=== PATIENT | female | born 1970 | race Caucasian/White ===

== ENCOUNTER 2020-03-28 04:04 | Inpatient (IN) | payer OTHER ==
[2020-03-28 04:45] LABS: INR-International Normal Ratio 1.4; PTT 37.1 sec (22.9-36.1); Prothrombin Time 17.5 sec (12.0-14.7)
[2020-03-28 05:16] LABS: Band 14 % (5-11); Hemoglobin 13.3 g/dL (12.0-16.0); Lymphocytes 2 % (21-51); MDiff Complete? YES; Mean Corpuscular HGB CONC 31.9 g/dL (32.0-36.0); Mean Corpuscular Hemoglobin 36.9 pg (27.0-31.0); Mean Platelet Volume 9.7 fL (7.4-10.4); Monocytes 4 % (0-10); Neutrophil 80 % (42-75); Platelet Count 227 thou/uL (130-400); Platelet Morphology Comment Appears Adequate; RBC Distribution Width 15.7 % (11.5-14.5); White Blood Cell (WBC) Count 28.8 thou/uL (4.8-10.8)
[2020-03-28 05:53] LABS: Albumin 2.8 g/dL (3.5-5.0)
[2020-03-28 05:54] LABS: Chloride 87 mmol/L (98-107); Potassium 3.4 mmol/L (3.5-5.1); Sodium 129 mmol/L (136-145)
[2020-03-28 05:55] LABS: Calcium 8.6 mg/dL (7.8-10.44)
[2020-03-28 05:56] LABS: Globulin 4.1 g/dL (2.4-3.5); Glucose 75 mg/dL (70-105); Protein, Total 6.9 g/dL (6.0-8.3)
[2020-03-28 05:57] LABS: Anion Gap 26 mmol/L (10-20); Bilirubin, Total 11.4 mg/dL (0.2-1.2); Carbon Dioxide 19 mmol/L (22-29)
[2020-03-28 05:59] LABS: Alkaline Phosphatase 451 U/L (40-110); Calc. Creatinine Clearance 0 mL/min (70-130); Estimated GFR-MDRD 71
[2020-03-28 06:00] LABS: BUN (Urea Nitrogen) 15 mg/dL (7.0-18.7)
[2020-03-28 06:01] LABS: AST (SGOT) 165 U/L (5-34)
[2020-03-28 06:02] LABS: ALT (SGPT) 93 U/L (8-55); Lipase 211 U/L (8-78)
--- NOTE | 2020-03-28 07:26 | RAD ---
RADIOGRAPH CHEST 1 VIEW: DATE: 03/28/2020 HISTORY: 49-year-old female with dyspnea and chest pain FINDINGS: There are no airspace densities, pulmonary edema, pneumothorax, or cardiomegaly. The lateral costophr enic angles are sharp. IMPRESSION: No acute cardiopulmonary findings.
--- NOTE | 2020-03-28 07:52 | CT ---
PRELIMINARY REPORT/[facility]/EMERGENCY AFTER HOURS PROCEDURE Receipt of this report by the clinical staff was confirmed with Lydia Rodriguez MD by Laura Yin on Mar 28, 2020 05:11:00 CDT. Addendum electronically signed by Beryl Yin on March 28, 2020 5:16:31 AM CDT EXAM: CT Abdomen and Pelvis with Intravenous Contrast CLINICAL HISTORY: Patient reports she has been having nausea and vomiting for over a month. Patient reports today she a lso has chest pain and shortness of breath today. Patient's abdomen is distended and skin appears jaundiced. Surgical history of cholecystectomy TECHNIQUE: Axial computed tomography images of the abdomen and pelvis with intravenous contrast. Coronal and sa gittal reformatted images provided. CONTRAST: With; ISOVUE 370, 95 ML intravenous. COMPARISON: CT\SR - CT ABDOMEN W WO CON - 10/05/2005 11:58 AM KETTLE HAND FINDINGS: LUNG BASES: No basilar airspace consolidation or pleural effusion. The heart is normal size. No pericardial eff usion. LIVER: Heterogeneous low attenuation of the liver with enlargement. The liver measures 22.6 cm in the right hepatic lobe. Portal vein is patent. No intrahepatic biliary dilation. GALLBLADDER AND BILE DUCTS: Surgical clips in the gallbladder fossa from prior cholecystectomy. No biliary duct dilation. PANCREAS: Unremarkable. No mass or ductal dilation. SPLEEN: Unremarkable. ADRENAL GLANDS: Unremarkable. KIDNEYS, URETERS, AND BLADDER: Unremarkable. No hydronephrosis or nephrolithiasis. No ureteral or bladder calculi. STOMACH AND BOWEL: No obstruction. No wall thickening. No CT evidence of colitis or acute diverticulitis. APPENDIX: No CT evidence for appendicitis. PERITONEUM: Intra-abdominal ascites and perihepatic ascites. No abscess. No intra-abdominal free air. LYMPH NODES: No lymphadenopathy. REPRODUCTIVE: Enhancing left adnexal mass measuring up to 6.2 cm. Enhancing uterine masses likely representing fibr oids which measure 3.9 cm and 3.7 cm respectively. VASCULATURE: No aortic aneurysm. BONES: No fracture or suspicious osseous abnormality. ABDOMINAL WALL AND SOFT TISSUES: Diffuse subcutaneous edema. IMPRESSION: 1. 6.2 cm left adnexal mass. 2. Intra-abdominal ascites and subcutaneous edema. Correlate for volume overload status, portal hyper tension or malignant ascites. 3. Hepatomegaly with heterogeneous low density. While nonspecific, this could represent acute hepatit is with edema, multiple intrahepatic masses, or less likely hepatic steatosis. Correlate with laboratory values. Further evaluation with ultrasound may be useful. 4. Uterine masses, which most commonly represent uterine fibroids. ELECTRONICALLY SIGNED BY: Paco Cronin M.D. Mar 28, 2020 5:07:40 AM CDT This report is intended for review by the ordering physician only, in accordance of law. If you recei ve this report in error, please call [facility] at [phone]. FINAL REPORT EXAM: CT ABDOMEN AND PELVIS HISTORY: Nausea and vomiting x1 month. Chest pain. Abdominal distention. Jaundice. COMPARISON: 07/06/2016, 10/05/2005 Procedure: Multiple contiguous axial images were obtained and a CT of the abdomen and pelvis with IV contrast. C oronal reformats were performed. FINDINGS: Lower Chest: within normal limits. Vessels: Normal caliber aorta Heart: Normal heart size. No significant pericardial fluid Abdomen: Portal vein:Patent Gallbladder: Surgically absent Liver: Enlarged heterogeneous liver with areas of fatty infiltration and fatty sparing. Better interr ogation of the hepatic parenchyma with an abdomen MRI is recommended. Pancreas: within normal limits. Spleen: within normal limits. Adrenals: within normal limits. Kidneys: Symmetric enhancement. No obstructive uropathy. Peritoneum: No free air or masses. There is extensive free fluid in the pelvis and abdomen. Bowel: Limited evaluation due to the lack of oral contrast administration. No evidence of bowel obstr uction. Ileocecal junction is unremarkable. Appendix is not appreciated. Nonspecific fluid adjacent to the cecal apex.. Scattered fecal material in a nondistended, nondilated colon. Mesentery and Retroperitoneum: No enlarged mesenteric or retroperitoneal lymph nodes. Abdominal Wall: Extensive edema in the subcutaneous fat suggesting anasarca Pelvis: Reproductive Organs: Heterogeneous appearing uterus with exophytic masses in the left adnexa, incompl etely evaluated. Additional exophytic mass is noted in the anterior aspect of the uterus. Pelvis: There is free fluid in the pelvis. Bladder: within normal limits. Bones: within normal limits. IMPRESSION: 1. This report is in agreement with initial report by [facility]. 2. Enlarged heterogeneous liver with areas of fat attenuation. Correlate clinically. Liver MRI would be beneficial for further interrogation. 2. Multiple uterine masses likely representing exophytic uterine leiomyomas. Confirmation pelvic MRI is recommended. The left adnexal lesion may be of ovarian origin. Better interrogation with pelvic MRI is recommended. 4. Nonvisualization of the appendix. Correlate clinically. Results of study conveyed to Dr. Du via [employer] connect 03/28/2020 at 8:06 AM code CR Transcribed Date/Time: 03/28/2020 7:58 AM
--- NOTE | 2020-03-28 07:57 | HP ---
PRIMARY CARE PROVIDER: Ebony Mccormick MD CHIEF COMPLAINT: Abdominal pain and distention. HISTORY OF PRESENT ILLNESS: This is a 49-year-old female, who presents to [facility] Emergency Department complaining of a several-month history of progressive abdominal distention, bloating with progressive decreased oral intake, intermittent nausea and lower extremity swelling. The patient noticed the symptoms earlier in the year of 2019; however, due to the COVID pandemic, was unable to secure timely followup and evaluation for her symptoms. The patient was previously taking antihypertensive medications as well as sertraline, which she states she is currently not taking due to inadequate followup with her primary care provider. The patient denied any trauma injury, travel history, family members with similar symptoms or strong family history of cancer. The patient states even though her abdomen is growing in size and feels uncomfortable, she continues to lose weight. She admits to decreased appetite and frequently has nausea and emesis. The patient also admits to loose stool consistently several times daily. The patient admits to decreased exercise or activity tolerance, becoming fatigued with minimal exertion. The patient denies taking any specific medication or therapy to alleviate her symptoms. The patient states she had some anxiety about following up and seeking a workup for her issues subsequently causing the delay and late presentation. In the emergency room, the patient underwent general evaluation including CT of the abdomen and pelvis showing massive hepatomegaly with evidence of likely metastatic process including a left adnexal mass with associated ascites. Metabolic screening revealed transaminitis with elevated total bilirubin of 11.4. PAST MEDICAL HISTORY: 1. Hypertension. 2. Fibromyalgia. 3. Migraine headaches. PAST SURGICAL HISTORY: 1. Status post cholecystectomy. 2. Status post tonsillectomy. ACCOUNTING SUPERVISOR HISTORY: Three prior miscarriages. Last Pap smear several years prior to this evaluation, but no history of abnormal Pap smears. Last menstrual period in August 2019, previous to this time was one year prior. CURRENT MEDICATIONS: Previously taking, 1. Losartan. 2. Metoprolol. 3. Clonidine. 4. Sertraline. None currently. ALLERGIES: NO KNOWN DRUG ALLERGIES. FAMILY HISTORY: Father with Alzheimer dementia. SOCIAL HISTORY: Resides in the [facility]. Self-employed. No current alcohol, tobacco or illicit drug use. Functional of all activities of daily living. REVIEW OF SYSTEMS: CONSTITUTIONAL: Negative for weight loss or gain, ability to conduct usual activities. SKIN: Negative for rash, itching. EYES: Negative for double vision, pain. ENT/MOUTH: Negative for nose bleeding, neck stiffness, pain, tenderness. CARDIOVASCULAR: Negative for palpitations, dyspnea on exertion, orthopnea. RESPIRATORY: Negative for shortness of breath, wheezing, cough, hemoptysis, fever or night sweats. GASTROINTESTINAL: Negative for poor appetite, abdominal pain, heartburn, nausea, vomiting, constipation, or diarrhea. GENITOURINARY: Negative for urgency, frequency, dysuria, nocturia. MUSCULOSKELETAL: Negative for pain, swelling. NEUROLOGIC/PSYCHIATRIC: Negative for anxiety, depression. ALLERGY/IMMUNOLOGIC: Negative for skin rash, bleeding tendency. Otherwise negative except as stated per HPI. PHYSICAL EXAMINATION: VITAL SIGNS: On admission, blood pressure 137/96, pulse 115, respiratory rate 20, temperature 98.2 degrees Fahrenheit, and O2 saturation 100% on room air. GENERAL APPEARANCE: This is a 49-year-old female, alert and oriented x3, pleasant, in mild distress. HEENT: Pupils are equal, round, reactive to light and accommodation. Extraocular muscles are intact. Bilateral scleral icterus noted. No conjunctival injection. Nares patent. OP is clear. Teeth in fair repair. NECK: Supple. No cervical adenopathy. No thyromegaly. No carotid bruits. No JVD appreciated. Cervical spine with full active and passive range of motion. No meningeal signs noted. CHEST: Diminished breath sounds in the bases bilaterally, otherwise clear. CARDIOVASCULAR EXAM: S1, S2 with tachycardia. No murmur, rub or gallop appreciated. ABDOMEN: Distended with tenderness to palpation diffusely. Hepatomegaly noted with liver margin 6 cm below the costal margin on the right and midline. Bowel sounds are positive in all 4 quadrants. There is no rebound or guarding noted. No CVA tenderness appreciated. EXTREMITIES: Warm and dry with fair turgor. Pitting edema to the knees bilaterally. Pulses palpable distally at the dorsalis pedis, posterior tibial, and popliteal arteries bilaterally. Capillary refill less than 2 seconds. NEUROLOGIC: Cranial nerves 2 through 12 are grossly intact. No focal or lateralizing signs appreciated. PERTINENT LABORATORY AND X-RAY FINDINGS: Sodium 129, potassium 3.4, chloride 87, CO2 of 19, anion gap 26, BUN 15, creatinine 0.86, estimated GFR 71, glucose 75, calcium 8.6. Total bilirubin 11.4, AST 165, ALT 93, and alkaline phosphatase 451. BNP 72. Albumin 2.8. Lipase 211. CBC showed a white blood cell count of 28.8, hemoglobin 13, hematocrit 42, MCV 116, platelet count 227 with 80% neutrophils and 14% bands. PT 17.5, INR 1.4, and PTT 37.1. CT of the abdomen and pelvis by my interpretation shows massive hepatomegaly with evidence of likely metastatic process. Ascites noted. Left adnexal mass in the 6 cm range. Scattered lymphadenopathy appreciated. Portable chest x-ray dated 03/28/2020 showed no acute cardiopulmonary process. EKG dated 03/28/2020 by my interpretation shows sinus tachycardia with heart rates in the 110 to 115. Normal R-wave progression noted in the precordial leads. Normal axis. No acute ST-T wave changes appreciated. ASSESSMENT AND PLAN: 1. Abdominal pain with ascites. The patient will be admitted to the medical floor. Suspect underlying metastatic process with questionable ovarian etiology. See workup as outlined below. Symptomatic and supportive management. 2. Liver masses. We will obtain CT-guided biopsy of the liver to further delineate and obtain pathological analysis. Consult Medical Oncology Service for any further recommendations. 3. Left adnexal mass. Suspicion for potential ovarian carcinoma. Consult STEAM STATION SUPERVISOR service for further evaluation and recommendations for management. Check CA-19-9, CA-125, and AFP. 4. Ascites. Suspect secondarily to problems listed previously. Supportive management. 5. Transaminitis with hyperbilirubinemia. Suspect metastatic process given above findings. Check hepatitis A, B, and C panel. Check abdominal ultrasound to confirm size and morphology of the liver and left adnexal region. 6. Hyponatremia. Suspect secondary to volume overload in addition to poor oral intake. 7. Hypokalemia. Potassium chloride supplementation with serial potassium monitoring. 8. Prophylaxis. SCDs while in bed. Pepcid 20 mg p.o. b.i.d. 9. Code status is full. Surrogate medical decision maker not identified. Job ID: [id number]
[2020-03-28 09:42] VITALS: BMI 26.5
[2020-03-28] MEDS ORDERED: Famotidine 20 MG TAB PO SCH (09:42)
[2020-03-28] MEDS ORDERED: hydrALAZINE 20 MG/ML VIAL SLOW IVP PRN (09:42)
[2020-03-28] MEDS ORDERED: Loperamide HCl 2 MG CAP PO PRN (09:42)
[2020-03-28] MEDS ORDERED: Acetaminophen 500 MG TAB PO PRN (09:42)
[2020-03-28] MEDS ORDERED: Ondansetron PF 4 MG/2 ML Vial IVP PRN (09:42)
[2020-03-28] MEDS: Famotidine 20 MG TAB PO SCH ×3 (10:40→20:19)
[2020-03-28 11:07] LABS: Alpha-Fetoprotein,Tumor Marker 3.6 ng/mL (0.89-8.78)
[2020-03-28 11:10] LABS: HBCM Index 0.14 S/CO (0-0.79); HBSAg Index 0.16 S/CO (0-0.99); Hep A IgM AB Non-Reactive (NonReactive); Hep A IgM S/CO 0.34 S/CO (0-0.79); Hep B Surf Ag Non-Reactive S/CO (NonReactive); Hep C IgG Ab Non-Reactive (NonReactive); Hep C Index 0.18 S/CO (0-0.79); Hepatitis B Core IgM Abs Non-Reactive (NonReactive)
[2020-03-28] MEDS ORDERED: Iopamidol 370 76% 100 ML VIAL ONE (11:56)
--- NOTE | 2020-03-28 12:32 | MRI ---
EXAM: MRI of the abdomen without and with contrast COMPARISON: None HISTORY: Abdominal pain with nausea and vomiting. History of cholecystectomy. TECHNIQUE: Multiplanar multi sequence MR images were taken of the abdomen without and with IV contras t. FINDINGS: Liver: The liver is enlarged. The liver demonstrates a smooth contour without sclerosis. No focal serjio er lesions or intrahepatic ductal dilatation. There is loss of signal on out of phase images in the liver consistent with fatty infiltration.. No suspicious enhancement. A trace amount of ascites is s een in the abdomen. Gallbladder: Absent Common bile duct: Normal caliber without filling defects Adrenal glands: Unremarkable. Kidneys: No hydronephrosis or focal renal lesions. No abnormal areas of enhancement. Spleen: Unremarkable. Pancreas: Unremarkable. No abnormal enhancement. Retroperitoneum: No enlarged lymph nodes Bones: No marrow signal abnormality. IMPRESSION: 1. Enlarged fatty liver 2. Trace ascites
[2020-03-28 12:59] LABS: SARS-CoV-2 MS2 Positive; SARS-CoV-2 N Gene Negative; SARS-CoV-2 S Gene Negative; SARS-CoV-2 by NAA Not Detected (NotDetected); SARS-CoV-2 orf1ab Negative
--- NOTE | 2020-03-28 13:34 | ULT ---
ULTRASOUND ABDOMEN: Date: 03/28/2020 HISTORY: Hepatomegaly. FINDINGS: The liver demonstrates increased echogenicity consistent with fatty infiltration. The liver length me asures 19.6 cm. There is free fluid consistent with ascites. The patient is post cholecystectomy. The common duct measures 7.0 mm in diameter. The spleen is enlarged measuring 14.0 cm in length. The kid neys are normal. The pancreas, aorta, and IVC are obscured by overlying bowel gas. IMPRESSION: 1. Hepatomegaly with fatty liver. 2. Splenomegaly. 3. Ascites. POS: AH
[2020-03-28] MEDS ORDERED: HYDROcodone/Acetaminophen 10/325 mg Tablet PO PRN (15:31)
--- NOTE | 2020-03-28 15:36 | PDOC.EVN ---
Event Note - Event Note Event Note: inherited patient this morning. presented with abdominal distention for 1 year, pain for 2 weeks. Imaging studies c/w fatty liver, uterine and adnexal mass, CA- 125 grossly elevated. . Started on opioids for severe pain. May require surgical exploration in context of adnexal mass so holding on paracentesis. Pending evaluation by Onc and ARTIST COLOR SEPARATION
[2020-03-28] MEDS ORDERED: oxyCODONE ER 10 MG TAB PO SCH (15:45)
--- NOTE | 2020-03-28 18:56 | CON ---
DATE OF CONSULTATION: REASON FOR CONSULT: Adnexal mass. HISTORY OF PRESENT ILLNESS: Ms. Montanez is a 49-year-old female, who presented to the emergency room with progressive abdominal distention, bloating, and worsening pain. She has had intermittent nausea, early satiety, and occasional diarrhea. In the emergency room, she had a chemistry drawn, which showed a bilirubin of 11.4, AST of 65, ALT of 93, and alkaline phosphatase of 451. Her lipase was elevated at 211. She underwent an abdominal and pelvis CT scan, which showed a 6.2 cm left adnexal mass. There was intraabdominal ascites and subcutaneous edema. She had hepatomegaly. There were also uterine masses. She was admitted for treatment and further workup. She had a CA-125 drawn, which was greater than 3300. She underwent an abdominal MRI. The liver had smooth contour without sclerosis. There were no focal liver lesions or intrahepatic ductal dilatation. It was consistent with fatty infiltration. There was trace ascites. Abdominal ultrasound confirmed the same findings. The patient has a history of hypertension. She has had a cholecystectomy. She has had three prior miscarriages and her last gynecological exam was several years ago. Her periods have been intermittent with the last one being in August. She complains of abdominal pain and bloating. Otherwise, denies shortness of breath or chest pain. She states that she did not notice that her sclera were icteric. PAST MEDICAL HISTORY: 1. Hypertension. 2. Fibromyalgia. 3. Migraine headaches. PAST SURGICAL HISTORY: 1. Cholecystectomy. 2. Tonsillectomy. ALLERGIES: NO KNOWN DRUG ALLERGIES. HOME MEDICATIONS: 1. Clonidine. 2. Losartan. 3. Metoprolol. 4. Prilosec. 5. Zoloft. FAMILY HISTORY: No history of breast or cervical cancer. SOCIAL HISTORY: Single, lives locally, works from home. No alcohol, tobacco, or illicit drug use. REVIEW OF SYSTEMS: A 12-point review of systems is negative except for noted in HPI. PHYSICAL EXAMINATION: VITAL SIGNS: Temperature is 98.5, pulse is 101, respiratory rate 18, BP is 131/ 84. She is 98% on room air. GENERAL: A well-developed, well-nourished female, in no acute distress. HEENT: Normocephalic and atraumatic. Pupils are equal and reactive to light. Her sclerae are icteric. NECK: Supple. CV: Regular rate and rhythm. LUNGS: Clear anterior. ABDOMEN: Distended and tender to palpation. Unable to palpate liver secondary to pain and ascites. EXTREMITIES: No clubbing or cyanosis. SKIN: No rash, but positive jaundice. HEMATOLOGICAL: No petechiae or purpura. NEUROLOGIC: Nonfocal. PERTINENT LABORATORY DATA AND X-RAYS: WBCs 28.8, hemoglobin 13.3, hematocrit 41.6, MCV is 116, platelet count 227,000. She has 80% neutrophils, 14% bands, and 2% lymphocytes. PT 7.5, INR is 1.4, and PTT is 37.4. Sodium is 129, potassium 3.4 , chloride 87, CO2 is 19, BUN is 15, creatinine 0.86, calcium 8.6, bilirubin is 11.4, AST is 165, ALT is 93, alkaline phosphatase is 451. Troponin is negative. BNP is normal. Serum total protein is 6.9, albumin 2.8, globulin 4.1. Lipase is 211. AFP is 3.6. CA-125 3317. COVID is negative. Hepatitis panel is negative. Radiology per HPI. ASSESSMENT: 1. Hepatomegaly with hyperbilirubinemia. 2. Left adnexal mass with elevated CA-125. 3. Ascites. DISCUSSION: The patient's pain has been controlled with oxycodone. On MRI, there is no evidence of liver lesions, there appears to be fatty infiltration. I spoke with Dr. Du, who will trend her bilirubin. She needs a GI referral. She will also likely need a paracentesis prior to discharge. This can be sent for cytology. Gynecology has been consulted for her adnexal mass. Pelvic MRI has been ordered. She will likely need to see Gynecology Oncology, which is in [place] for biopsy and possible debulking. Case has been discussed with Dr. Ruelas. Thank you for the consult. We will follow along with her hospital course. Job ID: [id number] [facility]
[2020-03-28] MEDS ORDERED: Sodium Chloride 0.9% 1,000 ML IV SCH (19:45)
[2020-03-28] MEDS: oxyCODONE ER 10 MG TAB PO SCH (20:19)
[2020-03-28] MEDS: Senokot S 8.6-50 MG TAB PO SCH (20:21)
--- NOTE | 2020-03-28 22:01 | ULT ---
PELVIC ULTRASOUND: 03/28/20 Transabdominal and endovaginal ultrasound of pelvis performed. INDICATIONS: Left adnexal mass is demonstrated on CT abdomen and pelvis of 03/28/20. FINDINGS: Uterus is enlarged and heterogeneous. Possible large fibroid measuring up to 3.5 cm. Endometrial stripe appears normal. The right ovary not identified. In the left adnexa, there is a mass measuring 3.0 x 3.5 cm. Color Doppler and spectral analysis demon strates flow to this mass. This corresponds to CT findings. No additional information by ultrasound. Ascites is again noted. IMPRESSION: Left adnexal mass as noted on CT. Further evaluation with pelvic MRI is recommended as recommended fr om the CT exam of 03/28/20. POS: AGW
[2020-03-28] MEDS: HYDROcodone/Acetaminophen 10/325 mg Tablet PO PRN (23:52)
[2020-03-29] MEDS: HYDROcodone/Acetaminophen 10/325 mg Tablet PO PRN ×3 (05:52→19:28)
[2020-03-29 07:21] LABS: ALT (SGPT) 88 U/L (8-55); AST (SGOT) 142 U/L (5-34); Albumin 2.8 g/dL (3.5-5.0); Alkaline Phosphatase 403 U/L (40-110); Anion Gap 15 mmol/L (10-20); BUN (Urea Nitrogen) 18 mg/dL (7.0-18.7); Bilirubin, Total 9.7 mg/dL (0.2-1.2); Calc. Creatinine Clearance 109 mL/min (70-130); Calcium 8.5 mg/dL (7.8-10.44); Carbon Dioxide 32 mmol/L (22-29); Chloride 87 mmol/L (98-107); Estimated GFR-MDRD 85; Globulin 4.1 g/dL (2.4-3.5); Glucose 116 mg/dL (70-105); Protein, Total 6.9 g/dL (6.0-8.3); Sodium 131 mmol/L (136-145)
[2020-03-29 07:24] LABS: Potassium 2.5 mmol/L (3.5-5.1)
[2020-03-29 07:55] LABS: Hemoglobin 10.8 g/dL (12.0-16.0); Mean Corpuscular HGB CONC 32.3 g/dL (32.0-36.0); Mean Corpuscular Hemoglobin 37.2 pg (27.0-31.0); Mean Platelet Volume 8.8 fL (7.4-10.4); Platelet Count 163 thou/uL (130-400); RBC Distribution Width 15.2 % (11.5-14.5); Red Blood Cell (RBC) Count 2.89 mill/uL (4.20-5.40); White Blood Cell (WBC) Count 20.7 thou/uL (4.8-10.8)
[2020-03-29] MEDS ORDERED: Potassium Chloride 20 MEQ TAB PO SCH ×2 (08:15→12:45)
[2020-03-29 09:06] LABS: Anisocytosis SLIGHT = 6-15 cells (100X) (0-5/hpf); Band 9 % (5-11); Eosinophils 4 % (0-10); Lymphocytes 10 % (21-51); MDiff Complete? YES; Monocytes 5 % (0-10); Myelocyte 1 % (0-0); Neutrophil 69 % (42-75); Platelet Morphology Comment Appears Adequate
[2020-03-29] MEDS: Famotidine 20 MG TAB PO SCH ×2 (09:09→21:11)
[2020-03-29] MEDS: Metoprolol Tartrate 50 MG TAB PO SCH (09:10)
[2020-03-29] MEDS: oxyCODONE ER 10 MG TAB PO SCH ×2 (09:11→21:12)
[2020-03-29] MEDS: Senokot S 8.6-50 MG TAB PO SCH ×2 (09:13→21:11)
--- NOTE | 2020-03-29 10:08 | CON ---
DATE OF CONSULTATION: 03/28/2020 CHIEF COMPLAINT: Adnexal mass. HISTORY OF PRESENT ILLNESS: The patient is a 49-year-old female who presented to the emergency room complaining of a several month history of progressive abdominal distention, bloating, and progressively decreased oral intake. Her evaluation included COVID, CT scan, and was noted to have a 6.2 cm left adnexal mass, intra-abdominal ascites, portal hypertension, hepatomegaly with a heterogeneous low-density, and uterine masses, likely fibroids. Laboratory findings were significant for negative COVID testing. CA-125 of 3400. A CA 15-3 of 81.1. Elevated LFTs, leukocytosis, and hyponatremia. The patient was admitted to the hospital. At time of my evaluation, the patient had understanding that she has the potential of having cancer that this left adnexal mass may represent ovarian cancer. She had seen an oncologist and primary provider up to this point. In our conversation last night, the patient shared with me that she began having symptoms about a year ago and due to a combination of circumstances did not seek attention sooner. She reports severe anxiety in presence of crowds as her primary concern, Earlier in the spring when she initially attempted to get seen for her symptoms, had difficulty attending followup due to the onset of the gallo pandemic. The patient does report she has difficulty traveling. She also reports she has no family or friends or support here in the community. She primarily lives stays home, ordering all of her needed supplies by mail, and works out of her house. She does have a sister in [place] that she is connected with who is a nurse there at [facility] [employer]. As we were discussing her next steps in management, i.e. connection with gynecology-oncologist for diagnosis, staging, and management, we did discuss Dr. Isamar Wilcox out of the [place] as a great option however Given her total circumstances sending her to [facility] may prove more beneficial as she has support there in [place], i.e. her sister who can give her a place to stay in the short interim while she needs more intensive care. The patient is going to be considering these options and talk to her sister. Also in consideration of her insurance, she is concerned where her insurance may not cover one or both of the proposed hospitals and providers. We made some attempts trying to identify her insurance and network providers in hospitals and we were just unable to navigate the website. PHYSICAL EXAMINATION: VITAL SIGNS: At the time of my visit with her, blood pressure is 129/80, O2 sats 97%, respiratory rate 17, pulse of 101, temperature 98.3. GENERAL: She appeared to be comfortable, supine in the bed, was alert and oriented, cooperative, and pleasant to interact with. ASSESSMENT AND PLAN: We spent about 30 minutes reviewing her history and her laboratory findings, her concerns, and management options. At this time, we have no firm recommendations as where to send her as the patient's social circumstances may dictate much of this, but we would recommend either [facility] or Dr. Isamar Wilcox out of the [place] and also given the patient's overall medical condition, should the patient be stable for discharge home, she can follow up as an outpatient with either these groups. If she is sick enough that requires in- house transfer that also can be arranged through the transfer center. Contact information for Dr. Isamar Wilcox, her mobile #[phone], her work #[phone], her fax #[phone]. Addendum: Pt will prefer transfer to [facility] where her sister lives. Job ID: [id number] MTDD
[2020-03-29 12:23] LABS: Anion Gap 15 mmol/L (10-20); BUN (Urea Nitrogen) 19 mg/dL (7.0-18.7); Calc. Creatinine Clearance 117 mL/min (70-130); Carbon Dioxide 27 mmol/L (22-29); Chloride 90 mmol/L (98-107); Estimated GFR-MDRD Greater than 90; Glucose 131 mg/dL (70-105); Sodium 129 mmol/L (136-145)
[2020-03-29 12:30] LABS: Potassium 2.7 mmol/L (3.5-5.1)
[2020-03-29 14:55] LABS: Bacteria/HPF None Seen HPF (None Seen); Bilirubin 3+ (Negative); Blood, Urine Trace (Negative); Clarity Turbid (Clear); Glucose, Urine (Dipstick) Normal (Negative); Ketone, Urine Trace mg/dL (Negative); Leukocyte 75 Leu/uL (Negative); Nitrite Negative (Negative); Protein, Urine (Dipstick) 50 mg/dL (Neg-Trace); Renal Epithelial 0-3 HPF (None Seen); Specific Gravity, Urine 1.045 (1.002-1.036); Transitional Epithelial 0-3 HPF (None Seen); Urobilinogen 6 mg/dL (Less than 2)
--- NOTE | 2020-03-29 16:57 | MRI ---
MR OF THE PELVIS WITH AND WITHOUT CONTRAST: 03/29/20 INDICATION: History of abdominal pain and adnexal mass. COMPARISON: CT of the abdomen and pelvis dated 03/28/20 and pelvic ultrasound dated 03/28/20. FINDINGS: 14 mL of Multihance is utilized for the exam. The lobulated mass seen within the region of the left adnexa on the comparison examinations measures 3.7 x 6.4 x 5.1 cm and has a similar signal intensity as multiple additional fibroids within the uter us. This lesion is contiguous with the left superolateral aspect of the uterine fundus which is consi stent with a large pedunculated subserosal fibroid. There is an additional subserosal fibroid involvi ng the left aspect of the uterine body measuring 3.6 cm. Prominent intramural fibroid seen involving the right uterine fundus measuring 4.9 cm. There is a 1.3 cm intramural fibroid within the uterine fundus. The left adnexa is normal appearing measuring 1.7 x 1.1 cm on image 20 of series 6. The right adnexa is normal appearing measuring 1.9 x 1.6 cm on the same image series. No enlarged lymph node i s evident. There is moderate free fluid involving the pelvis. Small Nabothian cysts are seen within t he cervix. No bone marrow signal abnormality is noted. There is scattered diverticula involving the c olon. IMPRESSION: 1. Multifibroid uterus. The suspected left adnexal lesion is a large pedunculated subserosal fib roid. The left adnexa is normal appearing. 2. Colonic diverticulosis. 3. Moderate free fluid in the pelvis. 4. Multiple Nabothian cysts. POS: MARILU
--- NOTE | 2020-03-29 16:59 | PDOC.HOSPP ---
- Subjective Encounter Date: 03/29/20 Encounter Time: 07:00 Subjective: The patient reports having recurrent nausea, stated she was vomiting clear liquid for days. Also reports increasing abdominal distension/pain/swelling. Some SOB present also from abdominal distension - Objective Vital Signs & Weight: Vital Signs (12 hours) Temp Pulse Resp BP BP Pulse Ox 03/29/20 16:26 98.0 F 79 18 117/76 99 03/29/20 07:33 98.2 F 97 16 144/86 H 97 03/29/20 05:35 98.4 F 97 17 123/74 98 Weight Admit Weight 159 lb Weight 159 lb 9.6 oz I&O: 03/28/20 03/29/20 03/30/20 06:59 06:59 06:59 Intake Total 480 1250 Output Total 350 300 Balance 130 950 Result Diagrams: 03/29/20 06:19 03/29/20 11:46 Hospitalist ROS - Review of Systems Constitutional: denies: fever, chills - Medication Medications: Active Medications Generic Name Dose Route Start Last Admin Trade Name Freq PRN Reason Stop Dose Admin Hydrocodone Bitart/Acetaminophen 1 tab 03/28/20 15:38 03/29/20 14:22 [place] 10/325 PO 1 tab Q4H PRN Administration Breakthrough Pain Famotidine 20 mg 03/28/20 21:00 03/29/20 09:09 Pepcid PO 20 mg BID SHUKRI Administration Metoprolol Tartrate 50 mg 03/29/20 09:00 03/29/20 09:10 Lopressor PO 50 mg DAILY SHUKRI Administration Oxycodone HCl 10 mg 03/28/20 21:00 03/29/20 09:11 Oxycontin PO 10 mg Q12HR SHUKRI Administration Pantoprazole Sodium 40 mg 03/29/20 09:00 03/29/20 09:09 Protonix PO 40 mg DAILY SHUKRI Administration Senna/Docusate Sodium 1 tab 03/28/20 21:00 03/29/20 09:13 Senokot S PO Not Given BID SHUKRI Sertraline HCl 50 mg 03/29/20 09:00 03/29/20 09:09 Zoloft PO 50 mg DAILY SHUKRI Administration Sodium Chloride 10 ml 03/28/20 09:00 03/29/20 09:09 Flush - Normal Saline IVF 10 ml Q12HR SHUKRI Administration - Exam General Appearance: NAD, awake alert Eye: PERRL, anicteric sclera ENT: normocephalic atraumatic, no oropharyngeal lesions Neck: no JVD Heart: RRR, no murmur, no gallops, no rubs Respiratory: CTAB, no wheezes, no rales, no ronchi Gastrointestinal: soft, non-tender, non-distended, normal bowel sounds Extremities: no cyanosis, no clubbing, no edema Skin: normal turgor, no lesions, no rashes Neurological: cranial nerve grossly intact, normal sensation to touch, no focal deficits, no new deficit Musculoskeletal: normal tone, normal strength, no muscle wasting Psychiatric: normal affect, normal behavior, A&O x 3, oriented to person Hosp A/P - Plan CT abdomen: 6.2 cm left adnexal mass. Intra-abdominal ascites and subcutaneous edema. Hepatomegaly. Uterine masses representing fibroids Possible acute hepatitis. Chest X ray 03/28: no acute cardiopulmonary findings MRI abdomen 03/28: liver is enlarged. Fatty liver. Trace ascites US abdomen: hepatomegaly with fatty liver. Splenomegaly . Ascites This is a 49 year old female with past medical history of hypertension, GERD who presented with worsening abdominal pain/swelling/ nausea, vomiting, found to have ovarian mass suspicious for cancer 6.2 cm left adnexal mass with mild ascites - noted on CT abdomen - gynecology consulted, recommended tumor debulking surgery, but cannot be done here. Spoke to gynecology at [facility], Dr. Rohit Lux has recommended outpatient surgery. Patient will need diagnostic paracentesis. Spoke with Dr. Head, will schedule this for Tuesday - oncology consulted given CA-125 >3000, recommended surgical management first Hyponatremia - worsening to 129. . I spoke to IR regarding US results, not enough ascites ( only 500 cc) to do a therapeutic paracentesis - will do gentle IV hydration for a few hours given recurrent nausea/vomiting Hypokalemia - potassium 2.5, replaced will give 60 meq - repeat potassium 2.7, will give another 60 meq #Transaminitis - improving #Fatty liver - noted on US. MRI shows no metastatic lesions. Hepatitis panel negative - GI was Leukocytosis - likely from ovarian cancer - WBC improving without antibiotics. Will hold off for now, no signs of sepsis - UA shows 11-20 WBC. Will send urine culture DVT prophylaxis: SCDS, hold anticoagulation in anticipation of paracentesis Code status: full code
[2020-03-29] MEDS: Sodium Chloride 0.9% 1,000 ML IV SCH (18:12)
[2020-03-29] MEDS: Ondansetron ODT 4 MG TAB PO PRN (19:31)
--- NOTE | 2020-03-29 19:31 | ULT ---
BILATERAL LOWER EXTREMITY VENOUS DUPLEX EXAM: 03/29/20 HISTORY: Bilateral leg edema and pain. Real time color Doppler evaluation of the right and left lower extremities was performed. This includ ed evaluation of the common femoral, superficial and profunda femoral, saphenous, popliteal, and post erior tibial veins. This shows patent deep venous systems bilaterally. There is normal compressibilit y and augmentation. There is no evidence of DVT. IMPRESSION: No evidence of DVT of either lower extremity. POS: JUVENTINO
[2020-03-29] MEDS ORDERED: Clotrimazole 1 % Cream 30 GM TUBE TOP SCH (21:15)
[2020-03-30] MEDS: Sodium Chloride 0.9% 1,000 ML IV SCH ×2 (06:09→20:53)
[2020-03-30 07:01] LABS: Hemoglobin 10.7 g/dL (12.0-16.0); Mean Corpuscular HGB CONC 32.4 g/dL (32.0-36.0); Mean Platelet Volume 9.3 fL (7.4-10.4); Platelet Count 141 thou/uL (130-400); RBC Distribution Width 15.3 % (11.5-14.5); Red Blood Cell (RBC) Count 2.83 mill/uL (4.20-5.40)
[2020-03-30 07:18] LABS: Anion Gap 14 mmol/L (10-20); BUN (Urea Nitrogen) 17 mg/dL (7.0-18.7); Calc. Creatinine Clearance 135 mL/min (70-130); Carbon Dioxide 26 mmol/L (22-29); Chloride 95 mmol/L (98-107); Estimated GFR-MDRD Greater than 90; Glucose 95 mg/dL (70-105); Potassium 3.7 mmol/L (3.5-5.1); Sodium 131 mmol/L (136-145)
[2020-03-30] MEDS: oxyCODONE ER 10 MG TAB PO SCH ×2 (08:08→21:07)
[2020-03-30] MEDS: Famotidine 20 MG TAB PO SCH ×2 (08:08→20:42)
[2020-03-30] MEDS: Senokot S 8.6-50 MG TAB PO SCH ×2 (08:09→21:10)
[2020-03-30] MEDS: Metoprolol Tartrate 50 MG TAB PO SCH (08:34)
[2020-03-30] MEDS: HYDROcodone/Acetaminophen 10/325 mg Tablet PO PRN ×2 (10:13→14:58)
--- NOTE | 2020-03-30 11:37 | PDOC.HOSPP ---
- Subjective Encounter Date: 03/30/20 Encounter Time: 11:25 non-verbal Subjective: chills, sweats, RUQ pain, jaundice - Objective Vital Signs & Weight: Vital Signs (12 hours) Temp Pulse Resp BP BP Pulse Ox 03/30/20 10:09 93 123/82 03/30/20 08:08 97 03/30/20 07:48 98.4 F 93 20 98/63 97 03/30/20 05:03 98.2 F 93 20 124/82 99 Weight Admit Weight 159 lb Weight 159 lb 9.6 oz I&O: 03/29/20 03/30/20 03/31/20 06:59 06:59 06:59 Intake Total 480 3000 Output Total 350 600 Balance 130 2400 Result Diagrams: 03/30/20 06:12 03/30/20 06:12 Additional Labs: Accuchecks 03/29/20 19:51 POC Glucose 114 H Hospitalist ROS - Medication Medications: Active Medications Generic Name Dose Route Start Last Admin Trade Name Freq PRN Reason Stop Dose Admin Hydrocodone Bitart/Acetaminophen 1 tab 03/28/20 15:38 03/30/20 10:13 [place] 10/325 PO 1 tab Q4H PRN Administration Breakthrough Pain Famotidine 20 mg 03/28/20 21:00 03/30/20 08:08 Pepcid PO 20 mg BID SHUKRI Administration Sodium Chloride 1,000 mls @ 75 mls/hr 03/29/20 17:00 03/30/20 06:09 Normal Saline 0.9% IV 1,000 mls .[id number] SHURKI Administration Metoprolol Tartrate 50 mg 03/29/20 09:00 03/30/20 08:34 Lopressor PO Not Given DAILY SHUKRI Ondansetron HCl 4 mg 03/28/20 09:42 03/29/20 19:31 Zofran Odt PO 4 mg Q6H PRN Administration Nausea/Vomiting Oxycodone HCl 10 mg 03/28/20 21:00 03/30/20 08:08 Oxycontin PO 10 mg Q12HR SHUKRI Administration Pantoprazole Sodium 40 mg 03/29/20 09:00 03/30/20 08:08 Protonix PO 40 mg DAILY SHUKRI Administration Senna/Docusate Sodium 1 tab 03/28/20 21:00 03/30/20 08:09 Senokot S PO Not Given BID SHUKRI Sertraline HCl 50 mg 03/29/20 09:00 03/30/20 08:08 Zoloft PO 50 mg DAILY SHUKRI Administration Sodium Chloride 10 ml 03/28/20 09:00 03/30/20 08:10 Flush - Normal Saline IVF Not Given Q12HR SHUKRI - Exam General Appearance: awake alert Eye: scleral icterus Neck: no JVD Heart: RRR, no murmur Respiratory: CTAB Gastrointestinal: soft, normal bowel sounds Gastrointestinal - other findings: hepatomegaly, RUQ tenderness Extremities: 1+ LE edema Hosp A/P (1) Ascending cholangitis Code(s): K83.09 - OTHER CHOLANGITIS Status: Acute (2) Adnexal mass Code(s): N94.89 - OTH COND ASSOC W FEMALE GENITAL ORGANS AND MENSTRUAL CYCLE Status: Acute (3) Ascites Code(s): R18.8 - OTHER ASCITES Status: Acute Qualifiers: Ascites type: other type Qualified Code(s): R18.8 - Other ascites (4) Hyponatremia Code(s): E87.1 - HYPO-OSMOLALITY AND HYPONATREMIA Status: Acute (5) HTN (hypertension) Code(s): I10 - ESSENTIAL (PRIMARY) HYPERTENSION Status: Acute - Plan RIQ pain, abnormal liver fcn test, leukocytosis suggest ascending cholangitis Start ceftriaxone, GI consult etc
[2020-03-30] MEDS ORDERED: cefTRIAXone Sodium 2 MG in Syringe 0 ML IVPB SCH (11:45)
[2020-03-30] MEDS: cefTRIAXone\\ROCEPHIN 2 GM in Sodium Chloride 0.9% 100 ML IVPB SCH (12:41)
[2020-03-30] MEDS: Ondansetron ODT 4 MG TAB PO PRN ×2 (12:46→20:43)
--- NOTE | 2020-03-30 16:48 | CON ---
DATE OF CONSULTATION: 03/30/2020 REASON FOR CONSULTATION: Abnormal LFTs and history of chills off and on, and possibility of ascending cholangitis. HISTORY OF PRESENT ILLNESS: Ms. Olivia Montanez is a very pleasant 49-year-old female, hospitalized with abdominal distention, abdominal bloating, abdominal pain, occasional nausea, generalized weakness. Since admission, she has had extensive workup done. She had abdominal sonogram, which revealed normal sized common bile duct measuring 7 mm. No liver mass seen. The liver is enlarged and shows evidence of fatty liver. Abdominal and pelvic CAT scan, the pelvic CAT scan showed a left adnexal mass, the possibility of malignancy cancer. Her CA-125 level is markedly elevated, more than 3000. She was seen by Ms. Tracie Garcia from Oncology service and also by Dr. Luo from the Gynecology service. The patient has had an abdominal sonogram and abdominal CAT scan and also an MRI. The MRI shows normal caliber common bile duct and no filling defects seen. The same findings are noted by CT scan of the abdomen and also the sonogram. The patient has had previous cholecystectomy in 2005. Besides the right liver, left adnexal mass and also fibroid, she also had mild minimal ascites. As per the progress note from the hospitalist service, there is some indication of possible diagnostic paracentesis tomorrow. Apparently, claims adjuster crop has recommended the patient to go to the [facility] for biopsy and removal of the left adnexal mass. The patient had no prior history related to tumor disease. Abdominal pain is more generalized and not localized. She actually feels more sore abdomen. She also feels bloated and swollen. She has a history of weight loss of nearly about 20 pounds over the last 3 or 4 months. She also complains of edema of the legs and also facial swelling further. Since admission, she has had no fever. Although she has history of feeling cold and shaking, there is no documented fever. Again, her symptoms are going on for a while, there is nothing acute. The patient has no right upper quadrant pain although she feels full and bloated. Her admitting lab shows bilirubin level of 11 and has been dropping down slowly to 9.7 yesterday with direct bilirubin of 7.4. Her AST is 142, ALT 88, alkaline phosphatase is 403. Albumin level is 2.8. Her CA-125 is 3417. level is normal at 3.6. No relevant history. ALLERGIES: NONE. SOCIAL HISTORY: The patient does not smoke. She drinks alcohol at least 2 to 3 shots of vodka with Sprite three times a week ago. She denies excessive alcohol drinking. Her MCV is very high at 117, possibly represents more alcohol intake than what she admits to. MEDICAL ILLNESS: 1. Hypertension. 2. Migraine. SURGERIES: 1. She has had a tonsillectomy. 2. Cholecystectomy for gallstones in 2005. FAMILY HISTORY: No family history of any cancer, heart attack, stroke, etc. Positive for dementia, Alzheimer disease. MEDICATIONS: Reviewed. REVIEW OF SYSTEMS: 10 point system reviewed. CONSTITUTIONAL: History of fatigue, poor energy, abdominal bloating, weight loss. HEAD: History of migraine headaches. At the present time, no headache. EYES: No diplopia, no impaired vision. EARS: Some mild hearing impairment. NOSE: No nose bleeding. THROAT: No sore throat, no dysphagia. NECK: No stiffness or any limitation of movement. LUNGS: No chronic coughing, hemoptysis. CARDIOVASCULAR: No chest pain, no palpitation. No dyspnea, orthopnea, PND. GI: Abdominal pain is more generalized than localized, abdominal bloating, abdominal swelling. : No dysuria, but the urine appears darker than usual. No hematuria. MUSCULOSKELETAL: Not known. NEUROLOGIC: Not known. ENDOCRINE: Not known. HEMATOLOGICAL: Not known. PHYSICAL EXAMINATION: GENERAL: She is a very pleasant female, appears very comfortable. She is jaundiced. VITAL SIGNS: Stable. Temperature 98.4 degrees Fahrenheit, pulse is 93, blood pressure is 124/82. NECK: Supple. No adenitis or thyromegaly noted. CARDIOVASCULAR: Normal heart sounds. LUNGS: Clear to auscultation. ABDOMEN: Mildly distended and protuberant. Abdomen is minimally tender more diffusely than localized. She has enlarged liver. There are no other masses felt. Bowel sounds are normal. EXTREMITIES: Reveal 2+ edema. LABORATORY DATA: On admission, sodium 135, potassium 2.5, which has come back normal at 3.7, chloride is back to normal at 95, bicarb 24, BUN is 17, creatinine 0.59, glucose 114, calcium 8.5. Bilirubin 9.7 yesterday, target bilirubin 7.4. AST is 142, ALT 88, alkaline phosphatase 403. Albumin 2.8. CA 125 of 33,417. CBC from today, WBC 23,000, hemoglobin is 10.7, hematocrit 33.1, MCV is 117, which is remarkably elevated. Differential count, polymorphs 69, bands 9, lymphocytes 10, platelet count 163,000. Abdominal sonogram shows fatty liver. The liver is enlarged. The CBD measures about 7 mm. The CAT scan shows the same findings and also shows the left adnexal mass and also uterine fibroids. MRI abdomen shows a normal caliber bile duct and there was no filling defects or any stricture seen. IMPRESSION: 1. A 49-year-old female with abdominal bloating, abdominal swelling, and mild ascites on CAT scan and abdominal sonogram. She has enlarged liver on scan and sonogram. Her common bile duct is of normal caliber and also the MRI does not show any filling defects. 2. Abnormal LFTs with very high MCV, possibly represents chronic alcohol liver disease-fatty liver. Her liver function elevation is consistent with alcoholic liver disease, fatty liver. 3. Left adnexal mass. 4. Uterine fibroids. Based on the lab data and clinical history, I do not feel that she has ascending cholangitis. In anyway she has an MRI which shows normal caliber bile duct and no filling defects seen. Her abnormal LFTs are most likely from alcohol intake and chronic liver disease. The adnexal findings could very well be due to alcohol liver disease versus malignant ascites because of the left ovarian mass. RECOMMENDATIONS: 1. I agree with diagnostic paracentesis. 2. Followup liver function tests. 3. Consider transferring her to tertiary care for her left adnexal mass and for proper therapy. Job ID: [id number]
[2020-03-30] MEDS: Clotrimazole 1 % Cream 30 GM TUBE TOP SCH (20:44)
[2020-03-31] MEDS: HYDROcodone/Acetaminophen 10/325 mg Tablet PO PRN ×2 (06:36→14:01)
[2020-03-31] MEDS: Famotidine 20 MG TAB PO SCH ×2 (08:45→20:50)
[2020-03-31] MEDS: oxyCODONE ER 10 MG TAB PO SCH ×2 (08:46→20:51)
[2020-03-31] MEDS: Metoprolol Tartrate 50 MG TAB PO SCH (08:48)
[2020-03-31] MEDS: Senokot S 8.6-50 MG TAB PO SCH ×2 (08:58→20:50)
[2020-03-31] MEDS: Sodium Chloride 0.9% 1,000 ML IV SCH (08:58)
--- NOTE | 2020-03-31 10:28 | PDOC.HOSPP ---
- Subjective Encounter Date: 03/31/20 Encounter Time: 10:25 Subjective: f/u for L adnexal mass, ascites, hepatomegaly and concern for intra-abdominal neoplasm. Elevated CA-125, CA 19-9 noted. Plan for paracentesis today. - Objective Vital Signs & Weight: Vital Signs (12 hours) Temp Pulse Resp BP Pulse Ox 03/31/20 07:59 98.6 F 99 18 130/83 99 Weight Admit Weight 159 lb Weight 159 lb 9.6 oz I&O: 03/30/20 03/31/20 04/01/20 06:59 06:59 06:59 Intake Total 3000 2200 Output Total 600 600 Balance 2400 1600 Result Diagrams: 03/30/20 06:12 03/30/20 06:12 Additional Labs: Microbiology 03/29/20 19:00 Urine clean catch Urine Culture - Preliminary Escherichia coli Laboratory Tests 03/28/20 03/28/20 03/28/20 04:25 05:29 06:30 WBC 28.8 H Potassium Total Bilirubin 11.4 H AST 165 H Tumor Marker AFP CA 15-3 Antigen CA 19-9 Antigen CA 125 ([facility]) COVID- PCR Not Detected Hepatitis A IgM Ab Hep Bs Antigen Hep B Core IgM Ab Hepatitis C Antibody 03/28/20 03/28/20 03/28/20 10:09 10:10 10:10 WBC Potassium Total Bilirubin AST Tumor Marker AFP 3.6 CA 15-3 Antigen 81.1 H CA 19-9 Antigen 1580 H CA 125 ([facility]) 3413.1 H 3417.0 H COVID- PCR Hepatitis A IgM Ab Hep Bs Antigen Hep B Core IgM Ab Hepatitis C Antibody 03/28/20 03/29/20 03/29/20 10:10 06:19 06:19 WBC 20.7 H Potassium 2.5 L* Total Bilirubin 9.7 H AST 142 H Tumor Marker AFP CA 15-3 Antigen CA 19-9 Antigen CA 125 ([facility]) COVID- PCR Hepatitis A IgM Ab Non-Reactive Hep Bs Antigen Non-Reactive Hep B Core IgM Ab Non-Reactive Hepatitis C Antibody Non-Reactive 03/29/20 11:46 WBC Potassium 2.7 L* Total Bilirubin AST Tumor Marker AFP CA 15-3 Antigen CA 19-9 Antigen CA 125 ([facility]) COVID-19 PCR Hepatitis A IgM Ab Hep Bs Antigen Hep B Core IgM Ab Hepatitis C Antibody Radiology Reviewed by me: Yes (Pelvic MRI - L adnexa with pedunculated fibroid, mod ascites) Hospitalist ROS - Medication Medications: Active Medications Generic Name Dose Route Start Last Admin Trade Name Freq PRN Reason Stop Dose Admin Hydrocodone Bitart/Acetaminophen 1 tab 03/28/20 15:38 03/31/20 06:36 [place] 10/325 PO 1 tab Q4H PRN Administration Breakthrough Pain Clotrimazole 0 gm 03/30/20 21:00 03/30/20 20:44 Lotrimin 1% Cream TOP 1 applic HS SHUKRI Administration Famotidine 20 mg 03/28/20 21:00 03/31/20 08:45 Pepcid PO 20 mg BID SHUKRI Administration Sodium Chloride 1,000 mls @ 75 mls/hr 03/29/20 17:00 03/31/20 08:58 Normal Saline 0.9% IV Not Given .[id number] SHUKRI Ceftriaxone Sodium 2 gm/ 100 mls @ 200 mls/hr 03/30/20 12:00 03/30/20 12:41 Sodium Chloride IVPB 100 mls 1200 SHUKRI Administration Metoprolol Tartrate 50 mg 03/29/20 09:00 03/31/20 08:48 Lopressor PO 50 mg DAILY SHUKRI Administration Ondansetron HCl 4 mg 03/28/20 09:42 03/30/20 20:43 Zofran Odt PO 4 mg Q6H PRN Administration Nausea/Vomiting Oxycodone HCl 10 mg 03/28/20 21:00 03/31/20 08:46 Oxycontin PO 10 mg Q12HR SHUKRI Administration Pantoprazole Sodium 40 mg 03/29/20 09:00 03/31/20 08:48 Protonix PO 40 mg DAILY SHUKRI Administration Senna/Docusate Sodium 1 tab 03/28/20 21:00 03/31/20 08:58 Senokot S PO Not Given BID SHUKRI Sertraline HCl 50 mg 03/29/20 09:00 03/31/20 08:45 Zoloft PO 50 mg DAILY SHUKRI Administration Sodium Chloride 10 ml 03/28/20 09:00 03/31/20 08:58 Flush - Normal Saline IVF Not Given Q12HR SHUKRI - Exam General Appearance: NAD, awake alert Eye: PERRL, scleral icterus ENT: normocephalic atraumatic, no oropharyngeal lesions Neck: supple, symmetric, no JVD, no thyromegaly, no lymphadenopathy Heart: RRR, no murmur, no gallops, no rubs, normal peripheral pulses Heart - other findings: S1, S2 Respiratory: CTAB, no wheezes, no rales, no ronchi, normal chest expansion Gastrointestinal: normal bowel sounds, no guarding, distended Gastrointestinal - other findings: distended, mild TTP Extremities: no cyanosis, no clubbing, no edema Skin: normal turgor, no lesions Neurological: cranial nerve grossly intact, no new deficit Musculoskeletal: normal tone, generalized weakness Psychiatric: normal affect, A&O x 3 Hosp A/P (1) Adnexal mass Code(s): N94.89 - OTH COND ASSOC W FEMALE GENITAL ORGANS AND MENSTRUAL CYCLE Status: Acute Plan: L adnexal mass with associated pedunculated fibroid, plan for outpt ADVERTISER Onc referral for further evaluation (2) Hepatic steatosis Code(s): K76.0 - FATTY (CHANGE OF) LIVER, NOT ELSEWHERE CLASSIFIED Status: Chronic Plan: Severe fatty liver disease and no evidence of ascending cholangitis, outpt follow up with GI for surveillance (3) Uterine fibroid Code(s): D25.9 - LEIOMYOMA OF UTERUS, UNSPECIFIED Status: Chronic Plan: Multiple fibroids and likely L adnexa with pedunculated fibroid (4) Ascites Code(s): R18.8 - OTHER ASCITES Status: Acute Qualifiers: Ascites type: other type Qualified Code(s): R18.8 - Other ascites Plan: US guided paracentesis today (5) E. coli UTI Code(s): N39.0 - URINARY TRACT INFECTION, SITE NOT SPECIFIED; B96.20 - UNSP ESCHERICHIA COLI THE CAUSE OF DISEASES CLASSD ELSWHR Status: Acute Plan: Continue Rocephin IV (6) HTN (hypertension) Code(s): I10 - ESSENTIAL (PRIMARY) HYPERTENSION Status: Chronic Qualifiers: Hypertension type: essential hypertension Qualified Code(s): I10 - Essential (primary) hypertension Plan: Continue Losartan/Metoprolol, serial BP monitoring (7) Hyponatremia Code(s): E87.1 - HYPO-OSMOLALITY AND HYPONATREMIA Status: Acute Plan: Multifactorial including liver dz and decreased po intake, serial monitoring - Plan continue antibiotics, social service director, out of bed/ambulate, DVT proph w/SCDs Stable currently Plan for US guided paracentesis today OOB/ambulate Continue Rocephin Saline lock IVF's Check B12/Folate AM lab: CMP, CBC
[2020-03-31] MEDS: cefTRIAXone\\ROCEPHIN 2 GM in Sodium Chloride 0.9% 100 ML IVPB SCH (11:27)
[2020-03-31] MEDS ORDERED: Folic Acid 1 MG TAB PO SCH (13:30)
[2020-03-31] MEDS ORDERED: Lidocaine 1% PF 5 ML VIAL ONE (15:26)
[2020-03-31] MEDS ORDERED: Sodium Bicarbonate 2.5 MEQ/5 ML VIAL ONE (15:26)
--- NOTE | 2020-03-31 16:02 | ULT ---
Exam: Ultrasound guided diagnostic paracentesis HISTORY: Ascites COMPARISON: MR the pelvis dated March 29, 2020 FINDINGS: Successful ultrasound-guided diagnostic paracentesis. Total of 40 cc of normal appearingasc ites was aspirated. TECHNIQUE: Consent obtained reformatory ultrasound-guided paracentesis. Right upper quadrantwas deeme d appropriate. Skin was prepped and draped in a sterile fashion. 1% lidocaine, buffered with sodium bicarbonate was used for local anesthesia. Under ultrasound guidance, a 5 [place] 7 cm [place] catheter i s advanced in the peritoneal space. A total of 40 cc of normal appearingascites was aspirated. No immediate or postprocedural complications IMPRESSION: Successful ultrasound-guided diagnostic paracentesis.
[2020-03-31 17:49] LABS: BF Color Yellow; Body Fluid Source Ascites Body Fluid; Clarity Hazy (Clear); Tube # EDTA
[2020-03-31 17:50] LABS: BF RBC Count - Manual 52 /cu.mm; BF WBC/Nonhematics Ct.-Manual 69 /cu.mm
[2020-03-31 18:12] LABS: BF Segmented Neutrophils 15 %; Cell Count Non Hematic 53 %; Lymphocytes 32 %
--- NOTE | 2020-03-31 20:28 | PRG ---
DATE OF SERVICE: 03/31/2020 SUBJECTIVE: This is a 49-year-old , hospitalized with abdominal bloating, abdominal distention, and abdominal pain. She was found to have abnormal LFTs on admission and was sent for an abdominal sonogram. The sonogram showed fatty liver. Otherwise, exam was normal. Subsequently had abdominal CAT scan and MRI. MRI shows normal common bile duct. No intrahepatic filling defects seen. The patient's liver function is consistent with alcoholic liver disease-alcoholic hepatitis. Her MCV is very high at 115 to 117 indicative of probably chronic alcohol intake. The patient had abdominal CAT scan and pelvic CAT scan revealing a left adnexal mass and fibroid uterus. Gynecology Services. Plan is being made to refer to outpatient center for possible hysterectomy and biopsy of the left adnexal mass. The patient is on pain medication and she is comfortable. No nausea, no vomiting. The patient underwent diagnostic paracentesis today and is also pending at the present time. Only 40 mL of fluid aspirated. OBJECTIVE: GENERAL: Appears comfortable, in no acute distress. VITAL SIGNS: Afebrile, pulse is 99, blood pressure 130/83. She is icteric. NECK: Supple. CARDIOVASCULAR: Normal heart sounds. LUNGS: Clear to auscultation. ABDOMEN: Soft and mildly distended. Abdomen is mildly tender more diffusely. She has no rebound or guarding. She has a large liver. LABORATORY DATA: Nothing was drawn today except for the vitamin B12, which is normal at 1300, folate is slightly low at 3.20. RECOMMENDATIONS: 1. Folic acid supplement. 2. Avoid paracentesis of the throat and see whether she has any in the fluid. I believe she [facility], possible hysterectomy. Job ID: [id number]
[2020-03-31] MEDS: Clotrimazole 1 % Cream 30 GM TUBE TOP SCH (20:51)
[2020-04-01 06:49] LABS: ALT (SGPT) 90 U/L (8-55); AST (SGOT) 145 U/L (5-34); Albumin 2.3 g/dL (3.5-5.0); Alkaline Phosphatase 308 U/L (40-110); Anion Gap 15 mmol/L (10-20); BUN (Urea Nitrogen) 11 mg/dL (7.0-18.7); Bilirubin, Total 6.9 mg/dL (0.2-1.2); Calc. Creatinine Clearance 153 mL/min (70-130); Calcium 7.7 mg/dL (7.8-10.44); Carbon Dioxide 25 mmol/L (22-29); Chloride 99 mmol/L (98-107); Estimated GFR-MDRD Greater than 90; Globulin 3.4 g/dL (2.4-3.5); Glucose 90 mg/dL (70-105); Potassium 3.5 mmol/L (3.5-5.1); Protein, Total 5.7 g/dL (6.0-8.3); Sodium 135 mmol/L (136-145)
[2020-04-01 07:52] LABS: Band 9 % (5-11); Eosinophils 2 % (0-10); Hemoglobin 10.1 g/dL (12.0-16.0); Lymphocytes 14 % (21-51); MDiff Complete? YES; Macrocytosis MODERATE=16-30 cells (100X) (0-5/hpf); Mean Platelet Volume 8.6 fL (7.4-10.4); Monocytes 8 % (0-10); Neutrophil 67 % (42-75); Platelet Count 159 thou/uL (130-400); Platelet Morphology Comment Appears Adequate; Polychromasia MODERATE = 3-4 cells (100X) (0-2/hpf); RBC Distribution Width 16.7 % (11.5-14.5); Red Blood Cell (RBC) Count 2.71 mill/uL (4.20-5.40); Target Cells SLIGHT = 2-5 cells (100X) (0-1/hpf); White Blood Cell (WBC) Count 17.8 thou/uL (4.8-10.8)
[2020-04-01] MEDS: Bisacodyl 10 MG SUPP PR SCH ×2 (09:32→16:39)
[2020-04-01] MEDS: oxyCODONE ER 10 MG TAB PO SCH ×2 (09:32→20:44)
[2020-04-01] MEDS: Folic Acid 1 MG TAB PO SCH (09:35)
[2020-04-01] MEDS: Famotidine 20 MG TAB PO SCH ×2 (09:37→20:44)
[2020-04-01] MEDS: Metoprolol Tartrate 50 MG TAB PO SCH (09:37)
[2020-04-01] MEDS: Senokot S 8.6-50 MG TAB PO SCH ×2 (09:40→20:44)
[2020-04-01] MEDS: HYDROcodone/Acetaminophen 10/325 mg Tablet PO PRN ×2 (11:52→23:00)
[2020-04-01] MEDS: cefTRIAXone\\ROCEPHIN 2 GM in Sodium Chloride 0.9% 100 ML IVPB SCH (11:53)
--- NOTE | 2020-04-01 13:37 | PDOC.HOSPP ---
- Subjective Encounter Date: 04/01/20 Encounter Time: 13:30 Subjective: f/u for abd pain, ascites and hepatic steatosis with L adnexal mass. s/p paracentesis with final cx and pathology/cytology pending. Still with abd discomfort improved with current pain meds. No BM in about a week. - Objective Vital Signs & Weight: Vital Signs (12 hours) Temp Pulse Resp BP Pulse Ox 04/01/20 07:32 98.5 F 96 20 129/83 99 04/01/20 05:20 98.2 F 92 20 118/77 98 Weight Admit Weight 159 lb Weight 159 lb 9.6 oz I&O: 03/31/20 04/01/20 04/02/20 06:59 06:59 06:59 Intake Total 2200 1330 Output Total 600 Balance 1600 1330 Result Diagrams: 04/01/20 05:47 04/01/20 05:47 Additional Labs: Accuchecks 03/31/20 20:03 POC Glucose 124 H Microbiology 03/31/20 15:50 Ascites Fluid Body Fluid Culture - Preliminary 03/29/20 19:00 Urine clean catch Urine Culture - Preliminary Escherichia coli Laboratory Tests 03/28/20 03/28/20 03/28/20 04:25 05:29 06:30 WBC 28.8 H Potassium Total Bilirubin 11.4 H AST 165 H Tumor Marker AFP CA 15-3 Antigen CA 19-9 Antigen CA 125 ([facility]) ID- PCR Not Detected Hepatitis A IgM Ab Hep Bs Antigen Hep B Core IgM Ab Hepatitis C Antibody 03/28/20 03/28/20 03/28/20 10:09 10:10 10:10 WBC Potassium Total Bilirubin AST Tumor Marker AFP 3.6 CA 15-3 Antigen 81.1 H CA 19-9 Antigen 1580 H CA 125 ([facility]) 3413.1 H 3417.0 H COVID-19 PCR Hepatitis A IgM Ab Hep Bs Antigen Hep B Core IgM Ab Hepatitis C Antibody 03/28/20 03/29/20 03/29/20 10:10 06:19 06:19 WBC 20.7 H Potassium 2.5 L* Total Bilirubin 9.7 H AST 142 H Tumor Marker AFP CA 15-3 Antigen CA 19-9 Antigen CA 125 ([facility]) COVID-19 PCR Hepatitis A IgM Ab Non-Reactive Hep Bs Antigen Non-Reactive Hep B Core IgM Ab Non-Reactive Hepatitis C Antibody Non-Reactive 03/29/20 11:46 WBC Potassium 2.7 L* Total Bilirubin AST Tumor Marker AFP CA 15-3 Antigen CA 19-9 Antigen CA 125 ([facility]) COVID-19 PCR Hepatitis A IgM Ab Hep Bs Antigen Hep B Core IgM Ab Hepatitis C Antibody Hospitalist ROS - Medication Medications: Active Medications Generic Name Dose Route Start Last Admin Trade Name Freq PRN Reason Stop Dose Admin Hydrocodone Bitart/Acetaminophen 1 tab 03/28/20 15:38 04/01/20 11:52 [place] 10/325 PO 1 tab Q4H PRN Administration Breakthrough Pain Bisacodyl 10 mg 04/01/20 09:00 04/01/20 09:32 Dulcolax NE Not Given Q8H SHUKRI Clotrimazole 0 gm 03/30/20 21:00 03/31/20 20:51 Lotrimin 1% Cream TOP 1 applic HS SHUKRI Administration Famotidine 20 mg 03/28/20 21:00 04/01/20 09:37 Pepcid PO Not Given BID SHUKRI Folic Acid 1 mg 04/01/20 09:00 04/01/20 09:35 Folvite PO 1 mg DAILY SHUKRI Administration Ceftriaxone Sodium 2 gm/ 100 mls @ 200 mls/hr 03/30/20 12:00 04/01/20 11:53 Sodium Chloride IVPB 100 mls 1200 SHUKRI Administration Metoprolol Tartrate 50 mg 03/29/20 09:00 04/01/20 09:37 Lopressor PO 50 mg DAILY SHUKRI Administration Ondansetron HCl 4 mg 03/28/20 09:42 03/30/20 20:43 Zofran Odt PO 4 mg Q6H PRN Administration Nausea/Vomiting Oxycodone HCl 10 mg 03/28/20 21:00 04/01/20 09:32 Oxycontin PO 10 mg Q12HR SHUKRI Administration Pantoprazole Sodium 40 mg 03/29/20 09:00 04/01/20 09:36 Protonix PO 40 mg DAILY SHUKRI Administration Senna/Docusate Sodium 1 tab 03/28/20 21:00 04/01/20 09:40 Senokot S PO Not Given BID SHUKRI Sertraline HCl 50 mg 03/29/20 09:00 04/01/20 09:35 Zoloft PO 50 mg DAILY SHUKRI Administration Sodium Chloride 10 ml 07/24/20 09:00 04/01/20 09:41 Flush - Normal Saline IVF 10 ml Q12HR SHUKRI Administration - Exam General Appearance: NAD, awake alert Eye: PERRL, anicteric sclera ENT: normocephalic atraumatic, no oropharyngeal lesions Neck: supple, symmetric, no JVD, no thyromegaly Heart: RRR, no murmur, no gallops, no rubs, normal peripheral pulses Heart - other findings: S1, S2 Respiratory: CTAB, no wheezes, no rales, no ronchi Gastrointestinal: normal bowel sounds, no palpable masses, tender to palpation, distended Extremities: no cyanosis, no clubbing, no edema Skin: normal turgor, no lesions Neurological: cranial nerve grossly intact, no new deficit Musculoskeletal: normal tone, generalized weakness Psychiatric: normal affect, A&O x 3 Hosp A/P (1) Adnexal mass Code(s): N94.89 - OTH COND ASSOC W FEMALE GENITAL ORGANS AND MENSTRUAL CYCLE Status: Acute Plan: Etiology unclear, likely will need tissue bx for definitive diagnosis (2) Hepatic steatosis Code(s): K76.0 - FATTY (CHANGE OF) LIVER, NOT ELSEWHERE CLASSIFIED Status: Chronic Plan: custodial mgmt with outpt GI follow up (3) Uterine fibroid Code(s): D25.9 - LEIOMYOMA OF UTERUS, UNSPECIFIED Status: Chronic (4) Ascites Code(s): R18.8 - OTHER ASCITES Status: Acute Qualifiers: Ascites type: other type Qualified Code(s): R18.8 - Other ascites (5) E. coli UTI Code(s): N39.0 - URINARY TRACT INFECTION, SITE NOT SPECIFIED; B96.20 - UNSP ESCHERICHIA COLI THE CAUSE OF DISEASES CLASSD ELSWHR Status: Acute Plan: Continue Rocephin (6) HTN (hypertension) Code(s): I10 - ESSENTIAL (PRIMARY) HYPERTENSION Status: Chronic Qualifiers: Hypertension type: essential hypertension Qualified Code(s): I10 - Essential (primary) hypertension (7) Hyponatremia Code(s): E87.1 - HYPO-OSMOLALITY AND HYPONATREMIA Status: Acute - Plan continue antibiotics, nephrology social worker, out of bed/ambulate, DVT proph w/SCDs Stable currently Await paracentesis fluid evaluation/cytology OOB/ambulate Continue Rocephin Saline lock IVF's Consider [facility] referral for tissue bx of L adnexal mass Bowel regimen with Mag citrate/Senokot-S/Dulcolax AM lab: CBC
[2020-04-01] MEDS ORDERED: Magnesium Citrate 300 ML BOT PO SCH (14:30)
[2020-04-01] MEDS: Magnesium Citrate 300 ML BOT PO SCH ×2 (14:40→14:41)
[2020-04-01] MEDS: Clotrimazole 1 % Cream 30 GM TUBE TOP SCH (20:46)
[2020-04-01] MEDS: Ondansetron ODT 4 MG TAB PO PRN (23:01)
[2020-04-02] MEDS: Bisacodyl 10 MG SUPP PR SCH ×3 (00:37→18:42)
[2020-04-02 06:13] LABS: Band 3 % (5-11); Eosinophils 1 % (0-10); Hemoglobin 10.5 g/dL (12.0-16.0); Hypochromia SLIGHT = 6-15 cells (100X) (0-5/hpf); Lymphocytes 3 % (21-51); MDiff Complete? YES; Macrocytosis SLIGHT = 6-15 cells (100X) (0-5/hpf); Mean Corpuscular HGB CONC 30.1 g/dL (32.0-36.0); Mean Corpuscular Hemoglobin 36.1 pg (27.0-31.0); Mean Platelet Volume 8.6 fL (7.4-10.4); Metamyelocyte 2 % (0-0); Monocytes 14 % (0-10); Neutrophil 77 % (42-75); Platelet Count 174 thou/uL (130-400); Platelet Morphology Comment Appears Adequate; RBC Distribution Width 16.7 % (11.5-14.5); White Blood Cell (WBC) Count 21.9 thou/uL (4.8-10.8)
[2020-04-02] MEDS: Folic Acid 1 MG TAB PO SCH (08:53)
[2020-04-02] MEDS: Metoprolol Tartrate 50 MG TAB PO SCH (08:54)
[2020-04-02] MEDS: oxyCODONE ER 10 MG TAB PO SCH ×2 (08:54→20:10)
[2020-04-02] MEDS: Losartan 25 MG TAB PO SCH (08:55)
[2020-04-02] MEDS: Famotidine 20 MG TAB PO SCH ×2 (08:57→20:12)
[2020-04-02] MEDS: Senokot S 8.6-50 MG TAB PO SCH ×2 (08:58→20:12)
--- NOTE | 2020-04-02 09:59 | PDOC.MOPN ---
Interval History: complains of abdominal pain. - Vital Signs Vital Signs: Vital Signs (12 hours) Temp Pulse Resp BP Pulse Ox 04/02/20 07:34 98.5 F 86 16 126/82 98 04/02/20 00:18 98.2 F 86 20 127/83 97 Weight Admit Weight 159 lb Weight 159 lb 9.6 oz - Physical Exam HEENT: Atraumatic, PERRLA, EOMI, Mucous membr. moist/pink Lungs: Clear to auscultation, Normal air movement Abdomen: Other (distended) Neurological: Normal speech Psych/Mental Status: Mental status NL - Labs Result Diagrams: 04/02/20 05:22 04/01/20 05:47 Lab results: Laboratory Results - last 24 hr 04/02/20 05:22: WBC 21.9 H, RBC 2.90 L, Hgb 10.5 L, Hct 34.7 L, MCV 120.0 H, MCH 36.1 H, MCHC 30.1 L, RDW 16.7 H, Plt Count 174, MPV 8.6, Neutrophils % ( Manual) 77 H, Band Neuts % (Manual) 3 L, Lymphocytes % (Manual) 3 L, Monocytes % (Manual) 14 H, Eosinophils % (Manual) 1, Metamyelocytes % (Man) 2 H, Hypochromia SLIGHT = 6-15 cells, Plt Morphology Comment Appears Adequate, Macrocytosis SLIGHT = 6-15 cells 03/31/20 15:50: Fluid Diff Path Review Status: lab reviewed by me A/P - Problem (1) Adnexal mass Current Visit: Yes Code(s): N94.89 - OTH COND ASSOC W FEMALE GENITAL ORGANS AND MENSTRUAL CYCLE Status: Acute (2) Ascites Current Visit: Yes Code(s): R18.8 - OTHER ASCITES Status: Acute Qualifiers: Ascites type: other type Qualified Code(s): R18.8 - Other ascites - Plan Plan: patient needs follow-up with [facility] for adnexal mass spoke with porter sample case about in network providers as patient has medicaid. likely will need referral to [facility] from primary care. cytology pending from ascitic fluid.
[2020-04-02] MEDS: Ondansetron ODT 4 MG TAB PO PRN (11:01)
[2020-04-02] MEDS: cefTRIAXone\\ROCEPHIN 2 GM in Sodium Chloride 0.9% 100 ML IVPB SCH (11:01)
[2020-04-02] MEDS: HYDROcodone/Acetaminophen 10/325 mg Tablet PO PRN (11:02)
--- NOTE | 2020-04-02 12:04 | PDOC.HOSPP ---
- Subjective Encounter Date: 04/02/20 Encounter Time: 09:10 Subjective: Patient seen and examined. No new complaints. No overnight events - Objective Vital Signs & Weight: Vital Signs (12 hours) Temp Pulse Resp BP Pulse Ox 04/02/20 08:00 98 04/02/20 07:34 98.5 F 86 16 126/82 98 04/02/20 00:18 98.2 F 86 20 127/83 97 Weight Admit Weight 159 lb Weight 159 lb 9.6 oz I&O: 04/01/20 04/02/20 04/03/20 06:59 06:59 06:59 Intake Total 1330 480 660 Output Total 600 2 Balance 1330 -120 658 Result Diagrams: 04/02/20 05:22 04/01/20 05:47 Radiology Reviewed by me: Yes EKG Reviewed by me: Yes Hospitalist ROS - Review of Systems ENT: denies: ear pain, ear discharge, nose pain, nose discharge, nose congestion , mouth pain, mouth swelling, throat pain, throat swelling, other Respiratory: denies: cough, dry, shortness of breath, hemoptysis, SOB with excertion, pleuritic pain, sputum, wheezing, other Cardiovascular: denies: chest pain, palpitations, orthopnea, paroxysmal noc. dyspnea, edema, light headedness, other Gastrointestinal: denies: nausea, vomiting, abdominal pain, diarrhea, constipation, melena, hematochezia, other Genitourinary: denies: dysuria, frequency, incontinence, hematuria, retention, other Musculoskeletal: denies: neck pain, shoulder pain, arm pain, back pain, hand pain, leg pain, foot pain, other - Medication Medications: Active Medications Generic Name Dose Route Start Last Admin Trade Name Freq PRN Reason Stop Dose Admin Hydrocodone Bitart/Acetaminophen 1 tab 03/28/20 15:38 04/02/20 11:02 [place] 10/325 PO 1 tab Q4H PRN Administration Breakthrough Pain Bisacodyl 10 mg 04/01/20 09:00 04/02/20 08:56 Dulcolax CO Not Given Q8H SHUKRI Clotrimazole 0 gm 03/30/20 21:00 04/01/20 20:46 Lotrimin 1% Cream TOP 1 applic HS SHUKRI Administration Famotidine 20 mg 03/28/20 21:00 04/02/20 08:57 Pepcid PO Not Given BID [facility] Folic Acid 1 mg 04/01/20 09:00 04/02/20 08:53 Folvite PO 1 mg DAILY SHUKRI Administration Ceftriaxone Sodium 2 gm/ 100 mls @ 200 mls/hr 03/30/20 12:00 04/02/20 11:01 Sodium Chloride IVPB 100 mls 1200 SHUKRI Administration Losartan Potassium 100 mg 03/29/20 09:00 04/02/20 08:55 Cozaar PO 100 mg DAILY SHUKRI Administration Metoprolol Tartrate 50 mg 03/29/20 09:00 04/02/20 08:54 Lopressor PO 50 mg DAILY SHUKRI Administration Ondansetron HCl 4 mg 03/28/20 09:42 04/02/20 11:01 Zofran Odt PO 4 mg Q6H PRN Administration Nausea/Vomiting Oxycodone HCl 10 mg 03/28/20 21:00 04/02/20 08:54 Oxycontin PO 10 mg Q12HR SHUKRI Administration Pantoprazole Sodium 40 mg 03/29/20 09:00 04/02/20 08:54 Protonix PO 40 mg DAILY SHUKRI Administration Senna/Docusate Sodium 1 tab 03/28/20 21:00 04/02/20 08:58 Senokot S PO 1 tab BID SHUKRI Administration Sertraline HCl 50 mg 03/29/20 09:00 04/02/20 08:54 Zoloft PO 50 mg DAILY SHUKRI Administration Sodium Chloride 10 ml 03/28/20 09:00 04/02/20 08:59 Flush - Normal Saline IVF 10 ml Q12HR SHUKRI Administration - Exam General Appearance: NAD, awake alert Eye: PERRL, anicteric sclera ENT: normocephalic atraumatic, no oropharyngeal lesions Neck: supple, symmetric, no JVD Heart: RRR, no murmur, no gallops, no rubs Respiratory: CTAB, no wheezes, no rales, no ronchi Gastrointestinal: soft, non-tender, non-distended, normal bowel sounds Extremities: no cyanosis, no clubbing Skin: normal turgor, no lesions Neurological: no focal deficits Musculoskeletal: normal tone, normal strength Psychiatric: normal affect, normal behavior Hosp A/P (1) Adnexal mass Code(s): N94.89 - OTH COND ASSOC W FEMALE GENITAL ORGANS AND MENSTRUAL CYCLE Status: Acute (2) Ascites Code(s): R18.8 - OTHER ASCITES Status: Acute Qualifiers: Ascites type: other type Qualified Code(s): R18.8 - Other ascites (3) HTN (hypertension) Code(s): I10 - ESSENTIAL (PRIMARY) HYPERTENSION Status: Chronic Qualifiers: Hypertension type: essential hypertension Qualified Code(s): I10 - Essential (primary) hypertension (4) Uterine fibroid Code(s): D25.9 - LEIOMYOMA OF UTERUS, UNSPECIFIED Status: Chronic (5) Folate deficiency Code(s): E53.8 - DEFICIENCY OF OTHER SPECIFIED B GROUP VITAMINS Status: Chronic (6) Macrocytic anemia Code(s): D53.9 - NUTRITIONAL ANEMIA, UNSPECIFIED Status: Chronic - Plan old records reviewed/req, clinical social work aide I spoke with oncology and they recommends that if cytology is negative then patient will need to be discharged and she will need outpatient referral Patient is going to make appointment with [facility] by herself and if she is not able to make her appointment with a [facility] oncology then she will contact her PCP or oncology to assist with that. Patient is overall medically stable for discharge and further work-up will be ongoing after discharge.
--- NOTE | 2020-04-02 13:59 | PQF ---
CLINICAL DOCUMENTATION CLARIFICATION FORM: Dear Dr. Walter BURDICK Date: 04/02/2020 [id number] Please exercise your independent, professional judgment in responding to the clarification form. Clinical indicators are provided on the bottom of this form for your review. Please check appropriate box(es): [ ] Protein Calorie Malnutrition: [ ] Mild [ ] Moderate [ ] Severe [ ] Other Malnutrition (please specify) __ [ ] Underweight without malnutrition [ ] Cachexia [ x ] Other diagnosis _No proten calory malnutrition [ ] Unable to determine In addition, please specify: Present on Admission (POA): [ ] Yes [ x ] No [ ] Unable to determine For continuity of documentation, please document condition throughout progress notes and discharge summary. Thank You. To be completed by CDI/Coding staff for physician review: CLINICAL INDICATORS - SIGNS / SYMPTOMS / LABS / RESULTS AND LOCATION IN MR 03/29 DIETARY CONSULT MALNUTRITION EVIDENCED BY: 13% WEIGHT LOSS IN 2-3 MONTHS ; ASCITES NOTED; 1+ PITTING EDEMA PRESENT SUGGESTIVE OF SEVERE MALNUTRITION IN THE CONTEXT OF ACUTE ILLNESS. RISK FACTORS / RESULTS AND LOCATION IN MR LEFT ADNEXAL MASS WITH MILD ASCITES ( DAMI/ PN 03/29) TREATMENT / RESULTS AND LOCATION IN MR Dietary consult 03/29 Recommended Ensure Enlive TID 03/29 Moderate Malnutrition (in acute illness) Energy Intake: <75% of estimated energy requirement for > 7 days Weight Loss: 1-2%/1 week; 5%/ 1 month; 7.5%/3 months Other: mild body fat loss; mild muscle mass loss; mild fluid accumulation; Severe Malnutrition (in acute illness) Energy Intake: = 50% of estimated energy requirement for = 5 days Weight Loss: >2%/1 week; >5%/1 month; >7.5%/3 months Other: moderate body fat loss; moderate muscle mass loss; moderate- severe fluid accumulation; measurably reduced cloud systems architect strength Moderate Malnutrition (in chronic illness) Energy Intake: <75% of estimated energy requirement for =1 month Weight Loss: 5%/1 month; 7.5%/3 months; 10%/6 months; 20%/1 year Other: mild body fat loss; mild muscle mass loss; mild fluid accumulation Severe Malnutrition (in chronic illness) Energy Intake: =75% of estimated energy requirement for =1 month Weight Loss: >5%/1 month; >7.5%/3 months; >10%/6 months; >20%/1 year Other: severe body fat loss; severe muscle mass loss; severe fluid accumulation; measurably reduced cloud systems architect strength THANK YOU! FABIAN RUSSELL Signature: FABIAN ZIMMERMAN RN Phone #: [phone] Date: DEANDRE
--- NOTE | 2020-04-02 15:44 | PRG ---
DATE OF SERVICE: SUBJECTIVE: This is a 49-year-old female, hospitalized with abnormal LFTs, abdominal pain, abdominal bloating and swelling. The patient had abnormal LFTs and a CAT scan and sonogram showed fatty liver. She has a left adnexal mass and also fibroid uterus. The patient had diagnostic paracentesis 2 days ago. The fluid is a transudate. The ascitic fluid cytology was negative. The patient continued to complain of abdominal bloating, abdominal swelling, and upper abdominal pain. She is tolerating diet. There is no nausea, no vomiting. OBJECTIVE: GENERAL: Appears comfortable. She is obese. VITAL SIGNS: Afebrile. Pulse is 86, blood pressure . CARDIOVASCULAR: Lungs within normal limits. ABDOMEN: Mildly distended, but soft. She is mildly tender across the abdomen. There is no rebound or guarding. IMPRESSION: 1. Alcoholic liver disease with ascites. 2. The adnexal mass is pending further evaluation. I had a long talk with Ms. Olivia Montanez and I explained to her that she should not be taking any more alcohol because of possibility of chronic liver disease. She says she only drinks 3 times a week and her quantity is not advised. However, MCV is very high except for alcohol intake, which would result in folate deficiency. I had advised to come back and see me in a month's time. I believe she should take care of her gynecologic problems first and she will come back as outpatient in the future. I will sign off from today. If you have any questions, please call me back. Job ID: [id number]
[2020-04-02] MEDS: Clotrimazole 1 % Cream 30 GM TUBE TOP SCH (20:13)
[2020-04-03] MEDS: Bisacodyl 10 MG SUPP PR SCH ×3 (02:01→16:34)
[2020-04-03] MEDS: HYDROcodone/Acetaminophen 10/325 mg Tablet PO PRN ×3 (02:32→17:10)
[2020-04-03] MEDS: oxyCODONE ER 10 MG TAB PO SCH ×2 (09:08→20:15)
[2020-04-03] MEDS: Metoprolol Tartrate 50 MG TAB PO SCH (09:08)
[2020-04-03] MEDS: Losartan 25 MG TAB PO SCH (09:08)
[2020-04-03] MEDS: Folic Acid 1 MG TAB PO SCH (09:08)
[2020-04-03] MEDS: Senokot S 8.6-50 MG TAB PO SCH ×2 (09:09→20:17)
[2020-04-03] MEDS: Famotidine 20 MG TAB PO SCH ×2 (09:11→20:16)
[2020-04-03] MEDS ORDERED: Furosemide 20 MG/2 ML VIAL SLOW IVP SCH (12:15)
[2020-04-03] MEDS: cefTRIAXone\\ROCEPHIN 2 GM in Sodium Chloride 0.9% 100 ML IVPB SCH (13:15)
--- NOTE | 2020-04-03 13:19 | ULT ---
Ultrasound abdomen limited: 04/03/2020 HISTORY: 49-year-old female with abdominal distention. TECHNIQUE: Four-quadrant survey of abdomen. FINDINGS: There is a small amount of free fluid in each quadrant. IMPRESSION: Small volume of ascites.
--- NOTE | 2020-04-03 16:17 | PDOC.FMACP ---
Advance Care Planning - Problem (1) Palliative care encounter Status: Acute Code(s): Z51.5 - ENCOUNTER FOR PALLIATIVE CARE (2) Adnexal mass Status: Acute Code(s): N94.89 - OTH COND ASSOC W FEMALE GENITAL ORGANS AND MENSTRUAL CYCLE (3) Ascites Status: Acute Code(s): R18.8 - OTHER ASCITES Qualifiers: Ascites type: other type Qualified Code(s): R18.8 - Other ascites (4) HTN (hypertension) Status: Chronic Code(s): I10 - ESSENTIAL (PRIMARY) HYPERTENSION Qualifiers: Hypertension type: essential hypertension Qualified Code(s): I10 - Essential (primary) hypertension (5) Macrocytic anemia Status: Chronic Code(s): D53.9 - NUTRITIONAL ANEMIA, UNSPECIFIED - Note Participants: patient, palliative care Summary: Palliative Care introduced Advanced Care Planning, allowed an opportunity to decline. The diagnosis, prognosis and goals of care were discussed. Appropriate forms and documentation to accomplish the goals of care were discussed. All questions were answered. Ms Montanez elected to complete a MPOA. Original and copy was given to patient as well as copy placed on the chart. Directive to physician left for patient to review. The Palliative Care Team will continue to assist with completion of any outstanding forms as identified. Please also refer to Darnell Lawson notes in note section. Time Spent (mins): 20
--- NOTE | 2020-04-03 17:30 | PDOC.HOSPP ---
- Subjective Encounter Date: 04/03/20 Encounter Time: 11:55 Subjective: pt up in bed has multiple complains. She feels nauseated, abdomen pain, mild diarrhea. - Objective Vital Signs & Weight: Vital Signs (12 hours) Temp Pulse Resp BP Pulse Ox 04/03/20 08:00 98.5 F 86 18 142/88 H 97 Weight Admit Weight 159 lb Weight 159 lb 9.6 oz I&O: 04/02/20 04/03/20 04/04/20 06:59 06:59 06:59 Intake Total 480 660 Output Total 600 2 Balance -120 658 Result Diagrams: 04/02/20 05:22 04/01/20 05:47 Hospitalist ROS - Review of Systems Respiratory: denies: cough, dry, shortness of breath, hemoptysis, SOB with excertion, pleuritic pain, sputum, wheezing, other Cardiovascular: denies: chest pain, palpitations, orthopnea, paroxysmal noc. dyspnea, edema, light headedness, other Gastrointestinal: reports: vomiting, abdominal pain Genitourinary: denies: dysuria, frequency, incontinence, hematuria, retention, other Musculoskeletal: denies: neck pain, shoulder pain, arm pain, back pain, hand pain, leg pain, foot pain, other - Medication Medications: Active Medications Generic Name Dose Route Start Last Admin Trade Name Freq PRN Reason Stop Dose Admin Hydrocodone Bitart/Acetaminophen 1 tab 03/28/20 15:38 04/03/20 17:10 [place] 10/325 PO 1 tab Q4H PRN Administration Breakthrough Pain Bisacodyl 10 mg 04/01/20 09:00 04/03/20 16:34 Dulcolax NE Not Given Q8H SHUKRI Clotrimazole 0 gm 03/30/20 21:00 04/02/20 20:13 Lotrimin 1% Cream TOP 1 applic HS SHUKRI Administration Famotidine 20 mg 03/28/20 21:00 04/03/20 09:11 Pepcid PO Not Given BID SHUKRI Folic Acid 1 mg 04/01/20 09:00 04/03/20 09:08 Folvite PO 1 mg DAILY SHUKRI Administration Ceftriaxone Sodium 2 gm/ 100 mls @ 200 mls/hr 03/30/20 12:00 04/03/20 13:15 Sodium Chloride IVPB 100 mls 1200 SHUKRI Administration Losartan Potassium 100 mg 03/29/20 09:00 04/03/20 09:08 Cozaar PO 100 mg DAILY SHUKRI Administration Metoprolol Tartrate 50 mg 03/29/20 09:00 04/03/20 09:08 Lopressor PO 50 mg DAILY SHUKRI Administration Ondansetron HCl 4 mg 03/28/20 09:42 04/02/20 11:01 Zofran Odt PO 4 mg Q6H PRN Administration Nausea/Vomiting Oxycodone HCl 10 mg 03/28/20 21:00 04/03/20 09:08 Oxycontin PO 10 mg Q12HR SHUKRI Administration Pantoprazole Sodium 40 mg 03/29/20 09:00 04/03/20 09:08 Protonix PO 40 mg DAILY SHUKRI Administration Senna/Docusate Sodium 1 tab 03/28/20 21:00 04/03/20 09:09 Senokot S PO 1 tab BID SHUKRI Administration Sertraline HCl 50 mg 03/29/20 09:00 04/03/20 09:08 Zoloft PO 50 mg DAILY SHUKRI Administration Sodium Chloride 10 ml 03/28/20 09:00 04/03/20 09:11 Flush - Normal Saline IVF 10 ml Q12HR SHUKRI Administration - Exam Eye: scleral icterus Neck: negative: supple, symmetric, no JVD, no thyromegaly, no lymphadenopathy, no carotid bruit, JVD Heart: negative: RRR, no murmur, no gallops, no rubs, normal peripheral pulses, irregular, diminshed peripheral pulses, murmur present, II/IV, III/IV Respiratory: negative: CTAB, no wheezes, no rales, no ronchi, normal chest expansion, no tachypnea, normal percussion, rales, rhonchi, tachypneic, wheezes Gastrointestinal: soft, normal bowel sounds Gastrointestinal - other findings: significant abdomen distention, distended veins Extremities: 2+ LE edema Hosp A/P (1) UTI (urinary tract infection) Status: Acute (2) Elevated LFTs Code(s): R79.89 - OTHER SPECIFIED ABNORMAL FINDINGS OF BLOOD CHEMISTRY Status : Acute (3) Ascites Code(s): R18.8 - OTHER ASCITES Status: Acute Qualifiers: Ascites type: other type Qualified Code(s): R18.8 - Other ascites (4) Hyponatremia Code(s): E87.1 - HYPO-OSMOLALITY AND HYPONATREMIA Status: Acute (5) Alcoholic liver disease Code(s): K70.9 - ALCOHOLIC LIVER DISEASE, UNSPECIFIED Status: Acute - Plan pt continues to have a elevated wbc, urine cx indicates ecoli she is on abx. ascites fluid no sbp noted predominant lymphocytes. spoke with pt and pt's sister about her disease and explained in details about her plan. will check abdomen ultrasound and see if any drainable fluid. will give her Lasix. will put her on spironolactone. spoke with nursing staff she was constipated and was given laxative. pt denied drinking alcohol, however her AST is greater than her ALT.
[2020-04-03] MEDS: Clotrimazole 1 % Cream 30 GM TUBE TOP SCH (20:21)
[2020-04-04] MEDS: Bisacodyl 10 MG SUPP PR SCH ×2 (00:32→08:12)
[2020-04-04 06:54] LABS: ALT (SGPT) 80 U/L (8-55); AST (SGOT) 105 U/L (5-34); Albumin 2.2 g/dL (3.5-5.0); Alkaline Phosphatase 295 U/L (40-110); Anion Gap 11 mmol/L (10-20); BUN (Urea Nitrogen) 9 mg/dL (7.0-18.7); Bilirubin, Total 6.1 mg/dL (0.2-1.2); Calc. Creatinine Clearance 120 mL/min (70-130); Calcium 7.6 mg/dL (7.8-10.44); Carbon Dioxide 29 mmol/L (22-29); Chloride 99 mmol/L (98-107); Estimated GFR-MDRD Greater than 90; Globulin 3.6 g/dL (2.4-3.5); Glucose 110 mg/dL (70-105); Potassium 3.2 mmol/L (3.5-5.1); Protein, Total 5.8 g/dL (6.0-8.3); Sodium 136 mmol/L (136-145)
[2020-04-04 07:00] LABS: Band 7 % (5-11); Eosinophils 3 % (0-10); Hemoglobin 11.3 g/dL (12.0-16.0); Lymphocytes 7 % (21-51); MDiff Complete? YES; Macrocytosis MODERATE=16-30 cells (100X) (0-5/hpf); Mean Corpuscular Hemoglobin 36.8 pg (27.0-31.0); Mean Platelet Volume 8.5 fL (7.4-10.4); Metamyelocyte 1 % (0-0); Monocytes 5 % (0-10); Myelocyte 1 % (0-0); Neutrophil 76 % (42-75); Platelet Count 176 thou/uL (130-400); Platelet Morphology Comment Appears Adequate; Red Blood Cell (RBC) Count 3.07 mill/uL (4.20-5.40); White Blood Cell (WBC) Count 18.8 thou/uL (4.8-10.8)
[2020-04-04 07:15] VITALS: BP 133/84; TEMP 98.2
[2020-04-04] MEDS ORDERED: Spironolactone 25 MG TAB PO SCH (08:00)
[2020-04-04] MEDS: Metoprolol Tartrate 50 MG TAB PO SCH (08:10)
[2020-04-04] MEDS: Famotidine 20 MG TAB PO SCH (08:10)
[2020-04-04] MEDS: Senokot S 8.6-50 MG TAB PO SCH (08:10)
[2020-04-04] MEDS: Losartan 25 MG TAB PO SCH (08:10)
[2020-04-04] MEDS: Folic Acid 1 MG TAB PO SCH (08:11)
[2020-04-04] MEDS: oxyCODONE ER 10 MG TAB PO SCH (08:11)
[2020-04-04] MEDS ORDERED: Furosemide 20 MG/2 ML VIAL SLOW IVP SCH (09:00)
[2020-04-04] MEDS: Ondansetron ODT 4 MG TAB PO PRN ×2 (09:51→13:22)
[2020-04-04] MEDS: cefTRIAXone\\ROCEPHIN 2 GM in Sodium Chloride 0.9% 100 ML IVPB SCH (12:59)
--- NOTE | 2020-04-05 03:50 | DIS ---
DATE OF ADMISSION: 03/28/2020 DATE OF DISCHARGE: 04/04/2020 DISCHARGE DIAGNOSES: As of the followin. Urinary tract infection. 2. Elevated liver function tests. 3. Ascites. 4. Hyponatremia. 5. Alcoholic liver disease. 6. Uterine fibroid. 7. Adnexal mass. 8. Elevated CA-125. HOSPITAL COURSE: The patient is a 49-year-old female, who initially presented to the hospital on 03/28 with complaints of abdominal pain and distention. The patient at that time was found to have ascites. Her CT of abdomen and pelvis indicated 6.2 cm left adnexal mass. She also had intraabdominal ascites and hepatomegaly with heterogeneous low-density, could represent acute hepatitis with edema versus mild intrahepatic masses versus hepatic steatosis. She also had a uterine mass, which most likely was consistent with a fibroid. Given this finding, Oncology was consulted and so was PERINATOLOGY PHYSICIAN. The patient underwent an abdominal MRI, which indicated enlarged fatty liver and trace ascites. She then had an abdominal ultrasound, which indicated hepatomegaly with fatty liver, splenomegaly and ascites. When she had her pelvic MRI, it indicated multi fibroid uterus, also multiple nabothian cysts and she had a left adnexal lesion with large pedunculated subserosal fibroid. At this time, she was also seen by GI for her elevated LFTs. Her elevated LFTs were thought to be most likely secondary to alcoholic hepatitis. The patient had lower extremity Dopplers, which were negative for DVT. The patient was seen by PERINATOLOGY PHYSICIAN, who recommended the patient to be transferred to a LABEL DESIGNER/ONC given her findings. She also had her ascites fluid sent for cytology, which indicated no atypia or malignant cells that was noted in her ascitic fluid. The patient had no significantly drainable ascitic fluid also. She continued also to have significant leukocytosis. Her blood cultures were negative. Her urine culture only indicated E. coli, which she was treated for appropriately. Her studies fluids were negative for any bacteria. She had no SBP that was noted per her ascitic fluid analysis. Given the fact the patient's ascitic fluid was negative for cytology, she had other studies done, which included the CA-125, CA 99 and CA-15-3. Her CA-125 was significantly high at 3417. Her CA-19-9 was 1580 and her CA-15-3 was 81, most likely consistent with some sort of underlying malignancy. The patient was not a candidate for transferring due to her insurance issues. At this time, we had recommended the patient to be discharged home to call the LABEL DESIGNER/ONC for an appointment. The patient at this time was discharged home. She will follow up with her primary and also with LABEL DESIGNER/ONC. I have relayed all of this to the patient's sister and also I did speak with the patient's sister on the day of discharge and updated her. HOME MEDICATIONS: 1. Furosemide 20 mg daily. 2. Folic acid 1 mg p.o. daily. 3. Spironolactone 25 mg daily. 4. Metoprolol 50 mg daily. 5. Losartan 100 mg daily. 6. Sertraline 50 mg daily. 7. Omeprazole 1 cap p.o. daily. 8. Also, I will start her on lactulose. PHYSICAL EXAMINATION: VITAL SIGNS: On discharge, temperature 98.2, 82, 20, 96% on room air, 133/84. GENERAL: She is awake, alert, and oriented x3. ABDOMEN: She still has significant abdominal distention. Bowel sounds are present x2. EXTREMITIES: Lower extremity edema. She was given 2 doses of Lasix IV and she will be started on oral diuretics, which she is going to be spironolactone. The patient will follow up with her primary care doctor for followup and also with her LABEL DESIGNER/ONC for further evaluation. Greater than 30 minutes was used to discharge this patient. Job ID: [id number]
--- NOTE | 2020-04-05 08:38 | DIS ---
DATE OF ADMISSION: 03/28/2020 DATE OF DISCHARGE: 04/04/2020 PRIMARY CARE PHYSICIAN: Ebony Mccormick MD DISCHARGE DISPOSITION: Home. PRIMARY DISCHARGE DIAGNOSES: 1. Folate deficiency, macrocytic anemia. 2. Ascites, under investigation, rule out gynecologic cancer. 3. Adrenal mass, rule out metastasis. 4. Abnormal liver function test due to liver mass. 5. Urinary tract infection, treated in hospital. SECONDARY DISCHARGE DIAGNOSES: 1. Hypertension. 2. Gastroesophageal reflux disease. 3. Anxiety and depression. DISCHARGE MEDICATION: 1. Clonidine 0.1 mg daily. 2. Losartan 100 mg daily. 3. Metoprolol 50 mg daily. 4. Omeprazole 40 mg daily. 5. Zoloft 50 mg daily. 6. Folic acid 1 mg p.o. daily. SIGNIFICANT LABORATORY DATA: WBC 21.9, hemoglobin 10.5, platelet 174. INR 1.4. Sodium 135, creatinine 0.52, AST 144, ALT 90, alkaline phosphatase 308, folic acid 3.20. CA-125 3417. CA 19-9 1580. CA 15-3 81. Urinalysis suggestive of UTI. Urine culture grew E coli. COVID-19 negative. Hepatitis profile negative. Ascitic fluid cytology came back negative. CONTRAINDICATION: None. CODE STATUS: Full code. INPATIENT MANAGEMENT ARCHITECT: Oncology was consulted while in hospital and they recommended that if cytology negative, then the patient will need [facility] reference as an outpatient basis for further evaluation. Gastroenterology was consulted. TEST RESULTS PENDING ON DISCHARGE: None. ALLERGIES: NO KNOWN DRUG ALLERGIES. DISCHARGE PLAN: Post hospital, the patient is instructed to make appointment with primary care physician within few days and subsequently, the patient will need referral to [facility]. RADIOLOGIST INVESTIGATION: Pelvic ultrasound showed uterine fibroid and left adnexal mass. Abdomen and pelvis CT scan showed heterogeneous liver with enlargement of liver, 6.2 cm left adnexal mass, abdominal ascites and subcutaneous edema. Abdomen MRI showed enlarged liver, trace ascites. Pelvic MRI showed multi-fibroid uterus, diverticulosis. Ultrasound negative for DVT. Paracentesis was performed. HOSPITAL COURSE: A 49-year-old female, who came to the emergency room on March 28, 2020. Please see Dr. Deleon's H and P for further detail. The patient was complaining of abdominal pain and distention. The patient was found with ascites and suspected liver mass. The patient was also found with a left adnexal mass. The patient was found with significantly abnormal tumor marker. Oncology was consulted while in hospital and they are suspecting ovarian cancer. Cytology came back negative. This patient will need debulking surgery as well as further investigation with specialist [facility] either in [place] or [place]. At this point, we do not have any further special expertise to take care of this patient and the patient is overall medically stable, and the rest of the workup can be done as an outpatient basis. The patient is in the process of getting followup appointment with [facility] in [place] or [place]. We have instructed to follow up with Oncology here in [facility] as well as primary care physician to get reference to [facility]. The patient is overall medically stable for discharge today. Job ID: [id number]
== END 2020-04-04 14:34 | disposition home or self-care (01) | DRG 433 ==
LOC: ERS 04:04 → T4-B 06:55
PROVIDERS: ADMIT Family Medicine; ATTEND Family Medicine
PROC: 0W9G3ZX Drainage of Peritoneal Cavity, Percutaneous Approach, Diagnostic (ICD-10-PCS; principal; 2020-03-31)
DX: K70.11 Alcoholic hepatitis with ascites (principal); C56.2 Malignant neoplasm of left ovary; N39.0 Urinary tract infection, site not specified; E87.1 Hypo-osmolality and hyponatremia; B96.20 Unspecified Escherichia coli [E. coli] as the cause of diseases classified elsewhere; D25.2 Subserosal leiomyoma of uterus; K70.0 Alcoholic fatty liver; G43.909 Migraine, unspecified, not intractable, without status migrainosus; F41.9 Anxiety disorder, unspecified; I10 Essential (primary) hypertension; M79.7 Fibromyalgia; E87.70 Fluid overload, unspecified; D52.9 Folate deficiency anemia, unspecified; K21.9 Gastro-esophageal reflux disease without esophagitis; F32.9 Major depressive disorder, single episode, unspecified; Z11.59 Encounter for screening for other viral diseases; Z90.49 Acquired absence of other specified parts of digestive tract; Z79.899 Other long term (current) drug therapy
CPT/HCPCS: 36415; 36416; 36600; 49083; 71045; 72197; 74177; 74183; 76856; 80048; 80053; 80074; 81001; 82105; 82150; 82248; 82607; 82746; 83615; 83690; 83880; 84157; 84484; 85007; 85025; 85027; 85060; 85610; 85730; 86300; 86301; 86304; 87070; 87077; 87086; 87186; 87205; 87635; 88112; 88305; 89051; 93005; 93970; 93975; J0696; J1940; J3490; Q0162; Q9967; U0003

== ENCOUNTER 2020-05-03 14:48 | Inpatient (IN) | payer OTHER ==
[~2020-05-03 14:48] MED LIST: Iopamidol-370 76% 500 ML 1 ML ONE
[2020-05-03] MEDS ORDERED: Morphine 4 MG/ML VIAL ONE (15:38)
[2020-05-03 15:41] LABS: Hemoglobin 11.2 g/dL (12.0-16.0); Mean Corpuscular HGB CONC 32.9 g/dL (32.0-36.0); Mean Corpuscular Hemoglobin 35.3 pg (27.0-31.0); Platelet Count 279 thou/uL (130-400); RBC Distribution Width 13.7 % (11.5-14.5); Red Blood Cell (RBC) Count 3.18 mill/uL (4.20-5.40); White Blood Cell (WBC) Count 22.6 thou/uL (4.8-10.8)
[2020-05-03 15:49] LABS: ALT (SGPT) 34 U/L (8-55); AST (SGOT) 62 U/L (5-34); Albumin 2.5 g/dL (3.5-5.0); Alkaline Phosphatase 199 U/L (40-110); Anion Gap 15 mmol/L (10-20); BUN (Urea Nitrogen) 25 mg/dL (7.0-18.7); Bilirubin, Total 7.2 mg/dL (0.2-1.2); Calc. Creatinine Clearance 0 mL/min (70-130); Carbon Dioxide 27 mmol/L (22-29); Chloride 94 mmol/L (98-107); Estimated GFR-MDRD 58; Globulin 4.3 g/dL (2.4-3.5); Glucose 159 mg/dL (70-105); Lipase 85 U/L (8-78); Protein, Total 6.8 g/dL (6.0-8.3); Sodium 134 mmol/L (136-145)
[2020-05-03 15:53] LABS: INR-International Normal Ratio 2.6; Prothrombin Time 27.6 sec (12.0-14.7)
[2020-05-03 15:55] LABS: Band 4 % (5-11); Lymphocytes 6 % (21-51); MDiff Complete? YES; Macrocytosis SLIGHT = 6-15 cells (100X) (0-5/hpf); Monocytes 2 % (0-10); Neutrophil 88 % (42-75); Platelet Morphology Comment Appears Adequate
[2020-05-03] MEDS ORDERED: Magnesium 2 GM/50 ML BAG (IN WATER) ONE (16:05)
[2020-05-03] MEDS ORDERED: Potassium Chloride 20 MEQ TAB ONE (16:06)
[2020-05-03] MEDS ORDERED: Cefepime 2 GM VIAL ONE (16:06)
[2020-05-03 16:11] LABS: CKMB 1.2 ng/mL (0-6.6)
[2020-05-03] MEDS ORDERED: Potassium Chloride 40 MEQ in Sodium Chloride 0.9% 250 ML 250 ML IVPB SCH ×2 (16:30→23:00)
[2020-05-03 17:34] LABS: Bilirubin Large (Negative); Blood, Urine Large (Negative); Glucose, Urine (Dipstick) Negative (Negative); Ketone, Urine Trace mg/dL (Negative); Leukocyte Negative (Negative); Nitrite Positive (Negative); Protein, Urine (Dipstick) 30 mg/dL (Neg-Trace); pH, Urine 5.5 (5.0-9.0)
[2020-05-03 17:35] LABS: Clarity Hazy (Clear)
[2020-05-03 17:36] LABS: Pregnancy Test - Urine (BHCG) Negative (Negative); Pregu Control Background? CLEAR/WHITE (CLR/WHITE); Pregu Control Bar Appear? YES (CONTROL BAR)
[2020-05-03 17:44] LABS: Bacteria/HPF 4+ HPF (None Seen)
[2020-05-03 18:56] LABS: Lactic Acid 2.5 mmol/L (0.5-2.2)
[2020-05-03] MEDS ORDERED: metroNIDAZOLE 500 MG/100 ML BAG ONE (19:09)
[2020-05-03 19:19] LABS: Troponin I 0.022 ng/mL (< 0.028)
--- NOTE | 2020-05-03 19:41 | CT ---
CT ABDOMEN AND PELVIS WITH IV CONTRAST: 05/03/20 PROVIDED CLINICAL HISTORY: Abdominal pain. FINDINGS: Comparison is made with the examination dated 03/28/20. The visualized lung bases are free of significant opacity. The liver, spleen, pancreas, kidneys and adrenal glands demonstrate an unremarkable CT appearance. There is moderate free intraperitoneal fluid present. There is no localized inflammatory fat strandin g or free air apparent. There is no evidence for bowel obstruction. There is mural thickening seen involving the cecum and pr oximal ascending colon. The appendix is not distinctly identified. Conspicuous fibroid changes are again seen involving the uterus. Changes of prior cholecystectomy are seen. The osseous structures demonstrate no concerning lytic or blastic lesions. IMPRESSION: 1. Mural thickening involving the cecum and ascending colon, suggesting colitis. 2. Conspicuous free intraperitoneal fluid. POS: SMITHA
--- NOTE | 2020-05-03 19:48 | PDOC.HOSPP ---
- Objective Result Diagrams: 05/03/20 15:20 05/03/20 15:20 Hosp A/P - Plan This is a 49-year-old female patient recently admitted and discharged on 2019 with hepatitis with ascites and a left ovarian mass was just retained with ongoing abdominal distention and worsening pain which had never really resolved since her last discharge. Problems Severe sepsis secondary to colitis Lactic acidosis Ascites with possible SBP Hepatitis Urinary tract infection Elevated troponin INR 2.6 Anemia Hyponatremia Severe hypokalemia Hyperbilirubinemia Hyperglycemia
[2020-05-03 20:24] LABS: RBC Count-Automated (BF) 1178 /cu.mm; WBC/Nucleated-Auto (BF) 374 uL
[2020-05-03 20:28] LABS: BF Color Yellow; Body Fluid Source Ascites Body Fluid; Clarity Hazy (Clear); Tube # 1
--- NOTE | 2020-05-03 20:34 | PDOC.HHP ---
Hospitalist HPI - History of Present Illness Abdominal pain History of Present Illness: This is a 49-year-old female patient with a history of hypertension, left ovarian mass who was recently diagnosed with hepatitis with ascites and discharged on 04/04/2020 and presents again today with worsening abdominal pain and distention. On her previous admission she was noted to have mild ascites and hepatitis which was thought to be secondary to alcohol abuse however patient knows to do that she does not drink alcohol. Left ovarian mass which was noted on admission and extensively evaluated was followed up on outpatient basisshe notes and was deemed to be nonmalignant. Ascitic fluid cytology showed no malignancy on her last admission. Patient notes that the pain never really subsided ever since she got discharged however this has become progressively worsened especially in the right upper quadrant regionleading her to come to the ED for further evaluation. Pain is severe 9/10 in intensity worsened by movement, constant and nonradiating. She denies any associated nausea or vomiting at the moment. She also denies any chest pain or dysuria. Of note she has had a cholecystectomy in the past. On arrival to the ED Blood pressure was renal normal is however she had significant tachycardia of 110, she was afebrile satting at 100% on room air. Her lactic was elevated at 3.8 and reduced to 2.5 on repeat 3-hour check. Urinalysis was positive for nitrites and positive for WBCs. INR was elevated at 2.6. She had significant leukocytosis of 22.6 with neutrophilia. She had a mild hyponatremia of 134 and severe hypokalemia of 2.0. Liver function of note had bilirubin elevated at 7.2 with alkaline phosphatase at 199 and AST of 62. A CT scan of the abdomen interestingly did not note any acute hepatic changes however was positive for colitis and moderate ascites. Paracentesis was done in the ED prior to transfer to the [facility] Hospitalist ROS - Review of Systems Constitutional: reports: malaise. denies: fever, chills, weakness Respiratory: denies: cough, shortness of breath, SOB with excertion, pleuritic pain Cardiovascular: reports: palpitations, paroxysmal noc. dyspnea. denies: chest pain, orthopnea Gastrointestinal: reports: abdominal pain. denies: nausea, vomiting, diarrhea Genitourinary: denies: dysuria, frequency Neurological: denies: weakness, numbness, incoordination, change in speech Hospitalist History - Past Medical History Cardiac: reports: HTN Hepatobiliary: reports: Other (Hepatitis) - Past Surgical History Past Surgical History: reports: Cholecystectomy, Tonsillectomy, Other - Family History Family History: reports: Other (Reviewednone of significance) - Social History Smoking Status: Never smoker (She knows she does not drink alcohol) Alcohol: reports: None Living Situation: Alone - Exam General Appearance: awake alert Eye: PERRL, scleral icterus Respiratory: no wheezes, no rales, no ronchi, rales Gastrointestinal: tender to palpation, distended, diminished bowl sounds, voluntary guarding Extremities: no cyanosis, no clubbing, 1+ LE edema Skin: normal turgor, no rashes Neurological: cranial nerve grossly intact, no weakness Musculoskeletal: normal tone Psychiatric: A&O x 3 Hospitalist Results - Labs Result Diagrams: 05/03/20 15:20 05/03/20 15:20 Lab results: WBC 22.6 thou/uL (4.8-10.8) H 05/03/20 15:20 Hgb 11.2 g/dL (12.0-16.0) L 05/03/20 15:20 Hct 34.2 % (36.0-47.0) L 05/03/20 15:20 MCV 107.0 fL (78.0-98.0) H 05/03/20 15:20 Plt Count 279 thou/uL (130-400) 05/03/20 15:20 Band Neuts % (Manual) 4 % (5-11) L 05/03/20 15:20 Sodium 134 mmol/L (136-145) L 05/03/20 15:20 Potassium 2.0 mmol/L (3.5-5.1) L* 05/03/20 15:20 Chloride 94 mmol/L (98-107) L 05/03/20 15:20 Carbon Dioxide 27 mmol/L (22-29) 05/03/20 15:20 BUN 25 mg/dL (7.0-18.7) H 05/03/20 15:20 Creatinine 1.02 mg/dL (0.6-1.1) 05/03/20 15:20 Glucose 159 mg/dL (70-105) H 05/03/20 15:20 Lactic Acid 2.5 mmol/L (0.5-2.2) H 05/03/20 18:32 Calcium 8.0 mg/dL (7.8-10.44) 05/03/20 15:20 Total Bilirubin 7.2 mg/dL (0.2-1.2) H 05/03/20 15:20 AST 62 U/L (5-34) H 05/03/20 15:20 ALT 34 U/L (8-55) 05/03/20 15:20 Alkaline Phosphatase 199 U/L (40-110) H 05/03/20 15:20 Ammonia 36 umol/L (18-72) 05/03/20 15:27 CK-MB (CK-2) 1.2 ng/mL (0-6.6) 05/03/20 15: Troponin I 0.022 ng/mL (< 0.028) 05/03/20 18:32 Serum Total Protein 6.8 g/dL (6.0-8.3) 05/03/20 15:20 Albumin 2.5 g/dL (3.5-5.0) L 05/03/20 15:20 Lipase 85 U/L (8-78) H 05/03/20 15:20 Urine Ketones Trace mg/dL (Negative) A 05/03/20 17:23 Urine Blood Large (Negative) A 05/03/20 17:23 Urine Nitrite Positive (Negative) A 05/03/20 17:23 Ur Leukocyte Esterase Negative (Negative) 05/03/20 17:23 Urine RBC 4-6 HPF (0-3) A 05/03/20 17:23 Urine WBC 4-6 HPF (0-3) A 05/03/20 17:23 Ur Squamous Epith Cells 4-6 HPF (0-3) A 05/03/20 17:23 Urine Bacteria 4+ HPF (None Seen) A 05/03/20 17:23 Hospitalist H&P A/P - Plan Plan: This is a 49-year-old female patient recently admitted and discharged on 2019 with hepatitis with ascites and a left ovarian mass was just retained with ongoing abdominal distention and worsening pain which had never really resolved since her last discharge. Her presentation is concerning for severe sepsis secondary to colitis and possible SBP. We will admitted to IM for close monitoring overnight Problems Severe sepsis secondary to colitis She has a leukocytosis of tachycardia with colitis noted on CT scan. Started on cefepime and metronidazole IVwe will continue Received 1500 mils bolus of IV fluids in the ED Lactate trending down from 3.8-2.5 We will follow-up on culturesblood, and urine Ascites with possible SBP Unclear the source of ascites. Liver on CT today does not note any concerns for cirrhosis or nonalcoholic fatty liver. She also subserosal uterine mass and ovarian tumor which is otherwise benign so far Remote possibility of [place]/pseudomeigs syndrome Paracentesis done will await cell count and culture We will continue on cefepime and metronidazole for now She is on Lasix and Aldactone according to her list she presentswe will hold given potential for hypotension and sepsis Hepatitis This is carried on from previous admission Bilirubin remains elevated, INR is elevated above 2 Hepatitis panel was not checkedwe will order Patient notes no significant use of alcohol We will monitor CMP. Consult GI if liver function worsens Coagulopathy with elevated INR INR is above 2 We will monitor in a.m. Urinary tract infection Urine is positive for nitrates and WBCs Has diffuse abdominal pain however no obvious dysuria Given a septic picture we will culture and urine and monitor. Elevated troponinlikely type II NSTEMI Denies any chest pain and has minimal risk factors Troponin trended down from 0.03-0.22 Continue monitoring Hyponatremia This is mild We will monitor Severe hypokalemia Potassium was 2.0 at presentation. Unclear cause of hypokalemia however may be due to Lasix although she is on Aldactone at home as well We will check magnesium and replace accordingly. Hyperglycemia This may be reaction to sepsis We will however check A1c VTE prophylaxisSCD for now given her elevated INR
--- NOTE | 2020-05-03 20:51 | RAD ---
PORTABLE CHEST: 05/03/20 PROVIDED CLINICAL HISTORY: Abdominal pain. FINDINGS: Comparison 03/28/20. Cardiac and mediastinal silhouette is unchanged in appearance. No focal consolidation, pleural fluid , or pneumothorax apparent. IMPRESSION: No evidence for an acute cardiopulmonary process. POS: SMITHA
[2020-05-03 20:54] LABS: BF Segmented Neutrophils 23 %; Cell Count Non Hematic 74 %; Lymphocytes 3 %
[2020-05-03 21:05] LABS: Hemoglobin A1c 4.1 % (4.0-6.0)
[2020-05-03 21:23] VITALS: BMI 25.2
[2020-05-03 22:10] LABS: Band 9 % (5-11); Hemoglobin 10.1 g/dL (12.0-16.0); Lymphocytes 4 % (21-51); MDiff Complete? YES; Mean Corpuscular HGB CONC 32.1 g/dL (32.0-36.0); Mean Corpuscular Hemoglobin 35.1 pg (27.0-31.0); Mean Platelet Volume 8.7 fL (7.4-10.4); Monocytes 5 % (0-10); Neutrophil 82 % (42-75); Platelet Count 205 thou/uL (130-400); RBC Distribution Width 13.6 % (11.5-14.5); Red Blood Cell (RBC) Count 2.89 mill/uL (4.20-5.40); White Blood Cell (WBC) Count 19.3 thou/uL (4.8-10.8)
[2020-05-03 22:12] LABS: ALT (SGPT) 29 U/L (8-55); AST (SGOT) 62 U/L (5-34); Alkaline Phosphatase 157 U/L (40-110); Anion Gap 17 mmol/L (10-20); BUN (Urea Nitrogen) 22 mg/dL (7.0-18.7); Bilirubin, Total 5.6 mg/dL (0.2-1.2); Calc. Creatinine Clearance 102 mL/min (70-130); Calcium 7.2 mg/dL (7.8-10.44); Carbon Dioxide 21 mmol/L (22-29); Chloride 101 mmol/L (98-107); Estimated GFR-MDRD 87; Globulin 3.8 g/dL (2.4-3.5); Glucose 116 mg/dL (70-105); Protein, Total 5.8 g/dL (6.0-8.3); Sodium 136 mmol/L (136-145)
[2020-05-03 22:15] LABS: Troponin I 0.022 ng/mL (< 0.028)
[2020-05-03 22:16] LABS: Potassium 2.8 mmol/L (3.5-5.1)
[2020-05-03 23:01] LABS: HBCM Index 0.09 S/CO (0-0.79); HBSAg Index 0.19 S/CO (0-0.99); Hep A IgM AB Non-Reactive (NonReactive); Hep A IgM S/CO 0.25 S/CO (0-0.79); Hep B Surf Ag Non-Reactive S/CO (NonReactive); Hep C IgG Ab Non-Reactive (NonReactive); Hep C Index 0.19 S/CO (0-0.79); Hepatitis B Core IgM Abs Non-Reactive (NonReactive)
[2020-05-04] MEDS ORDERED: Phytonadione 10 MG/ML AMP SC SCH (00:15)
--- NOTE | 2020-05-04 00:43 | CON ---
DATE OF CONSULTATION: 05/03/2020 CHIEF COMPLAINT: Abdominal pain. HISTORY OF PRESENT ILLNESS: Ms. Montanez is a 49-year-old woman who was admitted to the hospital a month ago with abdominal pain and distention. She had imaging that showed the adnexal mass and she was found to have markedly elevated tumor markers with CA-125 and CA 19-9. She was also found to have ascites and elevated liver tests. She was evaluated by Dr. Sprague. At that time, she had indicated to him that she was drinking alcohol, which was consistent with the pattern of her liver tests and her elevated MCV. However, currently she says she has not had any alcohol in the last 10 years. She had paracentesis performed and cytology was negative. She saw Gynecology/Oncology in [place] and it sounds like that appointment was left as that doctor was going to obtain the records regarding her previous lab tests and imaging. Over the last few days, she has had progressive worsening of her right-sided diffuse abdominal pain. She has had increased abdominal distention with ascites. She came to the emergency room and in the ER, the ER physician performed paracentesis with a couple of liters removed. She did not have marked improvement in her pain after the paracentesis. She was noted to have elevated white blood cell count and was started on broad-spectrum antibiotics. Her fluid studies were negative for spontaneous bacterial peritonitis. She also reports diarrhea with 6-12 liquidy stools per day over the last couple of weeks. She had a CT scan repeated in the emergency room today that showed increased ascites and mural thickening involving the cecum and ascending colon. PAST MEDICAL HISTORY: Cirrhosis of the liver. Pelvic mass with elevated tumor markers, hypertension. PAST SURGICAL HISTORY: Cholecystectomy, tonsillectomy. FAMILY HISTORY: Negative for GI malignancy. SOCIAL HISTORY: No tobacco. She reports no alcohol in the last 10 years. No drugs. ALLERGIES: NO KNOWN DRUG ALLERGIES. MEDICATIONS: Prior to admission: 1. Tramadol. 2. Spironolactone 100 mg daily. 3. Furosemide 40 mg daily. 4. Folic acid. 5. Lactulose 30 mL twice daily. 6. Omeprazole. 7. Sertraline. REVIEW OF SYSTEMS: Negative x10 systems reviewed except as stated in the history of present illness. PHYSICAL EXAMINATION: VITAL SIGNS: Temperature 98.2, pulse 82, blood pressure 133/84. GENERAL: She is in no acute distress. She has jaundice. She has icteric sclerae. Her oropharynx is clear without lesions. No cervical or supraclavicular lymphadenopathy. LUNGS: Clear to auscultation bilaterally. HEART: Regular rate and rhythm without murmur. ABDOMEN: Soft, tender in the right lower abdomen without guarding. Her bowel sounds are present. ABDOMEN: Soft. EXTREMITIES: No lower extremity edema. She has no asterixis on neurological exam. LABORATORY DATA: Creatinine 0.72, bilirubin 5.6, AST 62, ALT 29, alkaline phosphatase 157, albumin 2.0. Previously CA 19-9 was 1580, CA-125 was 3417 and CA-15-3 was 81. Her INR has increased from 1.4 a month ago up to 2.6, now. White blood cell count is 9.3, hemoglobin 10.1, platelets 205. IMAGING: Abdomen and pelvis CT shows thickening of the right colon. The liver had an unremarkable CT appearance. IMPRESSION: 1. Abnormal liver function tests. The significantly elevated INR and pattern of AST greater than ALT and the low albumin and high bilirubin all suggest decompensated cirrhosis. Progressing acute alcoholic hepatitis could also cause this picture, but she denies any alcohol use in the last 10 years. This is inconsistent with what she told Dr. Sprague previously. Also the elevated MCV and pattern of liver tests would be consistent with alcohol use. Anyway, I will send additional blood work to check for other causes of liver disease including autoimmune markers and alpha-1 antitrypsin level, iron saturation and ceruloplasmin. 2. Adnexal mass with elevated tumor markers. This is concerning for a gynecologic malignancy. She will need to continue to follow with the Gynecologic Oncologist in [place]. The patient reports that she has called her back a couple of times, but she has not gotten back in touch with her as of yet. 3. Ascites. Her cell count is negative for SBP. She will need to maintain a low-salt diet and if her renal function remains normal, she could potentially restart the spironolactone and a lower dose of the furosemide. She did come in with significant hypokalemia. 4. Diarrhea and colon thickening in the right colon by CT scan. First and foremost, rule out Clostridium difficile. Additional stool studies will be sent as well. If she is confirmed to have Clostridium difficile, then we will need to discontinue the broader spectrum antibiotics. RECOMMENDATIONS: 1. Stool studies including Clostridium difficile. 2. We will send additional labs to further evaluate etiology of the liver disease. 3. dose of vitamin K. 4. Await input from Gynecologic Oncology. Job ID: [id number]
[2020-05-04] MEDS ORDERED: Electrolyte Replacement Protoc 1 EACH EACH FS SCH (01:15)
[2020-05-04] MEDS ORDERED: Electrolyte Replacement Protocol FS PRN (01:30)
[2020-05-04 03:14] LABS: INR-International Normal Ratio 2.6; Prothrombin Time 27.9 sec (12.0-14.7)
[2020-05-04 03:16] LABS: Lactic Acid 2.1 mmol/L (0.5-2.2)
[2020-05-04 03:26] LABS: ALT (SGPT) 32 U/L (8-55); AST (SGOT) 61 U/L (5-34); Albumin 2.3 g/dL (3.5-5.0); Alkaline Phosphatase 181 U/L (40-110); Anion Gap 17 mmol/L (10-20); BUN (Urea Nitrogen) 20 mg/dL (7.0-18.7); Bilirubin, Total 6.7 mg/dL (0.2-1.2); Calc. Creatinine Clearance 96 mL/min (70-130); Calcium 7.8 mg/dL (7.8-10.44); Carbon Dioxide 23 mmol/L (22-29); Chloride 102 mmol/L (98-107); Estimated GFR-MDRD 82; Globulin 4.3 g/dL (2.4-3.5); Glucose 113 mg/dL (70-105); Iron 83 ug/dL (50-170); Iron Binding Capacity, Total 124 mcg/dL (265-497); Protein, Total 6.6 g/dL (6.0-8.3); Sodium 139 mmol/L (136-145)
[2020-05-04 03:32] LABS: Potassium 2.7 mmol/L (3.5-5.1)
[2020-05-04 03:43] LABS: Band 11 % (5-11); Hemoglobin 10.9 g/dL (12.0-16.0); Lymphocytes 7 % (21-51); MDiff Complete? YES; Mean Corpuscular HGB CONC 32.3 g/dL (32.0-36.0); Mean Platelet Volume 8.7 fL (7.4-10.4); Monocytes 7 % (0-10); Neutrophil 75 % (42-75); Platelet Count 206 thou/uL (130-400); RBC Distribution Width 13.6 % (11.5-14.5); Red Blood Cell (RBC) Count 3.11 mill/uL (4.20-5.40); White Blood Cell (WBC) Count 22.5 thou/uL (4.8-10.8)
[2020-05-04] MEDS: Potassium Chloride 20 MEQ TAB PO SCH ×2 (04:37→09:04)
[2020-05-04] MEDS: metroNIDAZOLE 500 MG in Premix Bag 1 BAG IVPB SCH ×2 (04:38→10:43)
[2020-05-04] MEDS: Cefepime 2 GM in Sodium Chloride 0.9% 100 ML IVPB SCH ×2 (04:38→16:04)
[2020-05-04] MEDS ORDERED: Acetaminophen 325 MG TAB PO PRN (09:57)
[2020-05-04] MEDS: traMADol HCl 50 MG TAB PO PRN (10:36)
[2020-05-04] MEDS ORDERED: traMADol HCl 50 MG TAB PO SCH (12:15)
--- NOTE | 2020-05-04 12:27 | PRG ---
DATE OF SERVICE: 05/04/2020 SUBJECTIVE: Ms. Montanez still has diarrhea with multiple liquidy stools last night. She has stable to improved abdominal pain; however, still more localized over towards the right lower abdomen. OBJECTIVE: VITAL SIGNS: Temperature 97.9, pulse 104, blood pressure 128/88. GENERAL: She is in no acute distress. Awake and alert. LUNGS: Clear to auscultation bilaterally. HEART: Tachycardic, S1 and S2, without murmur. ABDOMEN: Soft. Mild tenderness in the periumbilical and right abdomen region. Bowel sounds are present. EXTREMITIES: No lower extremity edema. LABORATORY DATA: White blood cell count 22.5, hemoglobin 10.9, platelets 206. INR 2.6, creatinine 0.76, iron 83, TIBC 124, ferritin 700, bilirubin 6.7, AST 61, ALT 32, alkaline phosphatase 181, albumin 2.3, globulin 4.3. Viral hepatitis acute screen was negative. IMPRESSION: 1. Acute diarrhea and thickening of the right colon by CT scan. Stool studies have been collected including C. diff, but the results are pending. 2. Apparently, decompensated cirrhosis with elevated INR and ascites. She is given inconsistent history regarding alcohol use. I have sent additional labs to check for other causes of liver disease including autoimmune markers. We will await those labs. 3. Adnexal mass with elevated tumor markers concerning for gynecologic malignancy. 4. Ascites. RECOMMENDATIONS: 1. Await stool studies. 2. Follow the trend of her liver tests. 3. She is currently on broad-spectrum antibiotics; however, if the C. diff comes back positive, these will need to be adjusted. Job ID: [id number]
[2020-05-04 13:10] LABS: Anion Gap 15 mmol/L (10-20); BUN (Urea Nitrogen) 18 mg/dL (7.0-18.7); Calc. Creatinine Clearance 99 mL/min (70-130); Calcium 7.5 mg/dL (7.8-10.44); Carbon Dioxide 23 mmol/L (22-29); Chloride 102 mmol/L (98-107); Estimated GFR-MDRD 84; Glucose 126 mg/dL (70-105); Potassium 3.2 mmol/L (3.5-5.1); Sodium 137 mmol/L (136-145)
[2020-05-04 13:44] LABS: SARS-CoV-2 MS2 Positive; SARS-CoV-2 N Gene Negative; SARS-CoV-2 S Gene Negative; SARS-CoV-2 by NAA Not Detected (NotDetected); SARS-CoV-2 orf1ab Negative
[2020-05-04] MEDS ORDERED: Potassium Chloride 20 MEQ TAB PO SCH ×2 (14:00→21:00)
[2020-05-04] MEDS ORDERED: HYDROcodone/Acetaminophen 5/325 mg Tablet PO PRN (15:03)
[2020-05-04] MEDS ORDERED: Diazepam 5 MG TAB PO PRN (15:32)
[2020-05-04] MEDS ORDERED: Diazepam 5 MG TAB PO SCH (15:45)
[2020-05-04] MEDS ORDERED: Thiamine HCl 200 MG/2 ML VIAL IM SCH (15:45)
[2020-05-04 16:18] LABS: Lactic Acid 2.3 mmol/L (0.5-2.2)
--- NOTE | 2020-05-04 16:37 | ULT ---
EXAM: Bilateral lower extremity venous ultrasound HISTORY: Bilateral lower extremity pain and swelling. COMPARISON: 03/29/2020 TECHNIQUE: Multiplanar grayscale and color Doppler images were obtained in a bilateral lower extremit y venous ultrasound. Spectral analysis of the Doppler waveforms were performed. FINDINGS: The bilateral common femoral vein, profunda femoral veins, superficial femoral veins, and p opliteal veins are normal in appearance without visible thrombus. These vessels demonstrate normal compression, flow, and augmentation. The bilateral posterior tibial veins, profunda femoral veins and greater saphenous veins are patent w ithout evidence of DVT. IMPRESSION: No evidence of DVT in the left or right lower extremity.
--- NOTE | 2020-05-04 16:47 | ULT ---
BILATERAL LOWER EXTREMITY ARTERIAL DOPPLER: Date: 05-04-2020 PROVIDED CLINICAL HISTORY: Leg pain. FINDINGS: Justice scale and color Doppler sonography with Spectral analysis was performed of the bilateral common femoral, profunda femoral, superficial femoral, popliteal, anterior tibial, posterior tibial and dors tabby pedis arteries. On the right, there are triphasic waveforms throughout with the exception of the popliteal which is d ysphasic. On the left, there are triphasic waveforms throughout the exception of the posterior tibial and dorsalis pedis arteries which are biphasic. No focal velocity alteration is evident to suggest f ocal stenosis. IMPRESSION: No sonographic evidence for significant lower extremity arterial vascular disease. POS: SMITHA
[2020-05-04] MEDS: HYDROcodone/Acetaminophen 5/325 mg Tablet PO PRN ×2 (17:10→21:01)
--- NOTE | 2020-05-04 17:34 | PDOC.HOSPP ---
- Subjective Encounter Date: 05/04/20 Encounter Time: 14:00 Subjective: Patient was seen and examined in bed. She complains of ongoing pain in her legs and feet bilaterally Also has pain in her abdomen a little improved from a day ago and less distended. She also has ongoing diarrhea about 4 stools overnight. She denies nausea or vomiting - Objective Vital Signs & Weight: Vital Signs (12 hours) Temp Pulse Ox 05/04/20 15:18 98.2 F 05/04/20 11:13 97.9 F 05/04/20 08:00 96 05/04/20 07:11 97.3 F L Weight Weight 146 lb 12.8 oz Most Recent Monitor Data Heart Rate from ECG 98 NIBP 121/86 NIBP BP-Mean 97 Respiration from ECG 17 SpO2 100 I&O: 05/03/20 05/04/20 05/05/20 06:59 06:59 06:59 Intake Total 1030 Output Total 750 Balance 280 Result Diagrams: 05/04/20 02:52 05/04/20 12:43 Hospitalist ROS - Review of Systems Constitutional: reports: malaise. denies: fever, sweats, weakness Respiratory: denies: cough, shortness of breath, SOB with excertion, wheezing Cardiovascular: denies: chest pain, orthopnea, paroxysmal noc. dyspnea Gastrointestinal: reports: abdominal pain, diarrhea Genitourinary: denies: dysuria, frequency Musculoskeletal: reports: leg pain, foot pain - Medication Medications: Active Medications Generic Name Dose Route Start Last Admin Trade Name Freq PRN Reason Stop Dose Admin Hydrocodone Bitart/Acetaminophen 1 tab 05/04/20 16:29 05/04/20 17:10 [place] 5/325 PO 1 tab Q4H PRN Administration Pain Diazepam 10 mg 05/04/20 15:45 05/04/20 16:28 Valium PO 05/04/20 17:45 10 mg NOW SHUKRI Administration Cefepime HCl 2 gm/ Sodium 100 mls @ 200 mls/hr 05/04/20 04:00 05/04/20 16:04 Chloride IVPB 100 mls 0400,1600 SHUKRI Administration Metronidazole 500 mg/ Device 100 mls @ 100 mls/hr 05/04/20 04:00 05/04/20 10: 43 IVPB 100 mls 0400,1200,2000 SHUKRI Administration Magnesium Sulfate 1 gm/ Sodium 102 mls @ 102 mls/hr 05/04/20 15:45 05/04/20 16:02 Chloride IVPB 05/04/20 17:45 102 mls NOW SHUKRI Administration Potassium Chloride 40 meq 05/04/20 14:00 05/04/20 16:03 K-Dur PO 05/04/20 18:00 40 meq NOW SHUKRI Administration Sertraline HCl 50 mg 05/04/20 09:00 05/04/20 09:03 Zoloft PO 50 mg DAILY SHUKRI Administration Thiamine HCl 100 mg 05/04/20 15:45 05/04/20 16:06 Thiamine Hcl IM 05/04/20 17:45 100 mg NOW SHUKRI Administration Tramadol HCl 50 mg 05/04/20 09:57 05/04/20 10:36 Ultram PO 50 mg Q4H PRN Administration Moderate to Severe Pain (6-10) - Exam General Appearance: awake alert Eye: PERRL, scleral icterus Neck: no JVD, no lymphadenopathy Heart: RRR, no murmur, no gallops, no rubs, normal peripheral pulses Respiratory: no wheezes, no rales, no ronchi, no tachypnea Gastrointestinal: normal bowel sounds, tender to palpation, distended, voluntary guarding Extremities: no clubbing, 1+ LE edema Extremities - other findings: Foot livedo reticularis exquisitely tender. 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 Initial diagnosis was for concerns for severe sepsis. She was admitted to IMCU for close monitoring. She is now C. difficile positive. COVID is negative Severe sepsis Secondary to C. difficile colitis Patient is leukocytosis of WBC 22.3 from 19.3 Lactate was 2.3 at presentation reduce to 2.1 and now back at 2.3 Start on oral vancomycin Blood growing coagulase-negative staph in 1 of 2 bottles likely contamination Urine also growing E. coli with potential for multiple organisms and this may be contamination. Will discontinue antibiotics Continue IV fluid hydration Monitor lactate Monitor in IMCU for 1 more day and transfer possibly tomorrow. C. difficile colitis With multiple diarrhea stools Start oral vancomycin Will discontinue antibiotics for now [place] for ongoing severe abdominal We will appreciate GI input. Hepatitis Unclear etiology possibly alcoholic. Patient denies alcohol use however this information has been contradictory Hepatitis panel is negative GI on boardwaking up from other causes of hepatitis including autoimmune hepatitis. Follow-up on labs. Ascites Unclear etiologyfollowing up on PUBLIC HEALTH TECHNICIAN evaluation to rule out malignancy. Indeed CA 19.9, CA 153, CEA 125 will significantly elevated on her last admission. Ascitic fluid not suggestive of SBP Had 2.5 L removed a day ago We will start her spironolactone and reduce dose of Lasix on account of hypokalemia. Hypokalemia Possibly due to Lasix Reduce Lasix dose and maintain Aldactone TSH on 10/15/2019 was 3.2 within normal limits Electrolyte replacement protocol Bilateral leg and foot painappears neuropathic This has been chronic and etiology is unclear. Patient does not appear to have diabetes thyroid disease B12 was within normal limitsthousand 300 about a month ago Will assess if [place] improve the pain otherwise you might have to start gabapentin Continue monitoring. Coagulopathy INR stable at 2.6 We will continue monitoring. Possible UTI No symptoms however has nitrates and WBCs Culture appears to be growing mixed organismswe will follow-up on that. We will hold antibiotics for now on account of C. difficile which could be worsening. Continue monitoring VTE prophylaxisstart Lovenox today
[2020-05-04] MEDS: Vancomycin HCl 25 MG/ML Oral PO SCH ×2 (18:07→21:00)
[2020-05-04 20:26] LABS: Potassium 3.4 mmol/L (3.5-5.1)
[2020-05-05 00:46] LABS: Amphetamine Not Detected (NotDetected); Barbiturates Screen Not Detected (NotDetected); Benzodiazepine Screen Detected (NotDetected); Cocaine Metabolite Screen Not Detected (NotDetected); Medtox Control Line Valid? VALID (VALID); Medtox Reader # READER 4; Methadone Not Detected (NotDetected); Methamphetamine Not Detected (NotDetected); Opiate Screen Detected (NotDetected); Oxycodone Screen Not Detected (NotDetected); Phencyclidine (PCP) Not Detected (NotDetected); THC/Cannabinoid Screen Not Detected (NotDetected); Tricyclic Screen Not Detected (NotDetected)
[2020-05-05] MEDS ORDERED: Diazepam 5 MG TAB PO PRN (04:00)
[2020-05-05 04:32] LABS: INR-International Normal Ratio 2.1; PTT 53.9 sec (22.9-36.1)
[2020-05-05] MEDS: Vancomycin HCl 25 MG/ML Oral PO SCH ×4 (04:38→20:06)
[2020-05-05 04:52] LABS: ALT (SGPT) 26 U/L (8-55); AST (SGOT) 42 U/L (5-34); Alkaline Phosphatase 152 U/L (40-110); Anion Gap 12 mmol/L (10-20); BUN (Urea Nitrogen) 17 mg/dL (7.0-18.7); Bilirubin, Total 6.6 mg/dL (0.2-1.2); Calc. Creatinine Clearance 118 mL/min (70-130); Calcium 7.4 mg/dL (7.8-10.44); Carbon Dioxide 21 mmol/L (22-29); Chloride 107 mmol/L (98-107); Estimated GFR-MDRD Greater than 90; Globulin 3.8 g/dL (2.4-3.5); Glucose 107 mg/dL (70-105); Potassium 3.8 mmol/L (3.5-5.1); Protein, Total 5.8 g/dL (6.0-8.3); Sodium 136 mmol/L (136-145)
[2020-05-05 05:46] LABS: Band 8 % (5-11); Eosinophils 8 % (0-10); Hemoglobin 9.7 g/dL (12.0-16.0); Lymphocytes 3 % (21-51); MDiff Complete? YES; Macrocytosis SLIGHT = 6-15 cells (100X) (0-5/hpf); Mean Corpuscular Hemoglobin 34.3 pg (27.0-31.0); Mean Platelet Volume 9.1 fL (7.4-10.4); Monocytes 4 % (0-10); Neutrophil 77 % (42-75); Platelet Count 179 thou/uL (130-400); RBC Distribution Width 13.5 % (11.5-14.5); Red Blood Cell (RBC) Count 2.81 mill/uL (4.20-5.40); White Blood Cell (WBC) Count 24.2 thou/uL (4.8-10.8)
[2020-05-05 06:19] LABS: Syphilis Antibody Nonreactive (Nonreactive); Syphilis Antibody Index 0.07 S/CO (<1.00 Non-Reactive)
[2020-05-05] MEDS: HYDROcodone/Acetaminophen 5/325 mg Tablet PO PRN ×3 (08:53→20:04)
[2020-05-05] MEDS: Folic Acid 1 MG TAB PO SCH (08:56)
[2020-05-05] MEDS: Thiamine 100 MG TAB PO SCH (08:56)
[2020-05-05] MEDS: Multivitamin W/ Minerals 1 TAB PO SCH (08:56)
[2020-05-05] MEDS ORDERED: Magnesium Oxide 400 MG TAB PO SCH (09:00)
[2020-05-05] MEDS: traMADol HCl 50 MG TAB PO PRN (15:35)
--- NOTE | 2020-05-05 17:16 | PRG ---
DATE OF SERVICE: 05/05/2020 SUBJECTIVE: Ms. Montanez still has some right-sided abdominal pain, little more abdominal swelling today. OBJECTIVE: VITAL SIGNS: Temperature 98.2, blood pressure 141/83, pulse is 101. GENERAL: She is in no acute distress. She is jaundiced. Alert and oriented x3. LUNGS: Clear to auscultation bilaterally. HEART: Regular rate and rhythm without murmur. ABDOMEN: Soft, mildly distended. Bowel sounds are present. EXTREMITIES: No lower extremity edema. LABORATORY DATA: White blood cell count 24.2, hemoglobin 9.7, platelets 179. INR 2.1. Creatinine 0.62, bilirubin 6.6, AST 42, ALT 26, alkaline phosphatase 152, albumin 2.0. IMPRESSION: 1. Clostridium difficile colitis. 2. Decompensated cirrhosis. She has given inconsistent history regarding alcohol use, but currently denies any use. Labs for other cause of the liver disease have been requested. 3. Adnexal mass with elevated tumor markers concerning for gynecologic malignancy. 4. Ascites. RECOMMENDATIONS: 1. Vancomycin orally. 2. Add metronidazole IV. 3. Cefepime has been discontinued. However, she has a few doses for admitting diagnosis of sepsis and UTI. 4. I would hold oral magnesium for now in light of the diarrhea. Job ID: [id number]
[2020-05-05] MEDS: Gabapentin 300 MG CAP PO SCH (20:04)
[2020-05-05] MEDS: metroNIDAZOLE 500 MG in Premix Bag 1 BAG IVPB SCH (20:05)
--- NOTE | 2020-05-05 23:57 | PDOC.HOSPP ---
- Subjective Encounter Date: 05/05/20 Encounter Time: 14:00 Subjective: Patient was seen and examined in bed. She complains of ongoing pain in her abdomen and her feet bilaterally. Feels a little better compared to yesterday - Objective Vital Signs & Weight: Vital Signs (12 hours) Temp Pulse Resp BP BP BP Pulse Ox 05/05/20 20:00 133/82 96 05/05/20 19:56 98.2 F 103 H 20 133/82 96 05/05/20 16:00 144/88 H 05/05/20 15:25 97.6 F 101 H 20 144/88 H 100 Weight Admit Weight 146 lb 12.8 oz Weight 146 lb 12.8 oz Most Recent Monitor Data Heart Rate from ECG 101 NIBP 141/83 NIBP BP-Mean 102 Respiration from ECG 29 SpO2 100 I&O: 05/04/20 05/05/20 05/06/20 06:59 06:59 06:59 Intake Total 2810 560 Output Total 950 300 Balance 1860 260 Result Diagrams: 05/05/20 03:30 05/05/20 03:30 Hospitalist ROS - Review of Systems Constitutional: denies: fever, chills Gastrointestinal: reports: abdominal pain, diarrhea Musculoskeletal: reports: leg pain, foot pain - Medication Medications: Active Medications Generic Name Dose Route Start Last Admin Trade Name Freq PRN Reason Stop Dose Admin Hydrocodone Bitart/Acetaminophen 1 tab 05/04/20 16:29 05/05/20 20:04 [place] 5/325 PO 1 tab Q4H PRN Administration Pain Folic Acid 1 mg 05/05/20 09:00 05/05/20 08:56 Folvite PO 1 mg DAILY SHUKRI Administration Gabapentin 300 mg 05/05/20 21:00 05/05/20 20:04 Neurontin PO 300 mg BID SHUKRI Administration Metronidazole 500 mg/ Device 100 mls @ 100 mls/hr 05/05/20 22:00 05/05/20 20: 05 IVPB 100 mls Q8HR SHUKRI Administration Iron/Minerals/Multivitamins 1 tab 05/05/20 09:00 05/05/20 08:56 Theragran M PO 1 tab DAILY SHUKRI Administration Sertraline HCl 50 mg 05/04/20 09:00 05/05/20 08:56 Zoloft PO 50 mg DAILY SHUKRI Administration Thiamine HCl 100 mg 05/05/20 09:00 05/05/20 08:56 Thiamine PO 100 mg DAILY SHUKRI Administration Tramadol HCl 50 mg 05/04/20 09:57 05/05/20 15:35 Ultram PO 50 mg Q4H PRN Administration Moderate to Severe Pain (6-10) Vancomycin HCl 125 mg 05/04/20 16:00 05/05/20 20:06 First Vancomycin PO 125 mg Q6H SHUKRI Administration - Exam Eye: PERRL, anicteric sclera Gastrointestinal: normal bowel sounds, tender to palpation, distended Extremities - other findings: Exquisite tenderness in feet bilaterally. 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 Initial diagnosis was for concerns for severe sepsis. She was admitted to IMCU for close monitoring. She is now C. difficile positive. COVID is negative She was initially managed in IMCU however will transfer out of unit today Severe sepsis Secondary to C. difficile colitis Patient is leukocytosis of WBC 22.3 from 19.3 Resolving C. difficile colitis With multiple diarrhea stools Start oral vancomycin Will discontinue antibiotics for now [place] for ongoing severe abdominal We will appreciate GI input. Staph aureus in stool. Possible staph aureus colitis as well We will call ID to help manage this. Hepatitis Unclear etiology possibly alcoholic. Patient denies alcohol use however this information has been contradictory Hepatitis panel is negative GI on boardwaking up from other causes of hepatitis including autoimmune hepatitis. Follow-up on labs. Ascites Unclear etiologyfollowing up on DIVISIONAL HUMAN RESOURCES DIRECTOR evaluation to rule out malignancy. Indeed CA 19.9, CA 153, CEA 125 will significantly elevated on her last admission. Ascitic fluid not suggestive of SBP Had 2.5 L removed a day ago We will start her spironolactone and reduce dose of Lasix on account of hypokalemia. Hypokalemia Possibly due to Lasix Reduce Lasix dose and maintain Aldactone TSH on 10/15/2019 was 3.2 within normal limits Electrolyte replacement protocol Bilateral leg and foot painappears neuropathic This has been chronic and etiology is unclear. Patient does not appear to have diabetes thyroid disease B12 was within normal limitsthousand 300 about a month ago Will assess if [place] improve the painstart gabapentin Continue monitoring. Coagulopathy INR stable at 2.6 We will continue monitoring. Possible UTI No symptoms however has nitrates and WBCs Culture appears to be growing mixed organismswe will follow-up on that. We will hold antibiotics for now on account of C. difficile which could be worsening. Continue monitoring VTE prophylaxisstart Lovenox today
[2020-05-06] MEDS: Vancomycin HCl 25 MG/ML Oral PO SCH ×4 (05:12→20:49)
[2020-05-06] MEDS: metroNIDAZOLE 500 MG in Premix Bag 1 BAG IVPB SCH ×3 (05:12→20:43)
[2020-05-06] MEDS: Multivitamin W/ Minerals 1 TAB PO SCH (08:05)
[2020-05-06] MEDS: Thiamine 100 MG TAB PO SCH (08:06)
[2020-05-06] MEDS: HYDROcodone/Acetaminophen 5/325 mg Tablet PO PRN ×3 (08:06→20:42)
[2020-05-06] MEDS: Gabapentin 300 MG CAP PO SCH ×2 (08:06→20:42)
[2020-05-06] MEDS: Folic Acid 1 MG TAB PO SCH (08:09)
[2020-05-06 10:30] LABS: Mean Corpuscular HGB CONC 31.1 g/dL (32.0-36.0); Mean Corpuscular Hemoglobin 34.6 pg (27.0-31.0); Mean Platelet Volume 8.7 fL (7.4-10.4); Platelet Count 198 thou/uL (130-400); RBC Distribution Width 13.7 % (11.5-14.5); Red Blood Cell (RBC) Count 2.89 mill/uL (4.20-5.40); White Blood Cell (WBC) Count 24.8 thou/uL (4.8-10.8)
[2020-05-06 10:42] LABS: ALT (SGPT) 27 U/L (8-55); AST (SGOT) 58 U/L (5-34); Albumin 2.2 g/dL (3.5-5.0); Alkaline Phosphatase 166 U/L (40-110); Anion Gap 13 mmol/L (10-20); BUN (Urea Nitrogen) 15 mg/dL (7.0-18.7); Bilirubin, Total 5.8 mg/dL (0.2-1.2); Calc. Creatinine Clearance 112 mL/min (70-130); Calcium 7.6 mg/dL (7.8-10.44); Carbon Dioxide 20 mmol/L (22-29); Chloride 105 mmol/L (98-107); Estimated GFR-MDRD Greater than 90; Globulin 3.7 g/dL (2.4-3.5); Glucose 144 mg/dL (70-105); Potassium 3.8 mmol/L (3.5-5.1); Protein, Total 5.9 g/dL (6.0-8.3); Sodium 134 mmol/L (136-145)
[2020-05-06] MEDS: traMADol HCl 50 MG TAB PO PRN (10:43)
[2020-05-06 10:44] LABS: Band 4 % (5-11); Eosinophils 4 % (0-10); Lymphocytes 10 % (21-51); MDiff Complete? YES; Macrocytosis SLIGHT = 6-15 cells (100X) (0-5/hpf); Monocytes 7 % (0-10); Neutrophil 75 % (42-75); Platelet Morphology Comment Appears Adequate; Polychromasia SLIGHT = 2-3 cells (100X) (0-2/hpf)
[2020-05-06 12:38] LABS: Smooth Muscle Total ABS 14 Units (0-19)
[2020-05-06 13:58] LABS: ANA Symphony (Qualitative) Negative (Negative); ANA Symphony (Quantitative) 0.1 Ratio (< 0.7 Negative); dsDNA IgG Antibody 0.8 IU/mL (<10 Negative)
[2020-05-06 14:34] LABS: EliA Vaculitis New Method **** NEW METHOD ****; Mitochondrial Ab 2.3 U/mL (<4 Negative)
[2020-05-06] MEDS ORDERED: Spironolactone 100 MG TAB PO SCH (15:30)
--- NOTE | 2020-05-06 17:13 | PDOC.HOSPP ---
- Subjective Encounter Date: 05/06/20 Encounter Time: 15:00 Subjective: Patient examined in bed. She has ongoing abdominal and lower limb pain but is much better than the day ago. She denies any chest pain or shortness of breath - Objective Vital Signs & Weight: Vital Signs (12 hours) Temp Pulse Resp BP BP Pulse Ox 05/06/20 16:00 126/83 05/06/20 12:00 126/83 05/06/20 08:00 126/83 96 05/06/20 07:16 98.1 F 100 18 126/83 96 Weight Admit Weight 146 lb 12.8 oz Weight 146 lb 12.8 oz Most Recent Monitor Data Heart Rate from ECG 101 NIBP 141/83 NIBP BP-Mean 102 Respiration from ECG 29 SpO2 100 I&O: 05/05/20 05/06/20 05/07/20 06:59 06:59 06:59 Intake Total 2810 560 Output Total 950 300 Balance 1860 260 Result Diagrams: 05/06/20 10:07 05/06/20 10:07 Hospitalist ROS - Review of Systems Constitutional: denies: fever, chills, sweats Respiratory: denies: cough, shortness of breath, hemoptysis Gastrointestinal: reports: nausea, abdominal pain, diarrhea. denies: vomiting Musculoskeletal: reports: leg pain, foot pain - Medication Medications: Active Medications Generic Name Dose Route Start Last Admin Trade Name Freq PRN Reason Stop Dose Admin Hydrocodone Bitart/Acetaminophen 1 tab 05/04/20 16:29 05/06/20 14:34 [place] 5/325 PO 1 tab Q4H PRN Administration Pain Folic Acid 1 mg 05/05/20 09:00 05/06/20 08:09 Folvite PO 1 mg DAILY SHUKRI Administration Gabapentin 300 mg 05/05/20 21:00 05/06/20 08:06 Neurontin PO 300 mg BID SHUKRI Administration Metronidazole 500 mg/ Device 100 mls @ 100 mls/hr 05/05/20 22:00 05/06/20 14: 17 IVPB 100 mls Q8HR SHUKRI Administration Iron/Minerals/Multivitamins 1 tab 05/05/20 09:00 05/06/20 08:05 Theragran M PO 1 tab DAILY SHUKRI Administration Sertraline HCl 50 mg 05/04/20 09:00 05/06/20 08:05 Zoloft PO 50 mg DAILY SHUKRI Administration Spironolactone 100 mg 05/06/20 15:30 05/06/20 15:55 Aldactone PO 05/06/20 17:30 100 mg NOW SHUKRI Administration Thiamine HCl 100 mg 05/05/20 09:00 05/06/20 08:06 Thiamine PO 100 mg DAILY SHUKRI Administration Tramadol HCl 50 mg 05/04/20 09:57 05/06/20 10:43 Ultram PO 50 mg Q4H PRN Administration Moderate to Severe Pain (6-10) Vancomycin HCl 125 mg 05/04/20 16:00 05/06/20 15:55 First Vancomycin PO 125 mg Q6H SHUKRI Administration - Exam General - other findings: Patient is awake and alert. 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 Initial diagnosis was for concerns for severe sepsis. She was admitted to IMCU for close monitoring. She is now C. difficile positive. COVID is negative She was initially managed in IMCU however will transfer out Severe sepsis Secondary to C. difficile colitis Patient is leukocytosis of WBC 22.3 from 19.3 Resolving C. difficile colitis With multiple diarrhea stools Start oral vancomycin Will discontinue antibiotics for now [place] for ongoing severe abdominal We will appreciate GI input. Staph aureus in stool. Possible staph aureus colitis as well We will call ID to help manage this. Hepatitis Unclear etiology possibly alcoholic. Patient denies alcohol use however this information has been contradictory Hepatitis panel is negative GI on boardwaking up from other causes of hepatitis including autoimmune hepatitis. Follow-up on labs. Ascites Unclear etiologyfollowing up on CORPORATION OFFICER evaluation to rule out malignancy. Indeed CA 19.9, CA 153, CEA 125 will significantly elevated on her last admission. Ascitic fluid not suggestive of SBP Had 2.5 L removed on day of admission. We will start her spironolactone and reduce dose of Lasix on account of hypokalemia. Left adnexal mass Unclear whether this is malignant Requesting records from CORPORATION OFFICER. Hypokalemia corrected Bilateral leg and foot painappears neuropathic This has been chronic and etiology is unclear. Patient does not appear to have diabetes thyroid disease B12 was within normal limitsthousand 300 about a month ago Will assess if [place] improve the painstart gabapentin Continue monitoring. Coagulopathy Monitor INR Likely due to liver cirrhosis Possible UTI No symptoms however has nitrates and WBCs Culture appears to be growing mixed organismswe will follow-up on that. We will hold antibiotics for now on account of C. difficile which could be worsening. Continue monitoring VTE prophylaxisstart Lovenox today
--- NOTE | 2020-05-06 19:46 | PRG ---
DATE OF SERVICE: 05/06/2020 SUBJECTIVE: The patient feels better today. She is tolerating diet better without nausea or vomiting. She is having less frequent bowel movements with consistency being more formed. She is getting more uncomfortable with ascites, but able to lie in bed without shortness of breath. OBJECTIVE: VITAL SIGNS: Temperature is 98.1, blood pressure 126/83, pulse of 100. GENERAL: She is alert, lucid, in no distress. HEENT: Anicteric sclerae. NECK: Supple. CVS: Shows normal S1 and S2. Regular rate and rhythm. CHEST: Shows a breath sounds. ABDOMEN: Protuberant with ascites, but not tense. She has active bowel sounds. No tenderness. EXTREMITIES: Show no edema. LABORATORY DATA: WBCs 24.8, hemoglobin 10.0, hematocrit 32.1, platelet count of 198. Chemistries within normal limits. Creatinine 0.65, BUN of 15, bilirubin 5.8, AST 58, ALT of 27, alkaline phosphatase 166. ASSESSMENT: 1. Clostridium difficile colitis, clinically improving with less frequent bowel movement and more stool consistency. Her leukocytosis is little bit elevated, but she is afebrile and does not appear toxic. 2. Decompensated cirrhosis with ascites. However, she could also have malignant ascites. 3. Adnexal mass with elevated tumor markers, worrisome for ovarian cancer. 4. Ascites. RECOMMENDATIONS: 1. Continue oral vancomycin and IV metronidazole. 2. The patient may need repeat paracentesis in 2 days or so. If volume increases, then she has problem lying flat. 3. We will follow. Job ID: [id number]
--- NOTE | 2020-05-06 20:32 | CON ---
DATE OF CONSULTATION: 05/06/2020 REASON FOR CONSULTATION: Diarrhea and chronic liver disease. HISTORY OF PRESENT ILLNESS: A 49-year-old, who has a history of hypertension and fibromyalgia and developed new onset of abdominal distention and pain, which initially brought her to the hospital at the end of March this year. The symptoms had been present much earlier in the year, but due to the COVID pandemic, she could not obtain the proper management for her symptoms until they became intolerable. She has a history of hypertension, for which she took medication as well as Zoloft for management of fibromyalgia. She had noticed weight loss as well, some nausea and emesis. She has had loose stool intermittently over the past few months and has developed worsening fatigue, so at the end of March, the patient was discharged with a diagnosis of ascites with the possibility of gynecologic cancer. She had abnormal liver function tests and a possible liver mass. On the March 28, a CT scan is interpreted as showing heterogeneous attenuation of the liver with enlargement. The spleen was not remarkable and she had evidence of intraabdominal ascites and what they described as an enhancing left adnexal mass measuring 6.2 cm. This adnexal mass actually subsequently was determined by Radiology to represent fibroid growing into the area of the left ovary, not a true adnexal mass. Unfortunately, this adnexal mass led to measurement of tumor markers, which were elevated, most likely due to her chronic liver disease and her co-workup were site tract because of the initial finding in the imaging done in March. This again has been definitively reinterpreted as representing a fibroid growing towards the region of the left ovary. In her discharge planning, the patient was sent home with furosemide, folic acid, spironolactone, metoprolol, and omeprazole, and she had hepatitis serology , which was negative. All the autoimmune panel including PRATIK was negative. In the meantime, she went to a manager agency oncologist in [place], who did not feel that she probably had a pelvic malignancy, and now she is readmitted with diffuse abdominal pain and then progressively worsening symptoms of hyperalgesia and hyperesthesia in the lower extremities, which make it hard for her to ambulate. This has worsened over the past 2 weeks. She can barely go to the toilet at home because of this obviously neuropathic pain and so now, she was readmitted. At this time, we have an ascitic fluid evaluation, which showed 374 wbc's, 1178 rbc's, and amylase of 8, total protein less than 1, consistent with ascites from portal hypertension with possible superimposed SBP. Other findings include a sodium 134, creatinine 0.65, calcium 7.6, total bilirubin 5.8, direct bilirubin 7.4, AST 58, ALT 27, alkaline phosphatase 166, and albumin 2.2. BNP 72. Alpha-1 antitrypsin phenotype was submitted and I believe ceruloplasmin has been submitted as well. The ferritin was 762. White cell count 24.8, hemoglobin 10, and platelets 198. The patient had a stool submitted for Clostridium difficile, which was positive for both antigen and toxin. Stool culture with Staph aureus, which is probably does not have pertinent's to the current clinical presentation. There was absence of elevated fecal lactoferrin. Currently, Ms. Montanez is awake. She does not appear in distress. She has tremendous hyperalgesia as noted in the physical exam. Still having abdominal pain and some loose stools intermittently. No respiratory symptoms. No headaches. No visual symptoms, sore throat, odynophagia, or dysphagia. No dyspnea or cough. PAST MEDICAL HISTORY: Includes hypertension, fibromyalgia, migraine headaches, chronic liver disease of uncertain etiology with portal hypertension, ascites, which has been progressing over the past many months. A workup has been hindered by the COVID epidemic. She also has a history of this pelvic mass, which actually represents a fibroid. The radiologist Dr. Fox has conclusively determine that this is not an ovarian tumor or mass. It just looks that way because the fibroids pedunculated, and grows towards the left adnexal structures. The elevation in the tumor marker is most likely due to the chronic liver disease. She has had prior miscarriages. She lives alone in the area. 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 She works on the side part-time. ALLERGIES: NONE. MEDICATIONS: Currently, she is receiving; 1. Neurontin. 2. Lasix. 3. Folvite. 4. Valium. 5. [place]. 6. Theragran. 7. Zoloft. 8. Aldactone. 9. Thiamine. 10. Ultram. FAMILY HISTORY: Noncontributory. PHYSICAL EXAMINATION: VITAL SIGNS: Temperature max 98.2, BP 120/80, pulse 101, and she is saturating 96 on room air. SKIN: I did not see any evidence of spider angiomata. She has a peripheral IV access. She is voiding spontaneously. Periorbital edema is noted. No lymphadenopathy. Oral cavity is not particularly remarkable. NECK: Supple. LUNGS: Symmetric clear breath sounds. HEART: S1 and S2. Regular rate. No S3 or S4. ABDOMEN: Distended with ascites and diffusely tender. Bowel sounds are somewhat increased. No bladder distention. EXTREMITIES: No joint inflammatory activity. She has marked tenderness in the feet and in the legs, even slight touch elicits marked pain, which is obviously a hyperesthetic pain from neuropathy. Pulses are 1+ in dorsalis pedis. I did not check her reflexes in the plantar aspect because of severe pain induced. NEUROLOGIC: Her cognitive function is fine and she has good recollection. Speech is normal. No delusional thinking process. LABORATORY DATA: The white cell count 24.8, hemoglobin 10, platelets 198, 75% neutrophils, and 10% lymphocytes. INR was 2.1. Sodium 134 and creatinine 0.65. The abnormal liver function test results as noted. Urinalysis 4 to 6 wbc's. The other tests mentioned above. She had a repeat abdomen and pelvis CT and this has been discussed as above. 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 difficile colitis. The white cells in the ascitic fluid are somewhat elevated, which would be suggestive of SBP as well. DISCUSSION: I think the issue of the ovarian mass has been resolved in discussions with Dr. Fox. He stated that there is no doubt that is a pedunculated fibroid that is veering towards the left ovary and giving the impression of an ovarian mass, but that is not the case, so I think we should settle this once for all and she should not pursue any further evaluation for that and should concentrate on her liver disease, trying to establish an ideologic diagnosis or define it as cryptogenic cirrhosis. She is very young and would be probably a candidate for liver transplant. Other than that the C. diff treatment can be pursued as currently with eventual transition to oral continuation of vancomycin oral in the outpatient setting. She is at increased risk of relapse and may want to consider vancomycin taper in the outpatient setting. Job ID: [id number] [facility], [place]
[2020-05-07] MEDS: HYDROcodone/Acetaminophen 5/325 mg Tablet PO PRN ×5 (00:29→20:33)
[2020-05-07] MEDS: metroNIDAZOLE 500 MG in Premix Bag 1 BAG IVPB SCH ×3 (05:36→20:34)
[2020-05-07] MEDS: Vancomycin HCl 25 MG/ML Oral PO SCH ×5 (05:37→23:24)
[2020-05-07 06:26] LABS: #Basophils 0.2 thou/uL (0.0-0.2); #Lymphocytes 2.5 thou/uL (1.20-3.40); #Monocytes 1.7 thou/uL (0.11-0.59); #Neutrophils 16.1 thou/uL (1.40-6.50); %Basophils 0.7 % (0.0-1.0); %Eosinophils 4.8 % (0.0-10.0); %Lymphocytes 11.7 % (21.0-51.0); %Monocytes 7.9 % (0.0-10.0); %Neutrophils 74.9 % (42.0-75.0); Hemoglobin 9.2 g/dL (12.0-16.0); Mean Corpuscular HGB CONC 31.6 g/dL (32.0-36.0); Mean Corpuscular Hemoglobin 34.9 pg (27.0-31.0); Mean Platelet Volume 8.7 fL (7.4-10.4); Platelet Count 189 thou/uL (130-400); RBC Distribution Width 14.3 % (11.5-14.5); Red Blood Cell (RBC) Count 2.63 mill/uL (4.20-5.40); White Blood Cell (WBC) Count 21.5 thou/uL (4.8-10.8)
[2020-05-07 06:55] LABS: ALT (SGPT) 24 U/L (8-55); AST (SGOT) 48 U/L (5-34); Alkaline Phosphatase 166 U/L (40-110); Anion Gap 12 mmol/L (10-20); BUN (Urea Nitrogen) 16 mg/dL (7.0-18.7); Bilirubin, Total 4.7 mg/dL (0.2-1.2); Calc. Creatinine Clearance 114 mL/min (70-130); Calcium 7.4 mg/dL (7.8-10.44); Carbon Dioxide 20 mmol/L (22-29); Chloride 102 mmol/L (98-107); Estimated GFR-MDRD Greater than 90; Globulin 3.6 g/dL (2.4-3.5); Glucose 104 mg/dL (70-105); Potassium 3.6 mmol/L (3.5-5.1); Protein, Total 5.6 g/dL (6.0-8.3); Sodium 130 mmol/L (136-145)
[2020-05-07] MEDS ORDERED: Sodium Bicarbonate 2.5 MEQ/5 ML VIAL ONE (09:09)
[2020-05-07] MEDS ORDERED: Lidocaine 1% PF 5 ML VIAL ONE (09:10)
[2020-05-07] MEDS: Furosemide 20 MG TAB PO SCH ×2 (10:59→13:30)
[2020-05-07] MEDS: Gabapentin 300 MG CAP PO SCH ×2 (11:00→20:33)
[2020-05-07] MEDS: Multivitamin W/ Minerals 1 TAB PO SCH (11:00)
[2020-05-07] MEDS: Folic Acid 1 MG TAB PO SCH (11:00)
[2020-05-07] MEDS: Thiamine 100 MG TAB PO SCH (11:00)
[2020-05-07] MEDS: traMADol HCl 50 MG TAB PO PRN ×3 (13:30→22:34)
--- NOTE | 2020-05-07 13:58 | ULT ---
Sonographic guided paracentesis HISTORY: Symptomatic ascites. FINDINGS: After explaining the procedure and answering all questions, sonographic survey showed a mod erate amount of free fluid throughout the abdomen. Sterile technique, buffered local anesthesia, sonographic guidance, and a left lower quadrant approac h were used to carefully advance a 19-gauge Yueh needle and catheter into the free fluid. Catheter was left to drain a total volume of 3.7 mm. The liquid. Catheter was removed with minimal fluid remaining. Patient tolerated the procedure well and was retur mariam in improved condition. IMPRESSION : Technically successful sonographic guided paracentesis 3.7 L.
[2020-05-07 14:38] LABS: Alpha-1-Antitrypsin 255 mg/dL (101-187)
--- NOTE | 2020-05-07 16:37 | PRG ---
DATE OF SERVICE: 05/07/2020 SUBJECTIVE: Ms. Montanez has not had a bowel movement a day and a half now, having worsening of neuropathic symptoms in lower extremities. She had a paracentesis and vital signs are normal except for some tachycardia. OBJECTIVE: VITAL SIGNS: She is afebrile. Awake, alert. LUNGS: Clear. ABDOMEN: Less distended and less tender. EXTREMITIES: Marked tenderness in the lower extremities, which is hyperalgesia. LABORATORY DATA: Sodium 130, creatinine 0.64, bilirubin 4.7, AST 48, ALT 24, alkaline phosphatase 166, albumin 2.0. Pathology of the ascitic fluid did not show any malignancy. ASSESSMENT AND DISCUSSION: Hypertension; fibromyalgia; chronic liver disease of uncertain etiology with likely cirrhosis; portal hypertension; ascites; clostridium difficile colitis, improving; neuropathy, probably associated with demyelination ; and cirrhosis. The issue of the ovarian mass again the radiologist established that this is not intrinsically ovarian mass, but it is a fibroid that is pedunculated towards the left ovary giving the impression of an ovarian mass. The tumor marker elevation is probably due to the liver disease. There are conflicting accounts regarding her etoh intake as discussed by dr. Sunshine. Job ID: [id number] [facility]
[2020-05-07 16:53] LABS: RBC Count-Automated (BF) 487 /cu.mm; WBC/Nucleated-Auto (BF) 113 uL
[2020-05-07 17:17] LABS: BF Color Yellow; Body Fluid Source Paracentesis Fluid; Clarity Hazy (Clear); Tube # EDTA
[2020-05-07 17:20] LABS: BF Segmented Neutrophils 12 %; Cell Count Non Hematic 44 %; Eosinophils 1 %; Lymphocytes 43 %
--- NOTE | 2020-05-07 18:09 | PRG ---
DATE OF SERVICE: 05/07/2020 SUBJECTIVE: Ms. Montanez states her belly hurts because she states she has had some more fluid taken out of it. Apparently, she did see a general doctor in [place]. She reports that doctor has called her twice on Tuesday for results, but she has not called them back. When asked about her fluid in the belly, she understands she has chronic liver disease, but not cirrhosis. She states that she only drinks alcohol socially. When asked about notation in the chart about her drinking shots of vodka and Sprite 3 to 4 times a week in the past, she is more vague on that. She is eating. She has had less diarrhea today. OBJECTIVE: VITAL SIGNS: Pulse is 106, temperature is 98.3, blood pressure 144/88. No weight today. In's and out's incomplete yesterday, 560 and 300. GENERAL: She is resting comfortably in bed. She is in no distress. HEENT: She is icteric. LUNGS: Clear. HEART: Regular rate and rhythm without clicks or murmurs. ABDOMEN: Protuberant with shifting dullness and fluid waves. No rebound or guarding. EXTREMITIES: Trace edema. LABORATORY DATA: White count 21,000, hemoglobin 9.2, platelet count 189, MCV 110. INR 2.1 on 05/05. Sodium 130, potassium 3.6, BUN and creatinine are 16 and 0.6, protein 4.7, AST 48, ALT 24, alkaline phosphatase 166. AFP was 2.4 on admission. Alpha-1 antitrypsin normal. Ammonia was normal on admission. Iron studies normal with smooth muscle antibody and PRATIK were normal. negative. Body fluid on 05/03 showed 374 white blood cells, 23% segs. Stool was positive for C difficile toxin antigen. CAT scan from 05/03/2020 liver apparently looked normal on that study. MRI on 03/28/2020 of the abdomen, enlarged liver with fat. Previous fluid studies have shown no albumin has been drawn. Total protein has been very low at less than 1. ASSESSMENT: 1. Clostridium difficile colitis. She is on treatment for that now. 2. Ascites. This seems to be portal hypertensive, although there is no serum ascitic albumin gradient calculated. Her albumin is less than 1. We will try to add on albumin to the fluid. It seems that cytology has been negative for a couple of times on that fluid or at least once on that fluid. 3. Adnexal mass. This seems to be, in retrospect, a pedunculated fibroid. She has high tumor markers including a CA-125 of 3000, CA-19-9 of . These tumor markers are unreliable and ascites and portal hypertension; however, a little bit higher than what we typically see. 4. Portal hypertensive liver disease. This seems to be alcohol-related. I do not see a ceruloplasmin and one needs to be ordered. We will go ahead and order that. This would be a consideration for Lux's disease as cause of her liver disease. She is vague on alcohol intake, although the pattern of liver function test elevation would go along with that as well. Numbers were much lower than when she was here in March. She would benefit from thiamine, multivitamin, and albumin daily. We will start low-dose diuretics as well. We will go and follow along with those as well. Clostridium difficile will not accelerate them right now. If albumin goes less than 2, she would probably benefit from some albumin. Job ID: [id number]
[2020-05-07] MEDS: Famotidine 20 MG TAB PO SCH (20:33)
--- NOTE | 2020-05-07 22:01 | PDOC.HOSPP ---
- Subjective Encounter Date: 05/07/20 Encounter Time: 12:00 Subjective: Patient was seen and examined in bed. She had gone down for paracentesis and over 3 L was removed. Bowel movements currently reduced to 2 today She feels less bloated however still has some pain. Also have ongoing pain in her legs bilaterally - Objective Vital Signs & Weight: Vital Signs (12 hours) Temp Pulse Resp BP BP Pulse Ox 05/07/20 20:22 97.9 F 110 H 20 148/90 H 98 05/07/20 20:00 148/90 H 98 05/07/20 15:44 98.3 F 106 H 16 144/88 H 97 05/07/20 11:25 97.7 F 107 H 16 137/84 98 Weight Admit Weight 146 lb 12.8 oz Weight 146 lb 12.8 oz Most Recent Monitor Data Heart Rate from ECG 101 NIBP 141/83 NIBP BP-Mean 102 Respiration from ECG 29 SpO2 100 I&O: 05/06/20 05/07/20 05/08/20 06:59 06:59 06:59 Intake Total 560 510 Output Total 300 Balance 260 510 Result Diagrams: 05/10/20 05:26 05/11/20 10:16 Hospitalist ROS - Medication Medications: Active Medications Generic Name Dose Route Start Last Admin Trade Name Freq PRN Reason Stop Dose Admin Hydrocodone Bitart/Acetaminophen 1 tab 05/04/20 16:29 05/07/20 20:33 [place] 5/325 PO 1 tab Q4H PRN Administration Pain Famotidine 20 mg 05/07/20 21:00 05/07/20 20:33 Pepcid PO 20 mg BID SHUKRI Administration Folic Acid 1 mg 05/05/20 09:00 05/07/20 11:00 Folvite PO 1 mg DAILY SHUKRI Administration Furosemide 20 mg 05/07/20 09:00 05/07/20 13:30 Lasix PO 20 mg 0900,1400 SHUKRI Administration Gabapentin 300 mg 05/05/20 21:00 05/07/20 20:33 Neurontin PO 300 mg BID SHUKRI Administration Metronidazole 500 mg/ Device 100 mls @ 100 mls/hr 05/05/20 22:00 05/07/20 20: 34 IVPB 100 mls Q8HR SHUKRI Administration Iron/Minerals/Multivitamins 1 tab 05/05/20 09:00 05/07/20 11:00 Theragran M PO 1 tab DAILY SHUKRI Administration Sertraline HCl 50 mg 05/04/20 09:00 05/07/20 10:59 Zoloft PO 50 mg DAILY SHUKRI Administration Thiamine HCl 100 mg 05/05/20 09:00 05/07/20 11:00 Thiamine PO 100 mg DAILY SHUKRI Administration Tramadol HCl 50 mg 05/04/20 09:57 05/07/20 18:23 Ultram PO 50 mg Q4H PRN Administration Moderate to Severe Pain (6-10) Vancomycin HCl 250 mg 05/07/20 18:00 05/07/20 17:33 First Vancomycin PO 250 mg Q6HR SHUKRI Administration - Exam General - other findings: Patient awake and alert no acute distress. Heart - other findings: S1-S2 present. No murmurs gallops or rubs. Respiratory - other findings: Chest clear bilaterally. Gastrointestinal - other findings: Abdomen distended, tender bowel sounds present. Neurological: no new deficit Psychiatric: A&O x 3 Hosp A/P - Plan This is a 49-year-old female with a history of left ovarian tumor with concerns for malignancy, ascites, hepatitis concerns for cirrhosis who was admitted on account of worsening ascites, abdominal pain diarrhea and bilateral leg pain. Initial diagnosis was for concerns for severe sepsis. She was admitted to IMCU for close monitoring. She is now C. difficile positive. COVID is negative Ongoing treatment for C. difficile with vancomycin and Flagyl Severe sepsis Secondary to C. difficile colitis Resolving C. difficile colitis Stool significantly reduced Continue vancomycin and Flagyl We will appreciate GI input. Staph aureus in stool. Possible staph aureus colitis as well We will call ID to help manage thisdoes not recommend antibiotic. Hepatitis Unclear etiology possibly alcoholic. Patient denies alcohol use however this information has been contradictory Hepatitis panel is negative GI on boardworking up from other causes of hepatitis including autoimmune hepatitis. Follow-up on labs. Ascites Unclear etiologyfollowing up on [employer] evaluation to rule out malignancy. Indeed CA 19.9, CA 153, CEA 125 will significantly elevated on her last admission. Ascitic fluid not suggestive of SBP Had 2.5 L removed on day of admission. We will start her spironolactone and reduce dose of Lasix on account of hypokalemia. Left adnexal mass Unclear whether this is malignant Requesting records from [employer]. Hypokalemia corrected Bilateral leg and foot painappears neuropathic This has been chronic and etiology is unclear. Patient does not appear to have diabetes thyroid disease B12 was within normal limitsthousand 300 about a month ago Will assess if [place] improve the painstart gabapentin Continue monitoring. Coagulopathy Monitor INR Likely due to liver cirrhosis Possible UTI No symptoms however has nitrates and WBCs Culture appears to be growing mixed organismswe will follow-up on that. We will hold antibiotics for now on account of C. difficile which could be worsening. Continue monitoring VTE prophylaxisstart Lovenox today
[2020-05-08] MEDS: metroNIDAZOLE 500 MG in Premix Bag 1 BAG IVPB SCH ×3 (05:51→20:15)
[2020-05-08] MEDS: Vancomycin HCl 25 MG/ML Oral PO SCH ×4 (05:51→23:14)
[2020-05-08] MEDS: HYDROcodone/Acetaminophen 5/325 mg Tablet PO PRN ×4 (05:57→20:15)
[2020-05-08 07:15] LABS: #Basophils 0.1 thou/uL (0.0-0.2); #Eosinphils 0.8 thou/uL (0.0-0.7); #Lymphocytes 2.4 thou/uL (1.20-3.40); #Monocytes 1.6 thou/uL (0.11-0.59); #Neutrophils 14.7 thou/uL (1.40-6.50); %Basophils 0.7 % (0.0-1.0); %Eosinophils 4.3 % (0.0-10.0); %Lymphocytes 12.4 % (21.0-51.0); %Monocytes 8.2 % (0.0-10.0); %Neutrophils 74.4 % (42.0-75.0); Hemoglobin 9.4 g/dL (12.0-16.0); Mean Corpuscular HGB CONC 31.8 g/dL (32.0-36.0); Mean Corpuscular Hemoglobin 35.3 pg (27.0-31.0); Mean Platelet Volume 8.7 fL (7.4-10.4); Platelet Count 208 thou/uL (130-400); RBC Distribution Width 14.4 % (11.5-14.5); Red Blood Cell (RBC) Count 2.65 mill/uL (4.20-5.40); White Blood Cell (WBC) Count 19.7 thou/uL (4.8-10.8)
[2020-05-08 07:35] LABS: ALT (SGPT) 22 U/L (8-55); AST (SGOT) 34 U/L (5-34); Alkaline Phosphatase 159 U/L (40-110); Anion Gap 11 mmol/L (10-20); BUN (Urea Nitrogen) 15 mg/dL (7.0-18.7); Bilirubin, Total 4.2 mg/dL (0.2-1.2); Calc. Creatinine Clearance 112 mL/min (70-130); Calcium 7.5 mg/dL (7.8-10.44); Carbon Dioxide 21 mmol/L (22-29); Chloride 103 mmol/L (98-107); Estimated GFR-MDRD Greater than 90; Globulin 3.6 g/dL (2.4-3.5); Glucose 108 mg/dL (70-105); Magnesium 1.7 mg/dL (1.6-2.6); Phosphorus 3.4 mg/dL (2.3-4.7); Potassium 3.6 mmol/L (3.5-5.1); Protein, Total 5.6 g/dL (6.0-8.3); Sodium 131 mmol/L (136-145)
[2020-05-08] MEDS ORDERED: Magnesium 2 GM/50 ML 2 GM in Premix Bag 1 BAG IVPB SCH (07:45)
[2020-05-08] MEDS: Multivitamin W/ Minerals 1 TAB PO SCH (10:16)
[2020-05-08] MEDS: Folic Acid 1 MG TAB PO SCH (10:16)
[2020-05-08] MEDS: Famotidine 20 MG TAB PO SCH ×2 (10:16→20:14)
[2020-05-08] MEDS: Gabapentin 300 MG CAP PO SCH ×2 (10:17→20:15)
[2020-05-08] MEDS: Thiamine 100 MG TAB PO SCH (10:18)
[2020-05-08] MEDS: Furosemide 20 MG TAB PO SCH ×2 (10:18→14:15)
--- NOTE | 2020-05-08 15:40 | PDOC.HOSPP ---
- Subjective Encounter Date: 05/08/20 Encounter Time: 13:00 Subjective: Patient was seen and examined in bed. She complains of abdominal distention and pain in on going into the feet bilaterally. She denied any chest pain shortness of breath. The whole however she feels better. - Objective Vital Signs & Weight: Vital Signs (12 hours) Temp Pulse Resp BP BP Pulse Ox 05/08/20 11:06 97.5 F L 102 H 18 116/62 97 05/08/20 07:15 98.3 F 97 17 114/72 95 05/08/20 05:00 98.1 F 102 H 20 115/73 95 Weight Admit Weight 146 lb 12.8 oz Weight 146 lb 12.8 oz Most Recent Monitor Data Heart Rate from ECG 101 NIBP 141/83 NIBP BP-Mean 102 Respiration from ECG 29 SpO2 100 I&O: 05/07/20 05/08/20 05/09/20 06:59 06:59 06:59 Intake Total 1530 Balance 1530 Result Diagrams: 05/08/20 07:04 05/08/20 07:04 Hospitalist ROS - Medication Medications: Active Medications Generic Name Dose Route Start Last Admin Trade Name Freq PRN Reason Stop Dose Admin Hydrocodone Bitart/Acetaminophen 1 tab 05/04/20 16:29 05/08/20 14:15 [place] 5/325 PO 1 tab Q4H PRN Administration Pain Famotidine 20 mg 05/07/20 21:00 05/08/20 10:16 Pepcid PO 20 mg BID SHUKRI Administration Folic Acid 1 mg 05/05/20 09:00 05/08/20 10:16 Folvite PO 1 mg DAILY SHUKRI Administration Furosemide 20 mg 05/07/20 09:00 05/08/20 14:15 Lasix PO 20 mg 0900,1400 SHUKRI Administration Metronidazole 500 mg/ Device 100 mls @ 100 mls/hr 05/05/20 22:00 05/08/20 14: 15 IVPB 100 mls Q8HR SHUKRI Administration Iron/Minerals/Multivitamins 1 tab 05/05/20 09:00 05/08/20 10:16 Theragran M PO 1 tab DAILY SHUKRI Administration Sertraline HCl 50 mg 05/04/20 09:00 05/08/20 10:16 Zoloft PO 50 mg DAILY SHUKRI Administration Thiamine HCl 100 mg 05/05/20 09:00 05/08/20 10:18 Thiamine PO 100 mg DAILY SHUKRI Administration Tramadol HCl 50 mg 05/04/20 09:57 05/07/20 22:34 Ultram PO 50 mg Q4H PRN Administration Moderate to Severe Pain (6-10) Vancomycin HCl 250 mg 05/07/20 18:00 05/08/20 11:06 First Vancomycin PO 250 mg Q6HR SHUKRI Administration - Exam General - other findings: Patient is in bed, in no acute distress. Heart - other findings: S1-S2 present. No murmurs gallops or rubs. Respiratory - other findings: Breath sounds are decreased bilaterally. No wheezes Gastrointestinal - other findings: Grossly distended and tense. Mild tenderness generally. Bowel sounds pres Neurological: cranial nerve grossly intact, no new deficit Hosp A/P - Plan This is a 49-year-old female with a history of left ovarian tumor with concerns for malignancy, ascites, hepatitis concerns for cirrhosis who was admitted on account of worsening ascites, abdominal pain diarrhea and bilateral leg pain. Initial diagnosis was for concerns for severe sepsis. She was admitted to IMCU for close monitoring. She is now C. difficile positive. COVID is negative Ongoing treatment for C. difficile with vancomycin and Flagyl Severe sepsis Secondary to C. difficile colitis Resolving C. difficile colitis Stool significantly reduced Continue vancomycin and Flagyl We will appreciate GI input. Staph aureus in stool. Possible staph aureus colitis as well We will call ID to help manage thisdoes not recommend antibiotic. Hepatitis Unclear etiology possibly alcoholic. Patient denies alcohol use however this information has been contradictory Hepatitis panel is negative GI on boardwaking up from other causes of hepatitis including autoimmune hepatitis. Follow-up on labs. Ascites Unclear etiologyfollowing up on [employer] evaluation to rule out malignancy. Indeed CA 19.9, CA 153, CEA 125 will significantly elevated on her last admission. Ascitic fluid not suggestive of SBP Had 2.5 L removed on day of admission. We will start her spironolactone and reduce dose of Lasix on account of hypokalemia. Left adnexal mass Unclear whether this is malignant Requesting records from [facility]. Hypokalemia corrected Bilateral leg and foot painappears neuropathic This has been chronic and etiology is unclear. Patient does not appear to have diabetes thyroid disease B12 was within normal limitsthousand 300 about a month ago Will assess if [place] improve the pain Gabapentin seems to have improved the pain however still persistent. Will increase to 600 mg twice daily from 300. Continue monitoring. Coagulopathy Monitor INR Likely due to liver cirrhosis Possible UTI No symptoms however has nitrates and WBCs Culture appears to be growing mixed organismswe will follow-up on that. We will hold antibiotics for now on account of C. difficile which could be worsening. Continue monitoring VTE prophylaxisstart Lovenox today
--- NOTE | 2020-05-08 21:24 | PRG ---
DATE OF SERVICE: 05/08/2020 REASON FOR CONSULTATION: Elevated LFTs, ascites, and Clostridium difficile colitis. SUBJECTIVE: Today, the patient states that her abdomen still continues to have some discomfort and the generalized abdomen, but otherwise she states that she is feeling better when compared to previous. She also states that she has had approximately one semi-solid bowel movement today with no difficulty with defecation. Otherwise, she denies any nausea, vomiting, fevers, chills, hematemesis, melena, or hematochezia. OBJECTIVE: VITAL SIGNS: Temperature 97.8, pulse 100, blood pressure 136/84, respiratory rate 17, and saturating 98% on room air. GENERAL: The patient is lying in bed, in no acute distress. Alert and oriented x4. CARDIOVASCULAR: Tachycardic rate, but regular rhythm. RESPIRATORY: Clear to auscultation bilaterally, ABDOMEN: Normoactive bowel sounds. Mildly tense to palpation. Moderate abdominal distention with positive shifting dullness. Tenderness to palpation in the periumbilical region. EXTREMITIES: No cyanosis, clubbing, or edema. LABORATORY DATA: CBC with a white blood cell count of 19.7, hemoglobin 9.4, hematocrit 29.4, and platelets 208. Chemistry with a sodium of 131, potassium 3.6, chloride 103, CO2 of 21, BUN 15, creatinine 0.65, glucose 108, AST 34, ALT 22, alkaline phosphatase 159, total bilirubin 4.2, and calculated MELD score of 25. IMAGING DATA: No current GI imaging is available for review. ASSESSMENT AND PLAN: 1. Clostridium difficile colitis, slowly resolving while on oral vancomycin therapy. We will continue this treatment for a total duration of 14 days. 2. Ascites. The patient is presenting with increased abdominal ascites with no evidence of spontaneous bacterial peritonitis on paracentesis. Her fluid protein is less than 1, making portal hypertension more likely; however, with her chronic alcohol abuse history, elevated total bilirubin, elevated MELD score and elevated LFTs in the past, cirrhosis cannot be ruled out at this time. 3. Adnexal mass. The patient is presenting with imaging showing the presence of a large adnexal mass on CT and including tumor markers of CA-125 and CA-19-9 that are significantly elevated concerning for the presence of malignant process. DIRECTOR OF VIDEO ANALYTICS evaluation is indicated at this time. RECOMMENDATIONS: 1. We would consider restarting the patient on spironolactone 50 mg daily as part of treatment for her ascites. We would hold on furosemide administration for now given hypokalemia in the recent past. 2. Continue oral vancomycin as part of treatment for Clostridium difficile colitis. 3. We would consider re-consultation of It Consulting Director Service for re-evaluation of this adnexal mass. 4. We would follow up on ceruloplasmin for possible other underlying liver pathology that may be contributing to her current clinical situation. 5. We will continue to follow. Please call with any questions. Job ID: [id number]
[2020-05-08] MEDS: traMADol HCl 50 MG TAB PO PRN (22:38)
[2020-05-09] MEDS: HYDROcodone/Acetaminophen 5/325 mg Tablet PO PRN ×5 (01:00→21:28)
[2020-05-09] MEDS: Vancomycin HCl 25 MG/ML Oral PO SCH ×3 (05:48→17:59)
[2020-05-09] MEDS: metroNIDAZOLE 500 MG in Premix Bag 1 BAG IVPB SCH (05:48)
[2020-05-09] MEDS: Famotidine 20 MG TAB PO SCH ×2 (08:43→21:28)
[2020-05-09] MEDS: Multivitamin W/ Minerals 1 TAB PO SCH (08:43)
[2020-05-09] MEDS: traMADol HCl 50 MG TAB PO PRN ×2 (08:43→13:22)
[2020-05-09] MEDS: Thiamine 100 MG TAB PO SCH (08:44)
[2020-05-09] MEDS: Folic Acid 1 MG TAB PO SCH (08:45)
[2020-05-09] MEDS: Gabapentin 300 MG CAP PO SCH ×2 (08:45→21:28)
[2020-05-09] MEDS: Furosemide 20 MG TAB PO SCH ×2 (08:45→13:22)
[2020-05-09] MEDS ORDERED: Spironolactone 100 MG TAB PO SCH (11:30)
--- NOTE | 2020-05-09 15:11 | PRG ---
DATE OF SERVICE: 05/09/2020 REASON FOR CONSULTATION: Elevated LFTs, ascites, and Clostridium difficile colitis. SUBJECTIVE: Today, the patient states that her abdominal pain is improved when compared to even yesterday stating that it is approximately 2 to 3/10 at the current time. However, she has had significant increase in pain in her feet and on the palms of her hands with both light and moderate palpation. She further adds that even putting the bed sheets on these areas causes significant discomfort. Otherwise, she stated that she had approximately 1 semi-solid bowel movement earlier today with no difficulty with defecation. Currently, she denies any nausea, vomiting, fevers, chills, hematemesis, melena, or hematochezia. OBJECTIVE: VITAL SIGNS: Temperature 98.3, pulse 107, blood pressure 120/78, respiratory rate 20, saturating 98% on room air. GENERAL: The patient was lying in bed, in no acute distress. Alert and oriented x4. CARDIOVASCULAR: Tachycardic rate, but regular rhythm. RESPIRATORY: Clear to auscultation bilaterally. ABDOMEN: Normoactive bowel sounds. Soft, mildly tense to palpation with only moderate abdominal distention, tenderness to palpation in the periumbilical region. EXTREMITIES: No cyanosis, clubbing, or edema. LABORATORY DATA: No current studies are available for review. IMAGING DATA: No current GI imaging is available for review. ASSESSMENT AND PLAN: 1. Clostridium difficile colitis, slowly resolving while on oral vancomycin therapy. Would contribute treatment with this medication for a total duration of 14 days. However, with the addition of metronidazole, may be creating neuropathy in both her feet and her hands creating significant discomfort. Given her response to treatment thus far, I would discontinue the metronidazole. 2. Ascites. The patient is presenting with abdominal ascites with no evidence of SBP on paracentesis. Current etiology of her ascites is in question, but with a fluid protein less than 1, portal hypertension is more likely with fluid albumin pending at this time. With her history of chronic alcohol abuse, elevated total bilirubin, elevated MELD score, and elevated LFTs in the past, cirrhosis is likely. Currently, tolerating furosemide 40 mg daily, but not having significant urinary output. Per the patient, we will consider adding spironolactone to her regimen. 3. Adnexal mass. The patient is presenting with presence of a large adnexal mass on CT with elevated tumor markers. 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 RECOMMENDATIONS: 1. Would restart the patient on spironolactone 100 mg daily as part of treatment of her ascites and placing the spironolactone and furosemide in a 5:2 ratio in order to prevent hypo or hyperkalemia. 2. Continue oral vancomycin q.i.d., but discontinue IV metronidazole for treatment of Clostridium difficile colitis. 3. Would follow up on fluid albumin and serum ceruloplasmin for other underlying liver pathology. 4. If the patient is able to tolerate adequate diuretic therapy with improving pain and solidification of her stool, she could potentially be discharged to home with outpatient in the GI Clinic. We will continue to follow while the patient is inpatient. Please call with any questions. Job ID: [id number]
--- NOTE | 2020-05-09 15:47 | PDOC.HOSPP ---
- Subjective Encounter Date: 05/09/20 Encounter Time: 15:00 Subjective: Patient was seen and examined in bed. She looked much improved. She was eating. Notes ongoing abdominal pain but improved. Pending lower extremity has also improved. Diarrhea resolved. - Objective Vital Signs & Weight: Vital Signs (12 hours) Temp Pulse Resp BP BP Pulse Ox 05/09/20 08:00 120/78 98 05/09/20 04:00 98.3 F 107 H 20 120/78 98 Weight Admit Weight 146 lb 12.8 oz Weight 146 lb 12.8 oz Most Recent Monitor Data Heart Rate from ECG 101 NIBP 141/83 NIBP BP-Mean 102 Respiration from ECG 29 SpO2 100 I&O: 05/08/20 05/09/20 05/10/20 06:59 06:59 06:59 Intake Total 1530 1160 Balance 1530 1160 Result Diagrams: 05/08/20 07:04 05/08/20 07:04 Hospitalist ROS - Medication Medications: Active Medications Generic Name Dose Route Start Last Admin Trade Name Freq PRN Reason Stop Dose Admin Hydrocodone Bitart/Acetaminophen 1 tab 05/04/20 16:29 05/09/20 11:09 Tok 5/325 PO 1 tab Q4H PRN Administration Pain Famotidine 20 mg 05/07/20 21:00 05/09/20 08:43 Pepcid PO 20 mg BID SHUKRI Administration Folic Acid 1 mg 05/05/20 09:00 05/09/20 08:45 Folvite PO 1 mg DAILY SHUKRI Administration Furosemide 20 mg 05/07/20 09:00 05/09/20 13:22 Lasix PO 20 mg 0900,1400 SHUKRI Administration Gabapentin 600 mg 05/08/20 21:00 05/09/20 08:45 Neurontin PO 600 mg BID SHUKRI Administration Iron/Minerals/Multivitamins 1 tab 05/05/20 09:00 05/09/20 08:43 Theragran M PO 1 tab DAILY SHUKRI Administration Sertraline HCl 50 mg 05/04/20 09:00 05/09/20 08:43 Zoloft PO 50 mg DAILY SHUKRI Administration Thiamine HCl 100 mg 05/05/20 09:00 05/09/20 08:44 Thiamine PO 100 mg DAILY SHUKRI Administration Tramadol HCl 50 mg 05/04/20 09:57 05/09/20 13:22 Ultram PO 50 mg Q4H PRN Administration Moderate to Severe Pain (6-10) Vancomycin HCl 250 mg 05/07/20 18:00 05/09/20 12:09 First Vancomycin PO 250 mg Q6HR SHUKRI Administration - Exam General - other findings: Patient awake and alert. No acute distress. Heart - other findings: S1-S2 present. No murmurs gallops or rubs. Respiratory - other findings: And adequate bilaterally Gastrointestinal - other findings: Distended, mildly tender Extremities - other findings: Bilateral tenderness. 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 Initial diagnosis was for concerns for severe sepsis. She was admitted to [facility] for close monitoring. She is now C. difficile positive. COVID is negative Ongoing treatment for C. difficile with vancomycin and Flagyl and as needed paracentesis, Lasix and spironolactone for ascites. Severe sepsis Secondary to C. difficile colitis Resolving Diarrhea secondary t0 C. difficile colitis Diarrhea resolvedGeneral improved Continue vancomycin and Flagyl We will appreciate GI input. Staph aureus in stool. Possible staph aureus colitis as well We will call ID to help manage thisdoes not recommend antibiotic. Hepatitis Unclear etiologypossibly alcoholic. Patient denies alcohol use however this information has been contradictory Hepatitis panel is negative GI on boardwaking up from other causes of hepatitis including autoimmune hepatitis. Follow-up on labs. Ascites Unclear etiologyfollowing up on STATION OPERATOR evaluation to rule out malignancy. Indeed CA 19.9, CA 153, CEA 125 will significantly elevated on her last admission. Ascitic fluid not suggestive of SBP Had 2.5 L removed on day of admission. We will start her spironolactone and reduce dose of Lasix on account of hypokalemia. Left adnexal mass Unlikely malignancy Repeat cytology from ascites fluid negative Hypokalemia corrected Reduce dose of Lasix. Bilateral leg and foot painappears neuropathic This has been chronic and etiology is unclear. Patient does not appear to have diabetes thyroid disease B12 was within normal limitsthousand 300 about a month ago Will assess if Tok improve the pain Gabapentin seems to have improved the pain however still persistent. Gabapentin 600 mg twice daily todayincreased dose as needed Continue monitoring. Coagulopathy Monitor INR Likely due to liver cirrhosis Possible UTI No symptoms however has nitrates and WBCs Culture appears to be growing mixed organismswe will follow-up on that. We will hold antibiotics for now on account of C. difficile which could be worsening. Continue monitoring VTE prophylaxisstart Lovenox today
[2020-05-10] MEDS: traMADol HCl 50 MG TAB PO PRN (00:03)
[2020-05-10] MEDS: Vancomycin HCl 25 MG/ML Oral PO SCH ×4 (00:03→16:40)
[2020-05-10] MEDS: HYDROcodone/Acetaminophen 5/325 mg Tablet PO PRN ×5 (01:13→20:22)
[2020-05-10 06:00] LABS: #Basophils 0.2 thou/uL (0.0-0.2); #Eosinphils 0.5 thou/uL (0.0-0.7); #Lymphocytes 2.2 thou/uL (1.20-3.40); #Monocytes 1.4 thou/uL (0.11-0.59); #Neutrophils 13.2 thou/uL (1.40-6.50); %Lymphocytes 12.8 % (21.0-51.0); %Monocytes 7.8 % (0.0-10.0); %Neutrophils 75.5 % (42.0-75.0); Hemoglobin 9.7 g/dL (12.0-16.0); Mean Corpuscular HGB CONC 30.9 g/dL (32.0-36.0); Mean Corpuscular Hemoglobin 34.2 pg (27.0-31.0); Platelet Count 248 thou/uL (130-400); RBC Distribution Width 14.8 % (11.5-14.5); Red Blood Cell (RBC) Count 2.84 mill/uL (4.20-5.40); White Blood Cell (WBC) Count 17.5 thou/uL (4.8-10.8)
[2020-05-10 06:20] LABS: ALT (SGPT) 21 U/L (8-55); AST (SGOT) 40 U/L (5-34); Albumin 2.1 g/dL (3.5-5.0); Alkaline Phosphatase 159 U/L (40-110); Anion Gap 11 mmol/L (10-20); BUN (Urea Nitrogen) 16 mg/dL (7.0-18.7); Bilirubin, Total 3.7 mg/dL (0.2-1.2); Calc. Creatinine Clearance 90 mL/min (70-130); Calcium 7.8 mg/dL (7.8-10.44); Carbon Dioxide 20 mmol/L (22-29); Chloride 101 mmol/L (98-107); Estimated GFR-MDRD 76; Glucose 116 mg/dL (70-105); Magnesium 1.7 mg/dL (1.6-2.6); Potassium 4.1 mmol/L (3.5-5.1); Protein, Total 6.1 g/dL (6.0-8.3); Sodium 128 mmol/L (136-145)
[2020-05-10] MEDS ORDERED: Magnesium 2 GM/50 ML 2 GM in Premix Bag 1 BAG IVPB SCH (06:30)
[2020-05-10] MEDS: Famotidine 20 MG TAB PO SCH ×2 (08:27→20:14)
[2020-05-10] MEDS: Spironolactone 100 MG TAB PO SCH (08:27)
[2020-05-10] MEDS: Folic Acid 1 MG TAB PO SCH (08:27)
[2020-05-10] MEDS: Multivitamin W/ Minerals 1 TAB PO SCH (08:28)
[2020-05-10] MEDS: Thiamine 100 MG TAB PO SCH (08:28)
[2020-05-10] MEDS: Gabapentin 300 MG CAP PO SCH ×2 (08:28→20:14)
[2020-05-10] MEDS: Furosemide 20 MG TAB PO SCH ×2 (08:28→14:32)
--- NOTE | 2020-05-10 13:36 | PDOC.HOSPP ---
- Subjective Encounter Date: 05/10/20 Encounter Time: 10:40 Subjective: Patient is tolerating the diet she still has some loose bowel movements but overall she feels better. She had roughly 3.5 L of ascites removed. third paracentesis. - Objective Vital Signs & Weight: Vital Signs (12 hours) Temp Pulse Resp BP BP Pulse Ox 05/10/20 11:21 98.5 F 100 16 147/92 H 99 05/10/20 08:00 94 L 05/10/20 07:08 98.3 F 92 18 121/75 94 L 05/10/20 04:00 98.2 F 100 18 117/77 96 05/10/20 02:16 108 H 20 136/79 Weight Admit Weight 146 lb 12.8 oz Weight 146 lb 12.8 oz Most Recent Monitor Data Heart Rate from ECG 101 NIBP 141/83 NIBP BP-Mean 102 Respiration from ECG 29 SpO2 100 I&O: 05/09/20 05/10/20 05/11/20 06:59 06:59 06:59 Intake Total 1160 960 Balance 1160 960 Result Diagrams: 05/10/20 05:26 05/10/20 05:26 Hospitalist ROS - Medication Medications: Active Medications Generic Name Dose Route Start Last Admin Trade Name Freq PRN Reason Stop Dose Admin Hydrocodone Bitart/Acetaminophen 1 tab 05/04/20 16:29 05/10/20 12:07 [place] 5/325 PO 1 tab Q4H PRN Administration Pain Diazepam 5 mg 05/05/20 04:00 05/10/20 00:03 Valium PO 5 mg Q4H PRN Administration FOR ASE 10 OR GREATER Famotidine 20 mg 05/07/20 21:00 05/10/20 08:27 Pepcid PO 20 mg BID SHUKRI Administration Folic Acid 1 mg 05/05/20 09:00 05/10/20 08:27 Folvite PO 1 mg DAILY SHUKRI Administration Furosemide 20 mg 05/07/20 09:00 05/10/20 08:28 Lasix PO 20 mg 0900,1400 SHUKRI Administration Gabapentin 600 mg 05/08/20 21:00 05/10/20 08:28 Neurontin PO 600 mg BID SHUKRI Administration Iron/Minerals/Multivitamins 1 tab 05/05/20 09:00 05/10/20 08:28 Theragran M PO 1 tab DAILY SHUKRI Administration Sertraline HCl 50 mg 05/04/20 09:00 05/10/20 08:27 Zoloft PO 50 mg DAILY SHUKRI Administration Spironolactone 100 mg 05/10/20 08:00 05/10/20 08:27 Aldactone PO 100 mg QAM-WM SHUKRI Administration Thiamine HCl 100 mg 05/05/20 09:00 05/10/20 08:28 Thiamine PO 100 mg DAILY SHUKRI Administration Tramadol HCl 50 mg 05/04/20 09:57 05/10/20 00:03 Ultram PO 50 mg Q4H PRN Administration Moderate to Severe Pain (6-10) Vancomycin HCl 250 mg 05/07/20 18:00 05/10/20 12:04 First Vancomycin PO 250 mg Q6HR SHUKRI Administration - Exam General Appearance: NAD, awake alert Eye: PERRL ENT: normocephalic atraumatic Neck: supple Respiratory: CTAB Gastrointestinal: distended Extremities: 1+ LE edema Neurological: cranial nerve grossly intact, no focal deficits Psychiatric: A&O x 3 Hosp A/P - Plan Hyponatremia sepsis Secondary to C. difficile colitis Resolving Diarrhea secondary t0 C. difficile colitis -vancomycin and Flagyl - appreciate GI input. Staph aureus in stool. Possible staph aureus colitis as well- Hepatitis Unclear etiologypossibly alcoholic.- Hepatitis panel is negative GI on boardwaking up from other causes of hepatitis including autoimmune hepatitis. Follow-up on labs.-----AFP --insig. -other labs reviewd - as below Ascites - Coagulopathy Portal hypertension Alcoholic cirrhosis Unclear etiologyfollowing up on GOLF COURSE LABORER evaluation to rule out malignancy. Indeed CA 19.9, CA 153, CEA 125 will significantly elevated on her last admission. Ascitic fluid not suggestive of SBP Had 2.5 L removed on day of admission. We will start her spironolactone and reduce dose of Lasix on account of hypokalemia. Left adnexal mass Unlikely malignancy? Repeat cytology from ascites fluid negative Hypokalemia corrected Reduce dose of Lasix. Bilateral leg and foot painappears neuropathic This has been chronic and etiology is unclear. Patient does not appear to have diabetes thyroid disease B12 was within normal limits Gabapentin 600 mg twice daily todayincreased dose as needed Possible UTI No symptoms however has nitrates and WBCs Culture appears to be growing mixed organismscontaminant UA --cipro will cover for UTI Fibroid uterus Status post remote cholecystectomy Left adnexal mass with CEA 125 will significantly elevated on her last admission. -INTERMODAL TRUCK DRIVER consult placed. - VTE prophylaxisstart Lovenox today
--- NOTE | 2020-05-10 16:26 | PRG ---
DATE OF SERVICE: 05/10/2020 REASON FOR CONSULTATION: Elevated LFTs, ascites with probable cirrhosis, and Clostridium difficile colitis. SUBJECTIVE: Since discontinuation of the metronidazole yesterday, she states that her hands are no longer as painful as they were yesterday. However, she continues to have increased swelling/edema in her feet with continued pain with both light palpation and with ambulation. She adds that she had approximately one semi-solid bowel movement earlier today with no difficulty with defecation. Otherwise, she denies any nausea, vomiting, fevers, chills, abdominal pain, hematemesis, melena, or hematochezia. OBJECTIVE: VITAL SIGNS: Temperature 97.4, pulse 112, blood pressure 151/98, respiratory rate 16, and saturating 99% on room air. GENERAL: The patient was sitting at bedside, in no acute distress. Alert and oriented x4. CARDIOVASCULAR: Tachycardic rate, but regular rhythm. RESPIRATORY: Clear to auscultation bilaterally. ABDOMEN: Normoactive bowel sounds. Soft and nontender. [id number] distention. EXTREMITIES: No cyanosis or clubbing. 1+/2+ pedal edema bilaterally. LABORATORY DATA: CBC with a white blood cell count of 17.5, hemoglobin 9.7, hematocrit 31.4, and platelets 248. Chemistry with a sodium of 128, potassium 4.1, chloride 101, CO2 of 20, BUN 16, creatinine 0.81, and glucose 116. IMAGING DATA: No current GI imaging is available for review. ASSESSMENT AND PLAN: 1. Clostridium difficile colitis, resolving with oral vancomycin therapy as monotherapy. We would hold metronidazole given possible probable neuropathy with administration. 2. Ascites. The patient is presenting with ascites with paracentesis performed during this admission, showing a SAAG ratio greater than 1.1, indicative of portal hypertension. At this time, the most likely etiology would be cirrhosis of the liver secondary to chronic alcohol abuse. Currently tolerating spironolactone 100 mg daily and furosemide 40 mg daily. 3. Adnexal mass. The patient presenting with a large adnexal mass on CT with elevated tumor markers. GARNISHER has been consulted for evaluation. RECOMMENDATIONS: 1. Would continue the patient on spironolactone 100 mg daily and furosemide 40 mg daily and assess for response and/or kidney injury. 2. Continue oral vancomycin q.i.d. for a total duration of therapy 14 days. 3. If the patient is able to tolerate adequate diuretic therapy with improving pain and solidification of her stool, she could be potentially discharged to home with followup for her cirrhosis in the outpatient GI Clinic. We will sign off at this time. Please call with any questions. Job ID: [id number]
--- NOTE | 2020-05-10 23:22 | CON ---
DATE OF CONSULTATION: 05/10/2020 REASON FOR CONSULTATION: Adnexal mass. HISTORY OF PRESENT ILLNESS: The patient is a 49-year-old female, history of hypertension and left adnexal mass, who was recently diagnosed with Left adnexal mass and ascites at a hospitalization in March of 2020 and was discharged on 04/04/20. She initially presented for worsening abdominal pain and distention. Patient's report and previous records reviewed. Patient was found to have ascites and a left adnexal mass on an abdomen and pelvis CT performed on 03/28/20. At that time, a CA 15- 3 was 81.1 and a CA-125 was 3417. A subsequent MRI of the pelvis performed on demonstrated a multi-fibroid uterus. Suspected left adnexal lesion. MRI performed during same hospitalization characterized the mass as most likely a large pedunculated subserosal fibroid. The right adnexal was normal appearing. The CARBIDE GRINDER, Dr. Luo, on-call was consulted, who reviewed the patient's case during that hospitalization and had recommended to follow up with Vasyl Tinajero in [place] or Dr. Isamar Wilcox in the [place] for further Parachute Folder Onc workup as an outpatient. Patient was ultimately discharged home to follow up. Patient states she followed up with Dr. Villalpando, PROCUREMENT COORDINATOR/ONC, in [place]. She states that he performed lab work on her and told her that he did not have a high suspicion for malignancy. Since that time, patient has had recurrent abdominal ascites resulting in her to return to the ED for current admission. Patient is currently being worked up by GI for hepatic causes of her ascites with suspected cirrhosis possibly due to previous alcohol abuse. Patient has had multiple paracenteses and that did not show any malignant cells. A repeat CT of abdomen and pelvis at current admission did not comment on any increased size of the adnexal mass. Patient is currently doing very well and says after the paracenteses that her symptoms have improved. She states that she plans to follow up with Parachute Folder Onc as an outpatient to continue to work up this suspected fibroid. Patient denies any fevers or chills. Patient states that she transitioned to menopause approximately two years ago. She denies any vaginal bleeding. She denies any night sweats or unintentional weight loss. She stated that hot flashes and postmenopausal symptoms have improved as of late. ROS: Per HPI PHYSICAL EXAMINATION: VITAL SIGNS: Temperature 98.5, pulse 100, respiratory rate 16, O2 saturation 99 % on room air, and blood pressure 147/92. GENERAL APPEARANCE: Resting comfortably in bed. No acute distress, alert and oriented x3. HEENT: PERRLA, extraocular movements intact. No scleral icterus, trachea midline. NECK: Supple. HEART: Regular rate and rhythm. No murmurs. LUNGS: Clear to auscultation bilaterally. ABDOMEN: Soft, diffusely mildly tender to palpation. No fluid wave appreciated. No rebound or guarding. Normoactive bowel sounds. EXTREMITIES: 1+ pitting edema to bilateral shins. NEUROLOGIC: No focal neurologic deficits. [facility] IM[facility]: Paracentesis fluid analysis performed on 05/07/20, demonstrating reactive mesothelial cells, lymphocytes, and neutrophils. No malignant cells identified. CT abdomen and pelvis performed on 05/03/20 demonstrating mural thickening involving the cecum and ascending colon suggestive of colitis. Free intraperitoneal fluid. Fibroid changes seen involving the uterus without comment on size or change from previous CT of abdomen and pelvis. ASSESSMENT AND PLAN: Patient is a 49-year-old female, presented to the hospital for worsening ascites. CARBIDE GRINDER consulted for concern for left adnexal mass. After reviewing the images and labs, it appears that the adnexal mass is a pedunculated fibroid as described on the previous MRI performed at last hospitalization. However, with elevations of CA-125 and CA-15-3, malignancy cannot be ruled out, and it would be recommended the patient follow up with Parachute Folder Onc as an outpatient for further assessment of this. Patient states she has followed up with Dr. Villalpando in [place]. Information was also given for Dr. Isamar Wilcox in the [place] should the patient decide to follow up with her instead. The above plan was discussed with the patient, who voiced understanding and agreement and appropriate followup. Recommend continue current workup for causes of underlying ascites per primary team and GI recommendations. Thank you very much for this consult and appreciate the opportunity to participate in the care of this patient. Contact information for Dr. Isamar Wilcox. Her mobile cellphone is #[phone]. Her work number is [phone] and her fax number is [phone]. Job ID: [id number] [facility]
[2020-05-11] MEDS: Vancomycin HCl 25 MG/ML Oral PO SCH ×4 (00:16→18:05)
[2020-05-11] MEDS: HYDROcodone/Acetaminophen 5/325 mg Tablet PO PRN ×4 (00:21→20:20)
[2020-05-11] MEDS: Furosemide 20 MG TAB PO SCH ×2 (08:26→14:25)
[2020-05-11] MEDS: Multivitamin W/ Minerals 1 TAB PO SCH (08:26)
[2020-05-11] MEDS: Folic Acid 1 MG TAB PO SCH (08:26)
[2020-05-11] MEDS: Gabapentin 300 MG CAP PO SCH ×3 (08:26→20:19)
[2020-05-11] MEDS: Famotidine 20 MG TAB PO SCH ×2 (08:26→20:19)
[2020-05-11] MEDS: Spironolactone 100 MG TAB PO SCH (08:27)
[2020-05-11] MEDS: Thiamine 100 MG TAB PO SCH (08:27)
[2020-05-11] MEDS: traMADol HCl 50 MG TAB PO PRN ×2 (08:39→14:23)
[2020-05-11 10:55] LABS: Anion Gap 13 mmol/L (10-20); BUN (Urea Nitrogen) 17 mg/dL (7.0-18.7); Calc. Creatinine Clearance 89 mL/min (70-130); Carbon Dioxide 22 mmol/L (22-29); Chloride 100 mmol/L (98-107); Estimated GFR-MDRD 75; Glucose 142 mg/dL (70-105); Potassium 3.9 mmol/L (3.5-5.1); Sodium 131 mmol/L (136-145)
[2020-05-11] MEDS ORDERED: Metoprolol Tartrate 5 MG/5 ML VIAL IVP PRN (13:16)
--- NOTE | 2020-05-11 13:19 | PDOC.HOSPP ---
- Subjective Encounter Date: 05/11/20 Encounter Time: 10:10 Subjective: she had 3 loose bowel movement but not watery. She is tachycardic. Patient states that her abdominal distention remains the same and not worsening. Her sodium slightly improved to 131. White count trending down. Later it appeared that she has some abdominal discomfort. Gabapentin increased to 600 mg 3 times a day. She does not need Valium discontinued. NODE JS DEVELOPER consult note reviewed and discussed - Objective Vital Signs & Weight: Vital Signs (12 hours) Temp Pulse Resp BP BP Pulse Ox 05/11/20 11:18 97.7 F 110 H 18 116/76 97 05/11/20 08:00 98.4 F 114 H 20 116/76 134/80 97 05/11/20 04:26 98.6 F 110 H 20 142/93 H 100 Weight Admit Weight 146 lb 12.8 oz Weight 146 lb 12.8 oz Most Recent Monitor Data Heart Rate from ECG 101 NIBP 141/83 NIBP BP-Mean 102 Respiration from ECG 29 SpO2 100 I&O: 05/10/20 05/11/20 05/12/20 06:59 06:59 06:59 Intake Total 960 240 Balance 960 240 Result Diagrams: 05/10/20 05:26 05/11/20 10:16 Hospitalist ROS - Medication Medications: Active Medications Generic Name Dose Route Start Last Admin Trade Name Freq PRN Reason Stop Dose Admin Hydrocodone Bitart/Acetaminophen 1 tab 05/04/20 16:29 05/11/20 11:30 [place] 5/325 PO 1 tab Q4H PRN Administration Pain Famotidine 20 mg 05/07/20 21:00 05/11/20 08:26 Pepcid PO 20 mg BID SHUKRI Administration Folic Acid 1 mg 05/05/20 09:00 05/11/20 08:26 Folvite PO 1 mg DAILY SHUKRI Administration Furosemide 20 mg 05/07/20 09:00 05/11/20 08:26 Lasix PO 20 mg 0900,1400 SHUKRI Administration Iron/Minerals/Multivitamins 1 tab 05/05/20 09:00 05/11/20 08:26 Theragran M PO 1 tab DAILY SHUKRI Administration Sertraline HCl 50 mg 05/04/20 09:00 05/11/20 08:25 Zoloft PO 50 mg DAILY SHUKRI Administration Spironolactone 100 mg 05/10/20 08:00 05/11/20 08:27 Aldactone PO 100 mg QAM-WM SHUKRI Administration Thiamine HCl 100 mg 05/05/20 09:00 05/11/20 08:27 Thiamine PO 100 mg DAILY SHUKRI Administration Tramadol HCl 50 mg 05/04/20 09:57 05/11/20 08:39 Ultram PO 50 mg Q4H PRN Administration Moderate to Severe Pain (6-10) Vancomycin HCl 250 mg 05/07/20 18:00 05/11/20 11:30 First Vancomycin PO 250 mg Q6HR SHUKRI Administration - Exam General Appearance: NAD, awake alert Eye: PERRL ENT: normocephalic atraumatic Neck: supple Heart: RRR Respiratory: CTAB, normal chest expansion Gastrointestinal: soft, normal bowel sounds, distended Neurological: cranial nerve grossly intact, no focal deficits Psychiatric: A&O x 3 Hosp A/P - Plan Hyponatremia sepsis Secondary to C. difficile colitis Resolving Diarrhea secondary t0 C. difficile colitis -vancomycin and Flagyl - appreciate GI input. Staph aureus in stool. Possible staph aureus colitis as well- Hepatitis Unclear etiologypossibly alcoholic.- Hepatitis panel is negative GI on boardwaking up from other causes of hepatitis including autoimmune hepatitis. Follow-up on labs.-----AFP --insig. -other labs reviewd - as below Ascites - Coagulopathy Portal hypertension Alcoholic cirrhosis Unclear etiologyfollowing up on SENIOR UNDERWRITING ASSISTANT evaluation to rule out malignancy. Indeed CA 19.9, CA 153, CEA 125 will significantly elevated on her last admission. Ascitic fluid not suggestive of SBP Had 2.5 L removed on day of admission. We will start her spironolactone and reduce dose of Lasix on account of hypokalemia. Left adnexal mass Unlikely malignancy? Repeat cytology from ascites fluid negative Hypokalemia corrected Reduce dose of Lasix. Bilateral leg and foot painappears neuropathic This has been chronic and etiology is unclear. Patient does not appear to have diabetes thyroid disease B12 was within normal limits Gabapentin 600 mg twice daily todayincreased dose as needed Possible UTI No symptoms however has nitrates and WBCs Culture appears to be growing mixed organismscontaminant UA --cipro will cover for UTI Leukocytosis Continued to have downward trend Hyponatremia Improved Fibroid uterus Status post remote cholecystectomy Left adnexal mass with CEA 125 will significantly elevated on her last admission. -NODE JS DEVELOPER consult note reviewed and discussed She will follow-up with outpatient setting at [place] -Contact Dr. Isamar Wilcox cell #[phone] work #[phone] fax #[phone] VTE prophylaxisstart Lovenox today
[2020-05-11 21:49] LABS: #Basophils 0.2 thou/uL (0.0-0.2); #Eosinphils 0.4 thou/uL (0.0-0.7); #Lymphocytes 2.5 thou/uL (1.20-3.40); #Monocytes 1.8 thou/uL (0.11-0.59); #Neutrophils 12.9 thou/uL (1.40-6.50); %Basophils 1.1 % (0.0-1.0); %Eosinophils 2.4 % (0.0-10.0); %Lymphocytes 14.1 % (21.0-51.0); %Neutrophils 72.3 % (42.0-75.0); Hemoglobin 9.9 g/dL (12.0-16.0); Mean Corpuscular HGB CONC 32.1 g/dL (32.0-36.0); Mean Corpuscular Hemoglobin 35.5 pg (27.0-31.0); Mean Platelet Volume 8.6 fL (7.4-10.4); Platelet Count 278 thou/uL (130-400); RBC Distribution Width 14.7 % (11.5-14.5); Red Blood Cell (RBC) Count 2.78 mill/uL (4.20-5.40); White Blood Cell (WBC) Count 17.8 thou/uL (4.8-10.8)
[2020-05-11 22:13] LABS: ALT (SGPT) 21 U/L (8-55); AST (SGOT) 39 U/L (5-34); Albumin 2.2 g/dL (3.5-5.0); Alkaline Phosphatase 160 U/L (40-110); Anion Gap 12 mmol/L (10-20); BUN (Urea Nitrogen) 15 mg/dL (7.0-18.7); Bilirubin, Total 3.6 mg/dL (0.2-1.2); Calc. Creatinine Clearance 93 mL/min (70-130); Calcium 8.1 mg/dL (7.8-10.44); Carbon Dioxide 22 mmol/L (22-29); Chloride 101 mmol/L (98-107); Estimated GFR-MDRD 78; Globulin 4.3 g/dL (2.4-3.5); Glucose 113 mg/dL (70-105); Magnesium 1.7 mg/dL (1.6-2.6); Potassium 3.8 mmol/L (3.5-5.1); Protein, Total 6.5 g/dL (6.0-8.3); Sodium 131 mmol/L (136-145)
[2020-05-12] MEDS: Vancomycin HCl 25 MG/ML Oral PO SCH ×5 (00:21→23:50)
[2020-05-12] MEDS: traMADol HCl 50 MG TAB PO PRN ×2 (05:45→14:30)
[2020-05-12] MEDS ORDERED: Magnesium 2 GM/50 ML 2 GM in Premix Bag 1 BAG IVPB SCH (07:00)
[2020-05-12] MEDS: Spironolactone 100 MG TAB PO SCH (08:32)
[2020-05-12] MEDS: Famotidine 20 MG TAB PO SCH ×2 (08:32→20:55)
[2020-05-12] MEDS: Folic Acid 1 MG TAB PO SCH (08:33)
[2020-05-12] MEDS: Thiamine 100 MG TAB PO SCH (08:33)
[2020-05-12] MEDS: Furosemide 20 MG TAB PO SCH ×2 (08:33→14:29)
[2020-05-12] MEDS: Multivitamin W/ Minerals 1 TAB PO SCH (08:33)
[2020-05-12] MEDS: Gabapentin 300 MG CAP PO SCH ×3 (08:33→20:56)
[2020-05-12] MEDS: HYDROcodone/Acetaminophen 5/325 mg Tablet PO PRN ×2 (08:34→21:02)
--- NOTE | 2020-05-12 11:31 | ULT ---
ULTRASOUND ABDOMEN LIMITED: HISTORY: Abdominal tenderness and discomfort. COMPARISON: 05/07/2020. FINDINGS: There is small to moderate free fluid in the pelvis greatest in the left lower quadrant of the abdome n. IMPRESSION: Small to moderate ascites. POS: HOME
--- NOTE | 2020-05-12 14:03 | PDOC.HOSPP ---
- Subjective Encounter Date: 05/12/20 Encounter Time: 09:50 Subjective: Her abdomen is quite distended. She also did not had any bowel movement today. - Objective Vital Signs & Weight: Vital Signs (12 hours) Temp Pulse Resp BP BP Pulse Ox 05/12/20 12:38 97.7 F 109 H 18 131/82 97 05/12/20 12:00 131/82 05/12/20 08:00 132/90 95 05/12/20 07:17 98.5 F 114 H 18 132/90 95 05/12/20 04:00 98.6 F 108 H 20 124/76 95 Weight Admit Weight 146 lb 12.8 oz Weight 146 lb 12.8 oz Most Recent Monitor Data Heart Rate from ECG 101 NIBP 141/83 NIBP BP-Mean 102 Respiration from ECG 29 SpO2 100 I&O: 05/11/20 05/12/20 05/13/20 06:59 06:59 06:59 Intake Total 2320 240 Balance 2320 240 Result Diagrams: 05/11/20 21:25 05/11/20 21:25 Hospitalist ROS - Medication Medications: Active Medications Generic Name Dose Route Start Last Admin Trade Name Freq PRN Reason Stop Dose Admin Hydrocodone Bitart/Acetaminophen 1 tab 05/04/20 16:29 05/12/20 08:34 [place] 5/325 PO 1 tab Q4H PRN Administration Pain Famotidine 20 mg 05/07/20 21:00 05/12/20 08:32 Pepcid PO 20 mg BID SHUKRI Administration Folic Acid 1 mg 05/05/20 09:00 05/12/20 08:33 Folvite PO 1 mg DAILY SHUKRI Administration Furosemide 20 mg 05/07/20 09:00 05/12/20 08:33 Lasix PO 20 mg 0900,1400 SHUKRI Administration Gabapentin 600 mg 05/11/20 15:00 05/12/20 08:33 Neurontin PO 600 mg TID SHUKRI Administration Iron/Minerals/Multivitamins 1 tab 05/05/20 09:00 05/12/20 08:33 Theragran M PO 1 tab DAILY SHUKRI Administration Sertraline HCl 50 mg 05/04/20 09:00 05/12/20 08:33 Zoloft PO 50 mg DAILY SHUKRI Administration Spironolactone 100 mg 05/10/20 08:00 05/12/20 08:32 Aldactone PO 100 mg QAM-WM SHUKRI Administration Thiamine HCl 100 mg 05/05/20 09:00 05/12/20 08:33 Thiamine PO 100 mg DAILY SHUKRI Administration Tramadol HCl 50 mg 05/04/20 09:57 05/12/20 05:45 Ultram PO 50 mg Q4H PRN Administration Moderate to Severe Pain (6-10) Vancomycin HCl 250 mg 05/07/20 18:00 05/12/20 12:44 First Vancomycin PO 250 mg Q6HR SHUKRI Administration - Exam General Appearance: NAD, awake alert Eye: PERRL ENT: normocephalic atraumatic Neck: supple Respiratory: CTAB, normal chest expansion Gastrointestinal: soft, normal bowel sounds Neurological: cranial nerve grossly intact, no focal deficits Psychiatric: A&O x 3 Hosp A/P - Plan Hyponatremia sepsis Secondary to C. difficile colitis Resolving Diarrhea secondary t0 C. difficile colitis -vancomycin and Flagyl - appreciate GI input. Staph aureus in stool. Possible staph aureus colitis as well- Hepatitis Unclear etiologypossibly alcoholic.- Hepatitis panel is negative GI on boardwaking up from other causes of hepatitis including autoimmune hepatitis. Follow-up on labs.-----AFP --insig. -other labs reviewd - as below Ascites - Coagulopathy Portal hypertension Alcoholic cirrhosis Unclear etiologyfollowing up on REGISTERED SALES ASSISTANT evaluation to rule out malignancy. Indeed CA 19.9, CA 153, CEA 125 will significantly elevated on her last admission. Ascitic fluid not suggestive of SBP Had 2.5 L removed on day of admission. We will start her spironolactone and reduce dose of Lasix on account of hypokalemia. Left adnexal mass Unlikely malignancy? Repeat cytology from ascites fluid negative Hypokalemia corrected Reduce dose of Lasix. Bilateral leg and foot painappears neuropathic This has been chronic and etiology is unclear. Patient does not appear to have diabetes thyroid disease B12 was within normal limits Gabapentin 600 mg twice daily todayincreased dose as needed Possible UTI No symptoms however has nitrates and WBCs Culture appears to be growing mixed organismscontaminant UA --cipro will cover for UTI Leukocytosis Continued to have downward trend Hyponatremia Improved Fibroid uterus Status post remote cholecystectomy Left adnexal mass with CEA 125 will significantly elevated on her last admission. -PHARMACY GENERAL MANAGER consult note reviewed and discussed She will follow-up with outpatient setting at [place] -Contact Dr. Isamar Wilcox cell #[phone] work #[phone] fax #[phone] 7th Increase abdominal distention -Patient on Lasix 20 mg twice a day as well as Spironolactone 100 mg daily. -Despite aggressive diuretic use increasing abdominal girth seems to be worrying. -We will repeat the paracentesis likely tomorrow given holiday today. - VTE prophylaxisstarted Lovenox
[2020-05-12] MEDS ORDERED: Enoxaparin Sodium 40 MG/0.4 ML SYRINGE SC SCH (21:00)
[2020-05-13 05:50] LABS: #Basophils 0.1 thou/uL (0.0-0.2); #Eosinphils 0.4 thou/uL (0.0-0.7); #Lymphocytes 2.1 thou/uL (1.20-3.40); #Monocytes 1.6 thou/uL (0.11-0.59); #Neutrophils 12.3 thou/uL (1.40-6.50); %Basophils 0.7 % (0.0-1.0); %Eosinophils 2.2 % (0.0-10.0); %Lymphocytes 12.9 % (21.0-51.0); %Monocytes 9.7 % (0.0-10.0); %Neutrophils 74.5 % (42.0-75.0); Hemoglobin 9.3 g/dL (12.0-16.0); Mean Corpuscular HGB CONC 31.1 g/dL (32.0-36.0); Mean Platelet Volume 8.1 fL (7.4-10.4); Platelet Count 296 thou/uL (130-400); RBC Distribution Width 14.8 % (11.5-14.5); Red Blood Cell (RBC) Count 2.74 mill/uL (4.20-5.40); White Blood Cell (WBC) Count 16.5 thou/uL (4.8-10.8)
[2020-05-13 05:58] LABS: INR-International Normal Ratio 1.7; PTT 43.4 sec (22.9-36.1); Prothrombin Time 19.9 sec (12.0-14.7)
[2020-05-13 06:12] LABS: Anion Gap 12 mmol/L (10-20); BUN (Urea Nitrogen) 13 mg/dL (7.0-18.7); Calc. Creatinine Clearance 114 mL/min (70-130); Calcium 7.8 mg/dL (7.8-10.44); Carbon Dioxide 20 mmol/L (22-29); Chloride 103 mmol/L (98-107); Estimated GFR-MDRD Greater than 90; Glucose 141 mg/dL (70-105); Potassium 3.9 mmol/L (3.5-5.1); Sodium 131 mmol/L (136-145)
[2020-05-13] MEDS: Vancomycin HCl 25 MG/ML Oral PO SCH ×2 (06:23→12:02)
[2020-05-13] MEDS ORDERED: Lidocaine 1% PF 5 ML VIAL ONE (08:25)
[2020-05-13] MEDS ORDERED: Sodium Bicarbonate 2.5 MEQ/5 ML VIAL ONE (08:25)
--- NOTE | 2020-05-13 09:27 | ULT ---
US Paracentesis with Imaging History: Ascites Comparison: Paracentesis May 07, 2020 Findings: Patient was brought to the ultrasound suite. All questions were answered. Informed consent obtained. Timeout performed. The patient's left lower quadrant was prepped and draped in normal sterile fashion. After adequate lo cornel anesthesia with lidocaine, the peritoneal space was accessed with a 5 Danish catheter. 1.2 L of straw-colored fluid was removed. Patient tolerated the procedure well without complication. Impression: Technically successful ultrasound-guided paracentesis.
[2020-05-13] MEDS: Multivitamin W/ Minerals 1 TAB PO SCH (09:55)
[2020-05-13] MEDS: Furosemide 20 MG TAB PO SCH ×2 (09:55→14:20)
[2020-05-13] MEDS: Gabapentin 300 MG CAP PO SCH ×2 (09:55→14:20)
[2020-05-13] MEDS: Folic Acid 1 MG TAB PO SCH (09:55)
[2020-05-13] MEDS: Spironolactone 100 MG TAB PO SCH (09:55)
[2020-05-13] MEDS: Thiamine 100 MG TAB PO SCH (09:55)
[2020-05-13] MEDS: Famotidine 20 MG TAB PO SCH (09:55)
[2020-05-13 14:39] VITALS: BP 123/81; TEMP 99.2
--- NOTE | 2020-05-14 07:33 | DIS ---
DATE OF ADMISSION: 05/03/2020 DATE OF DISCHARGE: 05/13/2020 DISCHARGE DIAGNOSES: 1. Sepsis secondary to Clostridium difficile colitis. 2. Hyponatremia. 3. Hepatitis. 4. Ascites secondary to alcoholic cirrhosis. 5. Coagulopathy secondary to alcoholic cirrhosis. 6. Portal hypertension. 7. Left adnexal mass fibroid tissue. 8. Peripheral neuropathy. 9. Fibroid uterus. 10. Status post remote cholecystectomy. 11. Left adnexal mass with CA-125 elevated. DISCHARGE MEDICATIONS: 1. Gabapentin 600 mg 3 times a day. 2. Lasix 40 mg daily. 3. Spironolactone 100 mg daily. 4. Vancomycin 250 mg q.6 hours for next eight days. 5. Xanax 0.25 mg as needed. 6. Ultram 50 mg q.8 as needed. 7. Omeprazole 40 mg daily. 8. Folic acid 1 mg daily. 9. Zoloft 50 mg daily. PHYSICAL EXAMINATION: VITAL SIGNS: On the day of discharge, her temperature is 98.7, pulse 103, blood pressure is 123/78, satting 96% on room air. GENERAL: The patient is alert, oriented. She just returned after 1.2 L of ascites removed. She is still concerned about edema on her feet. I spent over 10 minutes discussing with her care. I also talked to the nurse as well as rn case mgr about the discharge plan. The patient's insurance would not allow to provide any rehab options as well as home health. The patient is ambulating without any distress , and she does not require any active inpatient rehab at this point. The main concern is the recurrence of her ascites and needs periodic paracentesis. CARDIOVASCULAR: Regular rate and rhythm without murmurs, rubs, or gallops. LUNGS: Clear. ABDOMEN: Slightly reduced in its size from yesterday, but it is still distended. It is soft and good bowel sounds. HOSPITAL COURSE: This is a 49-year-old female, admitted with diarrhea and electrolyte abnormalities. She had C diff colitis and started on vancomycin and Flagyl, and she tolerated well. She also had urine culture growing E coli of May 03, but it is only about 75,000 units. Stool studies grew some Staph that is probably a contaminant. Negative for Giardia as well as Cryptosporidium antigen. Absence of elevated lactoferrin. She improved clinically with bowel movements and had only one or two per day lately. Initially, she had roughly 2.5 L of ascites removed and SAAG is 1.1, consistent with portal hypertension, but fluid not suggestive of spontaneous bacterial peritonitis. Started on spironolactone and Lasix and seems to be tolerating well. She has bilateral neuropathy and on gabapentin. Her B12 was in the normal limit. The patient also noted to have a left adnexal mass, which happened to be a fibroid uterus. She had elevated CEA during the last admission. I have consulted the OB for that. Their recommendation is for her to follow up as an outpatient. After talking to the patient extensively, she also followed for this same issue at [place]. Based on the conversation, it appears that Toilet And Laundry Soap Supervisor/oncologist wants her to follow up with GI specialist. Her fast buildup of ascites despite being on diuretics probably related to alcoholic cirrhosis, more so than any Toilet And Laundry Soap Supervisor/Oncology related issue. We also had abdomen and pelvis CT done on May 03 that showed mural thickening involving the cecum and ascending colon suggesting colitis. There is free intraperitoneal fluid, but there are fibroid changes involving the uterus. Previous cholecystectomy. Other visceral organs like liver, spleen, pancreas, and kidneys are unremarkable. No evidence of bowel obstruction. Also, they did not make any comment about the peritoneum. Based on this report , it does not appear that she has any concern for peritoneal carcinomatosis as an etiology for her rapid ascites buildup. If needed, if patient opted to follow up with the Toilet And Laundry Soap Supervisor/oncologist, the recommendation is to follow up with Dr. Isamar Wilcox at [place], work number [phone]. The information is passed along to the patient. She is also informed to follow up with the [facility] with Dr. Lechuga. DISCHARGE INSTRUCTIONS: Activity as tolerated. Regular diet. Follow up with the PCP in 1 week. Follow up with Dr. Lechuga for ascites/cirrhosis management. Follow up with Dr. Isamar Wilcox, if desired, at [place] for Toilet And Laundry Soap Supervisor/Oncology related to her fibroid uterus. Discharge time took over 35 minutes. Job ID: [id number] MTDD
--- NOTE | 2020-05-15 12:51 | PQF ---
CLINICAL DOCUMENTATION CLARIFICATION FORM: Dear : Aydee Riggs MD Date / Time: 05/15/2020 Please exercise your independent, professional judgment in responding to the clarification form. Clinical indicators are provided on the bottom of this form for your review Please check appropriate box(es) to clarify if the following diagnosis has been ruled in our ruled out: [ ] Ruled in Type II NSTEMI [ ] Continue to treat [ ] Resolved [ x ] Ruled out Type II NSTEMI [ ] Improving [ ] Cannot rule out diagnosis [ ] Other diagnosis (Please specify if any) [ ] Unable to determine Physician Signature: Date/Time: For continuity of documentation, please document condition throughout progress notes and discharge summary. Thank You. To be completed by CDI/Coding staff for physician review: w Present w Clinical Indicators - Signs / Symptoms / Labs w Results and Location in Medical Record w [ x] w Elevated troponin-likely troponin type II NSTEMI w H&P on 05/03 w [ x ] w Troponin trended down from 0.03-0.22 w H&P on 05/03 w [ x] w Palpitations, paroxysmal noc. dyspnea w H&P on 05/03 w [ ] w w w Present w Risk Factors w Results and Location in Medical Record w [ x] w HTN w H&P on 05/03 w [ ] w w w [ ] w w w [ ] w w w Present w Treatments w Results and Location in Medical Record w [ x ] w Troponin trending down- continue monitoring w H&P on 05/03 w [ ] w w w [ ] w w w [ ] w w CDS/Black Pickler Signature: KR Phone #: Date/Time: 05/15/2020 This is a permanent part of the Medical Record [facility]
[2020-05-15 20:08] LABS: QuantiFERON-TB Gold Plus Negative (Negative)
--- NOTE | 2020-05-17 16:35 | EKG ---
Test Reason : Blood Pressure : / mmHG Vent. Rate : 101 BPM Atrial Rate : 101 BPM P-R Int : 132 ms QRS Dur : 080 ms QT Int : 412 ms P-R-T Axes : 036 003 233 degrees QTc Int : 534 ms Sinus tachycardia Low voltage QRS Cannot rule out Anterior infarct , age undetermined Abnormal ECG Confirmed by QAMAR REGALADO ([id number]), electronic news gathering editor ANNELIESE LOVE ([id number]) on 05/17/2020 4:35:24 PM Referred By: Confirmed By:QAMAR REGALADO
== END 2020-05-13 14:44 | disposition home or self-care (01) | DRG 872 ==
LOC: ERS 14:48 → IMCU/EMU 18:46 → T4-A 05-05 15:06
PROVIDERS: ADMIT Student in an Organized Health Care Education/Training Program; ATTEND Student in an Organized Health Care Education/Training Program
PROC: 0W9G3ZZ Drainage of Peritoneal Cavity, Percutaneous Approach (ICD-10-PCS; principal; 2020-05-07)
PROC: 0W9G3ZZ Drainage of Peritoneal Cavity, Percutaneous Approach (ICD-10-PCS; 2020-05-13)
DX: A41.9 Sepsis, unspecified organism (principal); N39.0 Urinary tract infection, site not specified; E87.1 Hypo-osmolality and hyponatremia; A04.72 Enterocolitis due to Clostridium difficile, not specified as recurrent; K76.6 Portal hypertension; D68.4 Acquired coagulation factor deficiency; R65.20 Severe sepsis without septic shock; R73.9 Hyperglycemia, unspecified; G43.909 Migraine, unspecified, not intractable, without status migrainosus; I10 Essential (primary) hypertension; F41.9 Anxiety disorder, unspecified; K70.11 Alcoholic hepatitis with ascites; G62.9 Polyneuropathy, unspecified; M79.7 Fibromyalgia; Z20.828 Contact with and (suspected) exposure to other viral communicable diseases; D25.9 Leiomyoma of uterus, unspecified; R19.09 Other intra-abdominal and pelvic swelling, mass and lump; K70.31 Alcoholic cirrhosis of liver with ascites; B96.20 Unspecified Escherichia coli [E. coli] as the cause of diseases classified elsewhere; E87.6 Hypokalemia; Z90.49 Acquired absence of other specified parts of digestive tract; Z79.899 Other long term (current) drug therapy
CPT/HCPCS: 36415; 49083; 71045; 74177; 76705; 80048; 80053; 80074; 80306; 80307; 81003; 81015; 81025; 82042; 82103; 82104; 82105; 82140; 82390; 82553; 82728; 83036; 83516; 83540; 83550; 83605; 83630; 83690; 83735; 84100; 84157; 84484; 85025; 85060; 85610; 85730; 86038; 86225; 86480; 86780; 87040; 87045; 87046; 87070; 87077; 87086; 87149; 87186; 87205; 87324; 87328; 87329; 87427; 87449; 87493; 87635; 88112; 88305; 89051; 93005; 93923; 93970; 96361; 96365; 96366; 96367; 96368; 96375; J0692; J2270; J3411; J3430; J3475; J3480; J3490; J7050; Q9967; U0003

== ENCOUNTER 2020-06-03 17:03 | Emergency (ER) | payer OTHER ==
[2020-06-03 18:06] LABS: #Basophils 0.1 thou/uL (0.0-0.2); #Eosinphils 0.1 thou/uL (0.0-0.7); #Lymphocytes 1.8 thou/uL (1.20-3.40); #Neutrophils 8.3 thou/uL (1.40-6.50); %Basophils 0.9 % (0.0-1.0); %Eosinophils 0.9 % (0.0-10.0); %Lymphocytes 15.8 % (21.0-51.0); %Monocytes 8.8 % (0.0-10.0); %Neutrophils 73.6 % (42.0-75.0); Hemoglobin 10.2 g/dL (12.0-16.0); Mean Corpuscular Hemoglobin 33.5 pg (27.0-31.0); Platelet Count 264 thou/uL (130-400); RBC Distribution Width 13.1 % (11.5-14.5); Red Blood Cell (RBC) Count 3.05 mill/uL (4.20-5.40); White Blood Cell (WBC) Count 11.3 thou/uL (4.8-10.8)
[2020-06-03 18:08] LABS: INR-International Normal Ratio 1.7; PTT 44.8 sec (22.9-36.1); Prothrombin Time 19.9 sec (12.0-14.7)
[2020-06-03 18:29] LABS: ALT (SGPT) 13 U/L (8-55); AST (SGOT) 21 U/L (5-34); Albumin 2.4 g/dL (3.5-5.0); Alkaline Phosphatase 113 U/L (40-110); Anion Gap 14 mmol/L (10-20); BUN (Urea Nitrogen) 17 mg/dL (7.0-18.7); Bilirubin, Total 2.2 mg/dL (0.2-1.2); Calc. Creatinine Clearance 0 mL/min (70-130); Calcium 8.3 mg/dL (7.8-10.44); Carbon Dioxide 26 mmol/L (22-29); Chloride 97 mmol/L (98-107); Estimated GFR-MDRD 75; Globulin 4.3 g/dL (2.4-3.5); Glucose 116 mg/dL (70-105); Potassium 3.5 mmol/L (3.5-5.1); Protein, Total 6.7 g/dL (6.0-8.3); Sodium 133 mmol/L (136-145)
[2020-06-03 19:23] LABS: RBC Count-Automated (BF) 87 /cu.mm; WBC/Nucleated-Auto (BF) 142 uL
[2020-06-03 19:41] LABS: BF Color Yellow; Body Fluid Source Ascites Body Fluid; Clarity Hazy (Clear); Tube # 1
[2020-06-03 19:43] LABS: Cell Count Non Hematic 48 %; Lymphocytes 33 %
[2020-06-03 19:44] LABS: BF Segmented Neutrophils 18 %; Eosinophils 1 %
[2020-06-03] MEDS ORDERED: Ketorolac Tromethamine 30 MG/ML VIAL ONE (20:13)
== END 2020-06-03 20:22 | disposition home or self-care (01) ==
LOC: ERS 17:03
DX: R18.8 Other ascites (principal); I10 Essential (primary) hypertension; M79.7 Fibromyalgia; G43.909 Migraine, unspecified, not intractable, without status migrainosus; F41.9 Anxiety disorder, unspecified
CPT/HCPCS: 36415; 49082; 80053; 85025; 85060; 85610; 85730; 87070; 87205; 89051; 96372; J1885

== ENCOUNTER 2020-12-12 14:46 | Outpatient (CLI) | payer OTHER | END 2020-12-12 14:47 | disposition home or self-care (01) | LOC: BICMAMMO 14:46 | PROVIDERS: ATTEND Family Medicine | DX: R92.8 Other abnormal and inconclusive findings on diagnostic imaging of breast (principal) | CPT/HCPCS: G0279 ==

== ENCOUNTER → 2020-12-23 | Day surgery (SDC) | payer OTHER | LOC: MAMMO 06:48 | PROVIDERS: ATTEND Family Medicine | PROC: 0H9U0ZX Drainage of Left Breast, Open Approach, Diagnostic (ICD-10-PCS; principal; 2020-12-23) | DX: D05.12 Intraductal carcinoma in situ of left breast (principal) | CPT/HCPCS: 19081; 76098; 88305; 88341; 88342 ==

== ENCOUNTER 2021-02-24 11:07 | Outpatient (CLI) | payer OTHER ==
[2021-02-24 11:57] LABS: #Basophils 0.1 10x3/uL (0.0-0.2); #Eosinphils 0.3 10x3/uL (0.0-0.5); #Monocytes 0.6 10x3/uL (0.0-1.1); #Neutrophils 3.9 10x3/uL (1.5-8.4); %Eosinophils 4.8 % (0.0-6.0); %Monocytes 9.1 % (0.0-10.0); %Neutrophils 54.8 % (40.0-75.0); Mean Corpuscular HGB CONC 32.5 g/dL (32.0-36.0); Mean Corpuscular Hemoglobin 28.2 pg (27.0-33.0); Mean Corpuscular Volume 86.9 fl (81.6-98.3); Platelet Count 206 10x3/uL (150-450); RBC Distribution Width 14.4 % (11.5-14.5); Red Blood Cell (RBC) Count 4.96 10x6/uL (3.90-5.03); White Blood Cell (WBC) Count 7.1 10x3/uL (3.5-10.5)
[2021-02-24 12:33] LABS: ALT (SGPT) 14 U/L (8-55); AST (SGOT) 15 U/L (5-34); Albumin 3.8 g/dL (3.5-5.0); Alkaline Phosphatase 92 U/L (40-110); Anion Gap 15 mmol/L (10-20); BUN (Urea Nitrogen) 10 mg/dL (7.0-18.7); Bilirubin, Total 0.6 mg/dL (0.2-1.2); Calc. Creatinine Clearance 0 mL/min (70-130); Calcium 9.7 mg/dL (7.8-10.44); Carbon Dioxide 22 mmol/L (22-29); Chloride 108 mmol/L (98-107); Globulin 3.3 g/dL (2.4-3.5); Glucose 85 mg/dL (70-105); Potassium 4.1 mmol/L (3.5-5.1); Protein, Total 7.1 g/dL (6.0-8.3); Sodium 141 mmol/L (136-145)
[2021-02-24 12:34] LABS: INR-International Normal Ratio 1.1; PTT 28.5 sec (22.0-33.0); Prothrombin Time 11.9 sec (9.5-12.1)
[2021-02-24 19:15] LABS: SARS-CoV-2 PCR by NAA Not Detected (NotDetected)
== END 2021-02-24 11:08 | disposition home or self-care (01) ==
LOC: LABBT 11:07
PROVIDERS: ATTEND Surgery
DX: Z01.812 Encounter for preprocedural laboratory examination (principal); D05.12 Intraductal carcinoma in situ of left breast; Z20.822 Contact with and (suspected) exposure to COVID-19
CPT/HCPCS: 80053; 85025; 85610; 85730; U0003; U0005

== ENCOUNTER 2021-02-27 06:59 | Day surgery (SDC) | payer OTHER ==
[2021-02-26 10:39] VITALS: BMI 23.6
[2021-02-27] MEDS ORDERED: Lidocaine 1% w/Epinephrine 1:100K 20 ML VIAL ONE (09:15)
[2021-02-27] MEDS ORDERED: Bupivacaine PF 0.5% 30 ML VIAL ONE (09:15)
[2021-02-27] MEDS ORDERED: Fentanyl 100 MCG/2 ML VIAL ONE ×3 (09:26→11:12)
[2021-02-27] MEDS ORDERED: PHENYLEPHRINE-NS 100 MCG/ML 10 ML SYRINGE ONE (09:37)
[2021-02-27] MEDS ORDERED: Dexamethasone 20 MG/5 ML VIAL ONE (09:37)
[2021-02-27] MEDS ORDERED: ePHEDrine Sulfate 50 MG/10 ML VIAL ONE (09:37)
[2021-02-27] MEDS ORDERED: PROPOFOL 200 MG/20 ML VIAL ONE (09:37)
[2021-02-27] MEDS ORDERED: Ondansetron PF 4 MG/2 ML Vial ONE (09:37)
[2021-02-27] MEDS ORDERED: Lidocaine 1% PF 5 ML VIAL ONE (09:37)
[2021-02-27] MEDS ORDERED: Non-Formulary Medication 1 EACH PO PRN (11:29)
[2021-02-27] MEDS ORDERED: Promethazine HCl 25 MG/ML VIAL IM/IV PRN (11:30)
[2021-02-27] MEDS ORDERED: Ondansetron HCl/PF 4 MG/2 ML Vial IVP PRN (11:30)
[2021-02-27] MEDS ORDERED: HYDROcodone/Acetaminophen 5/325 mg Tablet ONE ×2 (12:32→13:02)
== END 2021-02-27 13:55 | disposition home or self-care (01) ==
LOC: MAMMO 06:59 → SDC 13:55
PROVIDERS: ATTEND Surgery
PROC: 0HBU0ZZ Excision of Left Breast, Open Approach (ICD-10-PCS; principal; 2021-02-27)
DX: D05.12 Intraductal carcinoma in situ of left breast (principal); N60.12 Diffuse cystic mastopathy of left breast; G43.909 Migraine, unspecified, not intractable, without status migrainosus; Z79.899 Other long term (current) drug therapy
CPT/HCPCS: 19281; 76098; 88307; J0690; J1100; J2405; J2704; J3010; S0020

== ENCOUNTER 2021-02-28 07:56 | Day surgery (SDC) | payer OTHER ==
[2021-02-28] MEDS ORDERED: Midazolam HCl 2 mg/2 ml Vial ONE (08:25)
[2021-02-28] MEDS ORDERED: Famotidine/PF 20 mg/2ml Vial ONE (09:11)
[2021-02-28] MEDS ORDERED: Fentanyl 100 MCG/2 ML VIAL ONE ×2 (09:11)
[2021-02-28] MEDS ORDERED: Lidocaine 1% PF 5 ML VIAL ONE (09:20)
[2021-02-28] MEDS ORDERED: PROPOFOL 200 MG/20 ML VIAL ONE (09:20)
[2021-02-28] MEDS ORDERED: ePHEDrine Sulfate 50 MG/10 ML VIAL ONE (09:20)
[2021-02-28] MEDS ORDERED: Ondansetron PF 4 MG/2 ML Vial ONE (09:20)
[2021-02-28] MEDS ORDERED: Dexamethasone 20 MG/5 ML VIAL ONE (09:20)
[2021-02-28] MEDS ORDERED: PHENYLEPHRINE-NS 100 MCG/ML 10 ML SYRINGE ONE (09:20)
[2021-02-28] MEDS ORDERED: Lidocaine 1% w/Epinephrine 1:100K 20 ML VIAL ONE (09:33)
[2021-02-28] MEDS ORDERED: Bupivacaine 0.25% HCL 30 ML VIAL ONE ×2 (09:33→09:34)
[2021-02-28] MEDS ORDERED: HYDROmorphone 2 MG/ML VIAL SLOW IVP PRN (09:47)
[2021-02-28] MEDS ORDERED: Promethazine HCl 25 MG/ML VIAL IM PRN (09:47)
[2021-02-28] MEDS ORDERED: Meperidine HCl/PF 25 MG/ML VIAL SLOW IVP PRN (09:47)
[2021-02-28] MEDS ORDERED: Promethazine HCl 25 MG/ML VIAL SLOW IVP PRN (09:47)
[2021-02-28] MEDS ORDERED: HYDROcodone/Acetaminophen 5/325 mg Tablet ONE (11:13)
== END 2021-02-28 12:20 | disposition home or self-care (01) ==
LOC: SDC 07:56
PROVIDERS: ATTEND Specialist
PROC: 0JC60ZZ Extirpation of Matter from Chest Subcutaneous Tissue and Fascia, Open Approach (ICD-10-PCS; principal; 2021-02-28)
DX: M96.841 Postprocedural hematoma of a musculoskeletal structure following other procedure (principal)
CPT/HCPCS: J0690; J1100; J2250; J2405; J2704; J3010; S0020; S0028

== ENCOUNTER 2021-04-27 14:16 | Outpatient (CLI) | payer OTHER | END 2021-04-27 14:17 | disposition home or self-care (01) | LOC: BICMAMMO 14:16 | PROVIDERS: ATTEND Radiology Radiation Oncology | DX: N63.20 Unspecified lump in the left breast, unspecified quadrant (principal); Z98.890 Other specified postprocedural states; Z86.000 Personal history of in-situ neoplasm of breast | CPT/HCPCS: G0279 ==

== ENCOUNTER 2021-09-02 13:37 | Outpatient (CLI) | payer OTHER | END 2021-09-02 13:38 | disposition home or self-care (01) | LOC: SCSMRI 13:37 | PROVIDERS: ATTEND Internal Medicine Gastroenterology | DX: K74.60 Unspecified cirrhosis of liver (principal); K76.0 Fatty (change of) liver, not elsewhere classified | CPT/HCPCS: 74183 ==

== ENCOUNTER 2021-12-16 13:41 | Outpatient (CLI) | payer OTHER | END 2021-12-16 13:42 | disposition home or self-care (01) | LOC: BICMAMMO 13:41 | PROVIDERS: ATTEND Surgery | DX: Z08 Encounter for follow-up examination after completed treatment for malignant neoplasm (principal); Z85.3 Personal history of malignant neoplasm of breast | CPT/HCPCS: 77066; G0279 ==

== ENCOUNTER 2022-05-04 00:41 | Emergency (ER) | payer OTHER ==
[2022-05-04 01:16] LABS: #Basophils 0.1 thou/uL (0.0-0.2); #Eosinphils 0.1 thou/uL (0.0-0.7); #Lymphocytes 2.6 thou/uL (1.20-3.40); #Neutrophils 7.5 thou/uL (1.40-6.50); %Basophils 0.7 % (0.0-1.0); %Eosinophils 1.3 % (0.0-10.0); %Lymphocytes 22.7 % (21.0-51.0); %Monocytes 8.9 % (0.0-10.0); %Neutrophils 66.3 % (42.0-75.0); Hemoglobin 14.7 g/dL (12.0-16.0); Mean Corpuscular HGB CONC 33.4 g/dL (32.0-36.0); Mean Corpuscular Hemoglobin 30.2 pg (27.0-31.0); Mean Corpuscular Volume 90.2 fL (78.0-98.0); Mean Platelet Volume 7.8 fL (7.4-10.4); Platelet Count 216 thou/uL (130-400); RBC Distribution Width 13.4 % (11.5-14.5); Red Blood Cell (RBC) Count 4.86 mill/uL (4.20-5.40); White Blood Cell (WBC) Count 11.3 thou/uL (4.8-10.8)
[2022-05-04 01:38] LABS: ALT (SGPT) 63 U/L (8-55); AST (SGOT) 64 U/L (5-34); Albumin 4.5 g/dL (3.5-5.0); Alkaline Phosphatase 86 U/L (40-110); Anion Gap 20 mmol/L (10-20); BUN (Urea Nitrogen) 8 mg/dL (7.0-18.7); Bilirubin, Total 0.7 mg/dL (0.2-1.2); Calc. Creatinine Clearance 0 mL/min (70-130); Calcium 10.2 mg/dL (7.8-10.44); Carbon Dioxide 19 mmol/L (22-29); Chloride 104 mmol/L (98-107); Estimated GFR 104; Globulin 3.7 g/dL (2.4-3.5); Glucose 132 mg/dL (70-105); Protein, Total 8.2 g/dL (6.0-8.3); Sodium 140 mmol/L (136-145)
[2022-05-04 01:50] LABS: BHCG - Serum Negative (NEGATIVE); Pregs Control Background? CLEAR/WHITE (CLR/WHITE); Pregs Control Bar Appear? YES (CONTROL BAR)
[2022-05-04] MEDS ORDERED: Bacitracin 1 PK ONE (04:03)
== END 2022-05-04 04:00 ==
LOC: ERS 00:41
DX: S80.211A Abrasion, right knee, initial encounter (principal); R10.9 Unspecified abdominal pain; I10 Essential (primary) hypertension; V89.2XXA Person injured in unspecified motor-vehicle accident, traffic, initial encounter
CPT/HCPCS: 36415; 71045; 74177; 80053; 84703; 85025